=== PATIENT | female | born 1945 | race Caucasian/White ===

== ENCOUNTER 2017-09-07 12:54 | Outpatient (CLI) | payer BC, MEDICARE ==
--- NOTE | 2017-09-07 14:21 | PRG ---
DATE OF SERVICE: 09/07/2017 HISTORY: Ms. Yanelis Cleary is a very pleasant 71-year-old accompanied by her who [facility] for evaluation of lymphedema and chronic venous hypertension associated with ulcer s and inflammation. The patient previously stated that she first developed venous ulcerations of the lower legs 3 years ago after spinal Surgery. The patient stated she later underwent venous ablation on the right and on the left in [place]. The patient has a pneumatic pump for in-home lymphedema thera py. She states that she has not been able to use her pneumatic pump because of the degree of drainag e from her right and left lower legs. PHYSICAL EXAMINATION: VITAL SIGNS: Temperature 97.8, pulse 115, respirations 19, blood pressure 108/63. Accu-Chek 124. EXTREMITIES: Large venous ulcerations of the right and left lower legs are present with copious drai nage from the wounds. Cellulitis of the right and left lower legs is also present. Maceration of th e skin of the right and left lower legs is present. Edema of both lower extremities is present. ASSESSMENT AND PLAN: 1. Chronic venous hypertension with ulcers and inflammation. Cellulitis of the right and left lower legs is also present on exam today. Dr. Welch's office has been contacted and I have explai nita to the patient that evaluation for admission for IV antibiotics for cellulitis is recommended. T he patient states she will report to the ER upon her discharge from clinic today. 2. Lymphedema tarda. The patient has acquired a pneumatic pump, but has been unable to utilize her pneumatic pump because of the degree of drainage associated with her wounds. 3. Asthma. 4. Hypertension. 5. Diabetes mellitus. The patient's Accu-Chek in clinic today is 124. The patient has been reminde d that for optimal wound healing, her blood glucoses should remain below 150. 6. Arthritis.
== END 2017-09-07 12:55 | disposition home or self-care (01) ==
LOC: WCC 12:54
PROVIDERS: ATTEND Family Medicine
DX: I87.333 Chronic venous hypertension (idiopathic) with ulcer and inflammation of bilateral lower extremity (principal); E11.622 Type 2 diabetes mellitus with other skin ulcer; L97.929 Non-pressure chronic ulcer of unspecified part of left lower leg with unspecified severity; L97.919 Non-pressure chronic ulcer of unspecified part of right lower leg with unspecified severity; I89.0 Lymphedema, not elsewhere classified; J45.909 Unspecified asthma, uncomplicated; M19.90 Unspecified osteoarthritis, unspecified site; I10 Essential (primary) hypertension
CPT/HCPCS: 97602; 99213; G0463

== ENCOUNTER 2017-09-07 14:16 | Inpatient (IN) | payer MEDICARE, BC ==
[2017-09-07 15:45] LABS: #Basophils 0.1 thou/uL (0.0-0.2); #Eosinphils 0.6 thou/uL (0.0-0.7); #Lymphocytes 1.1 thou/uL (1.20-3.40); #Monocytes 1.2 thou/uL (0.11-0.59); #Neutrophils 11.8 thou/uL (1.40-6.50); %Basophils 0.4 % (0.0-1.0); %Eosinophils 4.3 % (0.0-10.0); %Lymphocytes 7.4 % (21.0-51.0); %Monocytes 8.1 % (0.0-10.0); %Neutrophils 79.9 % (42.0-75.0); Hemoglobin 9.3 g/dL (12.0-16.0); Mean Corpuscular Hemoglobin 26.2 pg (27.0-31.0); Mean Corpuscular Volume 84.5 fL (78.0-98.0); Mean Platelet Volume 6.4 fL (7.4-10.4); Platelet Count 368 thou/uL (130-400); RBC Distribution Width 18.3 % (11.5-14.5); Red Blood Cell (RBC) Count 3.57 mill/uL (4.20-5.40); White Blood Cell (WBC) Count 14.8 thou/uL (4.8-10.8)
[2017-09-07 16:08] LABS: ALT (SGPT) 10 U/L (8-55); AST (SGOT) 12 U/L (5-34); Alkaline Phosphatase 123 U/L (40-150); Anion Gap 13 mmol/L (10-20); BUN (Urea Nitrogen) 43 mg/dL (9.8-20.1); Bilirubin, Total 0.2 mg/dL (0.2-1.2); Calc. Creatinine Clearance 0 mL/min (70-130); Calcium 9.1 mg/dL (7.8-10.44); Carbon Dioxide 20 mmol/L (23-31); Chloride 104 mmol/L (98-107); Estimated GFR-MDRD 50; Globulin 3.6 g/dL (2.4-3.5); Glucose 277 mg/dL (83-110); Potassium 4.8 mmol/L (3.5-5.1); Protein, Total 6.6 g/dL (6.0-8.3); Sodium 132 mmol/L (136-145)
[2017-09-07] MEDS ORDERED: Piperacillin/Tazobactam 4.5 GM VIAL ONE (17:32)
[2017-09-07] MEDS ORDERED: Piperacillin/Tazobactam 4.5 GM in Sodium Chloride 0.9% 100 ML IVPB SCH ×2 (17:45→23:59)
--- NOTE | 2017-09-07 19:29 | RAD ---
THREE VIEWS OF THE RIGHT FORELE09/07/17 INDICATION: Right foreleg pain. COMPARISON: None. FINDINGS: There is advanced osteoarthrosis of the right knee. No acute fracture or subluxation is evident. Ther e is soft tissue swelling of the right foreleg. IMPRESSION: No acute osseous abnormality. Soft tissue of the right foreleg. POS: BH
--- NOTE | 2017-09-07 19:32 | RAD ---
FOUR VIEWS OF THE LEFT FORELE09/07/17 INDICATION: Left leg pain. FINDINGS: There is a left total knee prosthesis. There is soft tissue swelling of the left leg. No definite acu te fracture, subluxation is evident. IMPRESSION: No definite acute osseous abnormality. Soft tissue swelling left foreleg. POS: [facility]
[2017-09-07] MEDS ORDERED: Calcium Carbonate 500 MG ChewTAB PO PRN (19:42)
[2017-09-07] MEDS ORDERED: Ondansetron ODT 4 MG TAB PO PRN (19:42)
[2017-09-07] MEDS ORDERED: VANCOMYCIN/ RENALLY ADJUST ANTIBIOTICS IVPB PRN (19:42)
[2017-09-07] MEDS ORDERED: Milk Of Magnesia 30 ML UDCUP PO PRN (19:42)
[2017-09-07] MEDS ORDERED: Senokot 8.6 MG TAB PO PRN (19:42)
[2017-09-07] MEDS ORDERED: Ondansetron HCl/PF 4 MG/2 ML Vial IVP PRN ×2 (19:42→19:46)
[2017-09-07] MEDS ORDERED: Mag-Al 1200 mg/1200 mg/30 ML UDCUP PO PRN (19:42)
[2017-09-07] MEDS ORDERED: Sodium Chloride 0.9% 1,000 ML IV SCH (19:46)
[2017-09-07] MEDS ORDERED: Ondansetron ODT 4 MG TAB SL PRN (19:46)
--- NOTE | 2017-09-07 19:46 | HP ---
DATE OF ADMISSION: 09/07/2017 PRIMARY CARE PHYSICIAN: Dr. Welch. CHIEF COMPLAINT: Bilateral lower extremity erythema and pain. Please note the patient was sent from [facility] for IV antibiotics. HISTORY OF PRESENT ILLNESS: Patient is a 71-year-old female with chronic venous hypertension with ulcerations and inflammation over the last 3 years, hypertension, diabetes mellitus type 2, chronic atrial fibrillation on anticoagulation who presented to the emergency room from [facility] with above complaints. Patient has a long history of venous ulceration of the lower extremity over the last 3 years that developed after spinal surgery. She underwent venous ablations in bilateral lower extremities at outside facility. She has been also started on pneumatic pump for in-home lymphedema therapy; however, she has not started it due to worsening lower extremity swelling along with drainage. She had a low-grade fever with intermittent chills. Over the last 2-3 days, she noticed worsening pain in bilateral lower extremities along with serosanguineous drainage and worsening erythema. She was seen at the [facility] today and was sent to the emergency room for hospital admission and IV antibiotics. PAST MEDICAL HISTORY: 1. Chronic venous hypertension with ulceration and inflammation as discussed above. 2. Diabetes mellitus type 2. 3. Hypertension. 4. Mild intermittent asthma. 5. Chronic atrial fibrillation, on anticoagulation. 6. History of DVT in the left lower extremity. 7. Physical deconditioning. 8. GERD. 9. Chronic low back pain. 10. Chronic kidney disease, stage 3. PAST SURGICAL HISTORY: 1. Hysterectomy. 2. Cholecystectomy. 3. Pacemaker placement. 4. Left total knee replacement. 5. Bilateral lower extremity venous ablations. ALLERGIES: Patient denies any drug allergies. CURRENT HOME MEDICATIONS: Confirmed with the patient's Eliquis 5 mg b.i.d., Lantus 60 units b.i.d., Humalog sliding scale up to 25 units with each meal, Lovaza 2 grams b.i.d., aspirin 81 mg daily, carvedilol 25 mg b.i.d., valsartan 80 mg daily, torsemide 20-40 mg daily, Xopenex as needed. SOCIAL HISTORY: Patient currently lives at home. She is more or less wheelchair dependent. She lives at home with her spouse. She is FULL CODE. She makes her own decision with the help of her spouse. FAMILY HISTORY: Parents with heart disease. REVIEW OF SYSTEMS: The following complete review of systems was negative, unless otherwise mentioned in the HPI or below: Constitutional: Weight loss or gain, ability to conduct usual activities. Skin: Rash, itching. Eyes: Double vision, pain. ENT/Mouth: Nose bleeding, neck stiffness, pain, tenderness. Cardiovascular: Palpitations, dyspnea on exertion, orthopnea. Respiratory: Shortness of breath, wheezing, cough, hemoptysis, fever or night sweats. Gastrointestinal: Poor appetite, abdominal pain, heartburn, nausea, vomiting, constipation, or diarrhea. Genitourinary: Urgency, frequency, dysuria, nocturia. Musculoskeletal: Pain, swelling. Neurologic/Psychiatric: Anxiety, depression. Allergy/Immunologic: Skin rash, bleeding tendency. PHYSICAL EXAMINATION: VITAL SIGNS: Vital signs in the [facility] showed respirations of 19, pulse rate of 115, temperature 97.8 with blood pressure 108/63. Her temperature in the emergency room was 98.1. GENERAL: A 71-year-old female in distress due to bilateral lower extremity pain. The pain is still persistent despite 2 mg IV morphine. HEENT: Head is atraumatic, normocephalic, Sclerae are anicteric. Moist mucous membrane, no oral lesion. NECK: Supple, no JVD, no carotid bruit. LUNGS: Clear to auscultation bilaterally. No wheezing, rales or rhonchi. HEART: S1, S2 present. Irregularly irregular, 2/6 systolic murmur over the mitral area. ABDOMEN: Soft, nontender, bowel sounds present. Obese. EXTREMITIES: There is significant erythema in bilateral leg up to the knees with bullae. There is maceration of the skin of bilateral lower extremities. Bilateral lower extremity has 3+ to 4+ edema. It was tender to touch and warm. NEUROLOGIC: Grossly nonfocal, moves all four extremities. PSYCHIATRY: Alert, awake, oriented x3. SKIN: Warm and dry. LYMPH NODES: No palpable lymph nodes in the neck. PERIPHERAL VASCULAR: Radial pulses palpable bilaterally. MUSCULOSKELETAL: No joint swelling or tenderness. SKIN: As discussed above. LYMPH NODES: No palpable lymph nodes in the neck and groin. LABORATORY FINDINGS: CBC showed WBC 14.8 with hemoglobin 9.3, hematocrit 30.2, platelets of 368, neutrophils were 79.9. Lactic acid 1.2, BUN 43, creatinine 1.08, sodium 132, potassium 4.8, chloride 104, bicarbonate 20. X-ray of the fibula by my review was negative for any fractures or dislocation. Official report is pending at this time. Telemetry monitoring by my review showed atrial fibrillation. IMPRESSION: 1. Sepsis secondary to extensive bilateral lower extremity cellulitis with ulceration and drainage. 2. Diabetes mellitus type 2, on insulin. 3. Chronic kidney disease stage 3. 4. Chronic atrial fibrillation, on anticoagulation. 5. Hypertension. 6. Dyslipidemia. 7. Mild intermittent asthma. 8. Mild hyponatremia. 9. Metabolic acidosis, probably secondary to sepsis. Lactic acid was 1.2. 10. Morbid obesity. 11. Bilateral lower extremity pain. 12. Degenerative joint disease. 13. Gastroesophageal reflux disease. 14. Chronic lymphedema in bilateral lower extremities with venous hypertension and ulceration. PLAN: Patient will be monitored on the medical floor. Patient will require 3- 4 days IV antibiotics. We will consult Infectious Disease and Wound Care. Leg elevation was emphasized. We will start her on insulin sliding scale with Lantus 50 units b.i.d. with aggressive sliding scale. Resume Eliquis. We will resume aspirin, carvedilol, valsartan, torsemide with nebulizer treatment. We will consult physical therapy, occupational therapy. We will control pain. We will probably add low dose gabapentin. Plan of care was discussed with the patient and the family in detail. They stated understanding. MTDD
[2017-09-07] MEDS ORDERED: Dextrose 50% Abboject 50 ML SYRINGE SLOW IVP PRN (19:47)
[2017-09-07] MEDS ORDERED: Dextrose 5% in Water 1,000 ML IV PRN (19:47)
[2017-09-07] MEDS ORDERED: Insulin Regular 300 UNITS/3 ML VIAL SC PRN (19:47)
[2017-09-07] MEDS: traMADol HCl 50 MG TAB PO PRN (20:53)
[2017-09-07] MEDS ORDERED: Carvedilol 25 MG TAB PO SCH (21:00)
[2017-09-07] MEDS: Gabapentin 100 MG CAP PO SCH (22:31)
[2017-09-07] MEDS: Insulin Glargine 50 UNITS in Pre-Filled Syringe 1 EACH SC SCH (22:31)
[2017-09-07] MEDS: Apixaban 5 MG TAB PO SCH (22:32)
[2017-09-07] MEDS: Famotidine 20 MG TAB PO SCH (22:33)
[2017-09-07] MEDS: Insulin Regular 300 UNITS/3 ML VIAL SC SCH (22:33)
[2017-09-07] MEDS: Senokot S 8.6-50 MG TAB PO SCH (22:35)
[2017-09-07] MEDS: Acetaminophen/Codeine 30-300mg Tablet PO PRN (23:32)
[2017-09-08] MEDS: Piperacillin/Tazobactam 3.375 GM in Sodium Chloride 0.9% 100 ML IVPB SCH ×3 (00:10→11:57)
[2017-09-08] MEDS: Vancomycin HCl 1.25 GM in Sodium Chloride 0.9% 250 ML 250 ML IVPB SCH ×2 (02:11→16:59)
[2017-09-08] MEDS: Acetaminophen/Codeine 30-300mg Tablet PO PRN ×3 (03:33→21:22)
[2017-09-08] MEDS ORDERED: Vancomycin HCl 1 GM in Premix Bag 1 BAG IVPB SCH (05:00)
[2017-09-08 05:37] LABS: Anion Gap 14 mmol/L (10-20); BUN (Urea Nitrogen) 44 mg/dL (9.8-20.1); Calc. Creatinine Clearance 112 mL/min (70-130); Calcium 8.9 mg/dL (7.8-10.44); Carbon Dioxide 21 mmol/L (23-31); Chloride 103 mmol/L (98-107); Estimated GFR-MDRD 53; Glucose 250 mg/dL (83-110); Magnesium 2.2 mg/dL (1.6-2.6); Potassium 5.1 mmol/L (3.5-5.1); Sodium 133 mmol/L (136-145)
[2017-09-08 06:21] LABS: Band 8 % (5-11); Eosinophils 1 % (0-10); Hemoglobin 9.4 g/dL (12.0-16.0); Hypochromia SLIGHT = 6-15 cells (100X) (0-5/hpf); Lymphocytes 6 % (21-51); MDiff Complete? YES; Mean Corpuscular HGB CONC 30.7 g/dL (32.0-36.0); Mean Corpuscular Hemoglobin 26.1 pg (27.0-31.0); Mean Corpuscular Volume 84.8 fL (78.0-98.0); Mean Platelet Volume 6.6 fL (7.4-10.4); Monocytes 6 % (0-10); Neutrophil 79 % (42-75); PLT Morphology Comment Appears Adequate; Platelet Count 393 thou/uL (130-400); RBC Distribution Width 18.2 % (11.5-14.5); White Blood Cell (WBC) Count 21.4 thou/uL (4.8-10.8)
[2017-09-08] MEDS ORDERED: Metoprolol Tartrate 50 MG TAB PO SCH ×2 (08:10→21:00)
[2017-09-08] MEDS: Insulin Regular 300 UNITS/3 ML VIAL SC SCH ×2 (08:22→21:23)
[2017-09-08] MEDS: Famotidine 20 MG TAB PO SCH ×2 (08:23→21:13)
[2017-09-08] MEDS: Apixaban 5 MG TAB PO SCH ×2 (08:23→21:12)
[2017-09-08] MEDS: Senokot S 8.6-50 MG TAB PO SCH ×2 (08:23→21:14)
[2017-09-08] MEDS: Saccharomyces boulardii 250 MG CAP PO SCH (08:23)
[2017-09-08] MEDS: Aspirin 81 mg Enteric Coated Tablet PO SCH (08:23)
[2017-09-08] MEDS: Gabapentin 100 MG CAP PO SCH ×3 (08:24→21:13)
[2017-09-08] MEDS: Nystatin Powder 15 GM BOT TOP SCH ×2 (08:24→21:14)
[2017-09-08] MEDS: Torsemide 20 MG TAB PO SCH ×2 (08:25→14:19)
[2017-09-08] MEDS: Valsartan 80 MG TAB PO SCH (08:25)
[2017-09-08] MEDS ORDERED: Furosemide 40 MG/4 ML VIAL SLOW IVP SCH (08:45)
[2017-09-08] MEDS ORDERED: Insulin Glargine 40 UNITS in Pre-Filled Syringe 1 EACH SC SCH (09:00)
[2017-09-08] MEDS ORDERED: Insulin Glargine 50 UNITS in Pre-Filled Syringe 1 EACH SC SCH (09:00)
[2017-09-08] MEDS: traMADol HCl 50 MG TAB PO PRN (09:33)
[2017-09-08] MEDS ORDERED: diphenhydrAMINE 25 MG CAP PO PRN (10:41)
[2017-09-08] MEDS ORDERED: Fentanyl 100 MCG/2 ML VIAL SLOW IVP PRN (10:43)
[2017-09-08] MEDS ORDERED: Loratadine 10 MG TAB PO PRN (10:43)
--- NOTE | 2017-09-08 11:28 | RAD ---
PORTABLE UPRIGHT FRONTAL CHEST RADIOGRAPH: 09/08/2017 HISTORY: Short of breath. COMPARISON: None. FINDINGS: There is a multilead transvenous pacing device inserted via a left subclavian approach. A dorsal col umn stimulator overlies the lower thoracic spine. The cardiac silhouette is enlarged. No pneumothor ax, pleural fluid, lobar consolidation, or alveolar edema. IMPRESSION: No focal consolidation or alveolar edema. POS: [facility]
[2017-09-08] MEDS ORDERED: Insulin Regular 300 UNITS/3 ML VIAL SC SCH ×2 (11:30→16:30)
--- NOTE | 2017-09-08 13:34 | EKG ---
Test Reason : Blood Pressure : / mmHG Vent. Rate : 115 BPM Atrial Rate : 082 BPM P-R Int : 000 ms QRS Dur : 074 ms QT Int : 310 ms P-R-T Axes : 000 034 -57 degrees QTc Int : 428 ms Atrial fibrillation with rapid ventricular response Nonspecific ST and T wave abnormality Abnormal ECG Confirmed by SALIMA BLACKWOOD ([id number]) on 09/08/2017 1:33:39 PM Referred By: VINAYAK Confirmed By:SALIMA BLACKWOOD
[2017-09-08] MEDS: cefTRIAXone\\ROCEPHIN 1 GM, Admixture Fee 1 EACH in Sodium Chloride 0.9% 100 ML IVPB SCH (18:00)
[2017-09-08] MEDS: Insulin Glargine 50 UNITS in Pre-Filled Syringe 1 EACH SC SCH (21:13)
--- NOTE | 2017-09-08 22:48 | PDOC.PN ---
- Subjective Encounter Start Date: 09/08/17 Encounter Start Time: 09:00 RN called due to SOB with tachycardia with HR in 130s. Pt in mild resp distress requiring O2 supp. Has discomfort in B/L leg. No other complaints. No other overnight events. Patient seen and examined. - Objective Resuscitation Status: Resuscitation Status FULL:Full Resuscitation MAR Reviewed: Yes Vital Signs & Weight: Vital Signs (12 hours) Temp Pulse Resp BP Pulse Ox 09/08/17 20:15 97.9 F 91 18 139/95 H 100 09/08/17 20:00 100 09/08/17 16:50 98.5 F 111 H 20 179/70 H 100 Weight Admit Weight 311 lb Weight 311 lb 4.8 oz Most Recent Monitor Data Heart Rate from ECG 110 NIBP 141/77 NIBP BP-Mean 105 Respiration from ECG 20 SpO2 83 I&O: 09/07/17 09/08/17 09/09/17 06:59 06:59 06:59 Intake Total 640 Output Total 595 Balance 45 Result Diagrams: 09/09/17 05:02 09/09/17 05:02 Additional Labs: Accuchecks 09/08/17 09/08/17 09/08/17 21:01 20:15 19:25 POC Glucose 76 74 81 09/08/17 09/08/17 09/08/17 16:48 10:57 04:44 POC Glucose 120 H 202 H 272 H Microbiology 09/07/17 16:34 Venous blood - Left Arm Blood Culture - Preliminary Specimen has been received and culture in progress. No Growth to date. 09/07/17 16:10 Venous blood - Right Arm Blood Culture - Preliminary Specimen has been received and culture in progress. No Growth to date. Radiology Reviewed by me: Yes (CXR - No infiltrate/edema) EKG Reviewed by me: Yes (Afib with RVR) Phys Exam - Physical Examination Pt in mild distress Respiratory: no wheezing Bibasilar rales with rhonchi B/L, Some accessory muscle use Cardiovascular: no rub, irregular No heaves/pulsations, 2/6 SM over M area Gastrointestinal: soft, non-tender, no distention, positive bowel sounds Obese Musculoskeletal: edema present with erythema in B/L Le Neurological: non-focal, moves all 4 limbs Psychiatric: normal affect, A&O x 3 Dx/Plan - Plan plan discussed w/ family, mccullough catheter, continue antibiotics, PT/OT, social media marketing manager, respiratory therapy, incentive spirometry IMPRESSION: 1. Sepsis secondary to extensive bilateral lower extremity cellulitis with ulceration and drainage ? bacteremia 2. Chronic atrial fibrillation with RVR, (on anticoagulation) 3. Diabetes mellitus type 2, on insulin. 4. Chronic kidney disease stage 3. 5. Hypertension 6. Dyslipidemia/Mild intermittent asthma/Mild hyponatremia./Metabolic acidosis/ Bilateral lower extremity pain/Degenerative joint disease/Gastroesophageal reflux disease/Chronic lymphedema in bilateral lower extremities with venous hypertension and ulceration/ Morbid obesity BMI 49. PLAN: * Change Coreg to Metoprolol for rate control with Eliquis * T/F to Tele for close monitoring * Cont Vancomycin with Zosyn, Monitor Vancomycin level * Increase Lantus dose * 1 dose of Lasix * Cont other meds as below * Await cultures * Cont Wound care * AM labs Review of Systems - Review of Systems Constitutional: malaise. negative: fever, chills, sweats, weakness, other Respiratory: negative: Cough, Dry, Shortness of Breath, Hemoptysis, SOB with Excertion, Pleuritic Pain, Sputum, Wheezing Cardiovascular: palpitations, orthopnea, edema. negative: chest pain, paroxysmal nocturnal dyspnea, light headedness, other Gastrointestinal: negative: Nausea, Vomiting, Abdominal Pain, Diarrhea, Constipation, Melena, Hematochezia, Other - Medications/Allergies Allergies/Adverse Reactions: Allergies Allergy/AdvReac Type Severity Reaction Status Date / Time No Known Allergies Allergy Unverified 09/07/17 17:38 Medications: Current Medications Acetaminophen (Tylenol) 650 mg PO Q4H PRN PRN Reason: Headache/Fever or Pain Acetaminophen/Codeine Phosphate (Tylenol #3) 1 tab PO Q4H PRN PRN Reason: Moderate Pain (4-6) Last Admin: 09/08/17 21:22 Dose: 1 tab Al Hydroxide/Mg Hydroxide (Maalox) 30 ml PO Q6H PRN PRN Reason: Heartburn or Indigestion Albuterol/Ipratropium (Duoneb) 3 ml NEB [id number] PRN PRN Reason: SOB &/or Wheezing Apixaban (Eliquis) 5 mg PO BID [facility] Last Admin: 09/08/17 21:12 Dose: 5 mg Aspirin (Ecotrin) 81 mg PO DAILY [facility] Last Admin: 09/08/17 08:23 Dose: 81 mg Calcium Carbonate (Tums) 1,000 mg PO Q4H PRN PRN Reason: Heartburn or Indigestion Dextrose/Water (Dextrose 50%) 25 gm SLOW IVP PRN PRN PRN Reason: Hypoglycemia Diltiazem HCl (Cardizem) 30 mg PO Q6HR PRN PRN Reason: HR >120 sustained Diphenhydramine HCl (Benadryl) 25 mg PO Q6H PRN PRN Reason: Itching & Insomnia Stop: 09/09/17 10:42 Last Admin: 09/08/17 11:25 Dose: 25 mg Famotidine (Pepcid) 20 mg PO BID [facility] Last Admin: 09/08/17 21:13 Dose: 20 mg Fentanyl (Sublimaze) 25 mcg SLOW IVP DAILYPRN PRN PRN Reason: Wound Care Last Admin: 09/08/17 12:09 Dose: 25 mcg Gabapentin (Neurontin) 100 mg PO TID [facility] Last Admin: 09/08/17 21:13 Dose: 100 mg Glucagon (Glucagon) 1 mg IM PRN PRN PRN Reason: Hypoglycemia Dextrose/Water (D5w) 1,000 mls @ 0 mls/hr IV .Q0M PRN; As Directed PRN Reason: Hypoglycemia Insulin Glargine 50 units/ (Miscellaneous Medication) 0.5 mls @ 0 mls/hr SC HS [facility] Last Admin: 09/08/17 21:13 Dose: Not Given Insulin Glargine 50 units/ (Miscellaneous Medication) 0.5 mls @ 0 mls/hr SC QAM [facility] Last Admin: 09/08/17 09:06 Dose: Not Given Ceftriaxone Sodium 1 gm/Miscellaneous Medication 1 each/ Sodium Chloride 100 mls @ 200 mls/hr IVPB 1700 [facility] Last Admin: 09/08/17 18:00 Dose: 100 mls Insulin Human Regular (Humulin R) 0 units SC .BEDTIME SLIDING SC PRN PRN Reason: Bedtime Correctional Scale Insulin Human Regular (Humulin R) 0 units SC .AGGRESSIVE SLIDING PRN PRN Reason: Aggressive Sliding Scale Insulin Human Regular (Humulin R) 5 units SC 0730 [facility] Last Admin: 09/08/17 08:22 Dose: 5 units Insulin Human Regular (Humulin R) 5 units SC 1130 [facility] Last Admin: 09/08/17 11:26 Dose: 5 unit Insulin Human Regular (Humulin R) 5 units PA 1630 [facility] Last Admin: 09/08/17 18:02 Dose: 5 unit Insulin Human Regular (Humulin R) 5 units PA HS [facility] Last Admin: 09/08/17 21:23 Dose: Not Given Loratadine (Claritin) 10 mg PO DAILY [facility] Magnesium Hydroxide (Milk Of Magnesium) 30 ml PO DAILYPRN PRN PRN Reason: Constipation Last Admin: 09/08/17 14:00 Dose: 30 ml Metoprolol Tartrate (Lopressor) 50 mg PO BID [facility] Last Admin: 09/08/17 21:13 Dose: 50 mg Nystatin (Mycostatin Powder) 0 gm TOP BID [facility] Last Admin: 09/08/17 21:14 Dose: Not Given Ondansetron HCl (Zofran Odt) 4 mg PO Q6H PRN PRN Reason: Nausea/Vomiting Ondansetron HCl (Zofran) 4 mg IVP Q6H PRN PRN Reason: Nausea/Vomiting Saccharomyces Boulardii (Florastor) 250 mg PO DAILY [facility] Last Admin: 09/08/17 08:23 Dose: 250 mg Senna (Senokot) 2 tab PO HSPRN PRN PRN Reason: Constipation Senna/Docusate Sodium (Senokot S) 1 tab PO BID [facility] Last Admin: 09/08/17 21:14 Dose: Not Given Sodium Chloride (Flush - Normal Saline) 10 ml IVF Q12HR [facility] Last Admin: 09/08/17 21:14 Dose: 10 ml Sodium Chloride (Flush - Normal Saline) 10 ml IVF PRN PRN PRN Reason: Saline Flush Last Admin: 09/08/17 18:01 Dose: 10 ml Torsemide (Demadex) 20 mg PO BID@0900,1400 [facility] Last Admin: 09/08/17 14:19 Dose: 20 mg Tramadol HCl (Ultram) 50 mg PO Q4H PRN PRN Reason: Moderate Pain (4-6) Last Admin: 09/08/17 09:33 Dose: 50 mg Valsartan (Diovan) 80 mg PO DAILY [facility] Last Admin: 09/08/17 08:25 Dose: 80 mg
--- NOTE | 2017-09-09 | CON ---
DATE OF CONSULTATION: 09/08/2017 REASON FOR CONSULTATION: Cellulitis, lower extremities. HISTORY OF PRESENT ILLNESS: A 71-year-old patient, who has a history of venous hypertension and ulcerations, stasis dermatitis, type 2 diabetes and hypertension and chronic atrial fibrillation, on anticoagulation and a prior history of deep vein thrombosis in the left lower extremity, who was admitted because of worsening extremity swelling along with drainage, low grade temperature with chills which have worsened over the past 2-3 days prior to admission. She has some drainage as well associated with it. The patient was seen at wound care and referred to the hospital for admission. According to the wound care note, the patient had not been able to use her pneumatic pump because of drainage associated with the wounds. Currently, she has itching in the lower extremities. She has some dyspnea. No headaches, no sore throat, odynophagia, or dysphagia, no chest pain, no abdominal pain, no diarrhea. The patient is voiding with an indwelling catheter. PAST MEDICAL HISTORY: Includes venous hypertension; chronic stasis dermatitis with ulcerations; type 2 diabetes; atrial fibrillation, on anticoagulation; prior DVT; low back pain; and renal insufficiency. PAST SURGICAL HISTORY: Hysterectomy, cholecystectomy, pacemaker placement, left TKR, bilateral lower extremity venous ablations. ALLERGIES: None. MEDICATIONS: Currently the patient receiving acetaminophen, Maalox, DuoNeb, Eliquis, Ecotrin, Tums, Cardizem, Benadryl, Pepcid, Sublimaze, Neurontin, insulin, loratadine, metoprolol, nystatin, Zosyn, vancomycin. FAMILY HISTORY: Coronary artery disease. SOCIAL HISTORY: Lives at home with . Wheelchair dependent. Never smoker. PHYSICAL EXAMINATION: VITAL SIGNS: T-max 98.3, blood pressure 130/70, pulse 118, O2 sat 97%. SKIN: Demonstrates areas of stasis dermatitis exfoliation. The medial aspect of the left thigh and circumferential areas of skin ulceration with re- epithelization in lower extremities, still blistering with epidermolysis and dry scabs covering this area of ulceration, which is distributed in a very symmetric circumferential fashion, right and left legs, starting about a 15 cm below the right and left knees and extending towards the foot. The patient has no lymphadenopathy. GENERAL: Awake, chronically ill appearing. HEENT: Oral cavity with still quite a few teeth in place. Oral mucosa is moist. NECK: Supple, no jugular vein distention. LUNGS: With symmetric air entry. HEART: S1, S2, regular rate with a soft aortic murmur. ABDOMEN: Not distended or tender. No ascites. No bladder distention. Some intertriginous maceration in the lower abdominal fold area. EXTREMITIES: No joint inflammatory activity noted. Pulses are 1+ in dorsalis pedis. She moves extremities with limitations, caused by the inflammatory process in lower extremities. NEUROLOGIC: She is awake, oriented, follows commands. LABORATORY DATA AND IMAGING: Showed white cell count 14.8 and then 21.4, hemoglobin 9.3 and 9.4, platelets 393 with 79% neutrophils. Chemistry with sodium 133, creatinine 1.03, calcium 8.9. BNP 291. Microbiology: Two sets of blood cultures thus far no growth. She has chest x-ray with no infiltrates. Tibia and fibula x-ray with no bony lesions. ASSESSMENT: 1. Chronic venous hypertension and chronic ulcers in lower extremities, stasis dermatitis. 2. Worsening of skin drainage. 3. Neutrophilia with a left shift. 4. Chills. DISCUSSION: Differential diagnosis includes stasis dermatitis with or not superimposed cellulitis right and left legs. In view of the neutrophilia, it is likely that she has associated bacterial infection and beta hemolytic streptococci usually the causative agents in this kind of process, sometimes gram negative rods do have a role. We will transition the patient to Rocephin. Continue local compressive dressing. It looks like she would be eligible for compressive dressing as long as her vascular status appears to be intact. I was able to feel dorsalis pedis pulses, so she should be able to have compression dressings bilaterally. Need to monitor blood cultures to verify that she is not bacteremic. Following the acute phase of treatment switch to Keflex for a few days and then to PCN VK 250 mg twice daily secondary suppressive regimen for 6 months. MTDD
[2017-09-09] MEDS: traMADol HCl 50 MG TAB PO PRN (05:05)
[2017-09-09 05:27] LABS: Anion Gap 13 mmol/L (10-20); BUN (Urea Nitrogen) 46 mg/dL (9.8-20.1); Calc. Creatinine Clearance 109 mL/min (70-130); Calcium 9.2 mg/dL (7.8-10.44); Carbon Dioxide 22 mmol/L (23-31); Chloride 105 mmol/L (98-107); Estimated GFR-MDRD 51; Glucose 83 mg/dL (83-110); Magnesium 2.1 mg/dL (1.6-2.6); Potassium 5.4 mmol/L (3.5-5.1); Sodium 135 mmol/L (136-145)
[2017-09-09 05:38] LABS: #Basophils 0.1 thou/uL (0.0-0.2); #Eosinphils 0.4 thou/uL (0.0-0.7); #Monocytes 1.5 thou/uL (0.11-0.59); #Neutrophils 8.8 thou/uL (1.40-6.50); %Basophils 0.5 % (0.0-1.0); %Eosinophils 3.8 % (0.0-10.0); %Lymphocytes 8.4 % (21.0-51.0); %Monocytes 12.7 % (0.0-10.0); %Neutrophils 74.7 % (42.0-75.0); Hemoglobin 9.6 g/dL (12.0-16.0); Mean Corpuscular HGB CONC 30.1 g/dL (32.0-36.0); Mean Corpuscular Hemoglobin 25.7 pg (27.0-31.0); Mean Corpuscular Volume 85.5 fL (78.0-98.0); Mean Platelet Volume 6.7 fL (7.4-10.4); Platelet Count 417 thou/uL (130-400); RBC Distribution Width 18.4 % (11.5-14.5); Red Blood Cell (RBC) Count 3.72 mill/uL (4.20-5.40); White Blood Cell (WBC) Count 11.8 thou/uL (4.8-10.8)
[2017-09-09] MEDS: Insulin Regular 300 UNITS/3 ML VIAL SC SCH (08:32)
[2017-09-09] MEDS ORDERED: Furosemide 20 MG/2 ML VIAL SLOW IVP SCH (08:45)
[2017-09-09] MEDS: Metoprolol Tartrate 50 MG TAB PO SCH ×2 (09:56→20:41)
[2017-09-09] MEDS: Apixaban 5 MG TAB PO SCH ×2 (09:57→20:41)
[2017-09-09] MEDS: Doxycycline 100 MG CAP PO SCH ×2 (09:57→20:41)
[2017-09-09] MEDS: Torsemide 20 MG TAB PO SCH ×2 (09:57→15:37)
[2017-09-09] MEDS: Gabapentin 100 MG CAP PO SCH (09:57)
[2017-09-09] MEDS: Senokot S 8.6-50 MG TAB PO SCH ×2 (09:58→20:47)
[2017-09-09 10:00] LABS: Actual Bicarbonate (HCO3a) 21.1 mEq/L (22-28); Base Excess (BEa) -2.9 mEq/L (-2.0 to +3.0); CO2 Tension 33.8 mmHg (35.0-45.0); Hemoglobin (Hb) 9.9 g/dL (12.0-16.0); O2 Tension (PaO2) 78.3 mmHg (> 70.0); pH, Arterial 7.41 (7.35-7.45)
[2017-09-09 10:01] LABS: Calcium, Ionized 1.2 mmol/L (1.12-1.30)
[2017-09-09 10:02] LABS: Analyzer IN Cardio OR; Puncture Site RBA
[2017-09-09] MEDS: Aspirin 81 mg Enteric Coated Tablet PO SCH (10:02)
[2017-09-09] MEDS: Famotidine 20 MG TAB PO SCH ×2 (10:02→20:41)
[2017-09-09] MEDS: Loratadine 10 MG TAB PO SCH (10:02)
[2017-09-09] MEDS ORDERED: Lorazepam 2 MG/ML VIAL ONE (11:08)
[2017-09-09] MEDS ORDERED: Lorazepam 2 MG/ML VIAL SLOW IVP SCH (11:15)
[2017-09-09] MEDS: Insulin Glargine 30 UNITS in Pre-Filled Syringe 1 EACH SC SCH ×2 (11:16→20:46)
[2017-09-09] MEDS: Nystatin Powder 15 GM BOT TOP SCH ×2 (12:00→20:47)
[2017-09-09] MEDS: Saccharomyces boulardii 250 MG CAP PO SCH (12:01)
--- NOTE | 2017-09-09 14:22 | CT ---
CT BRAIN: Date: 09/09/17 PROVIDED CLINICAL HISTORY: Altered mental status. FINDINGS: No comparisons. The ventricular system appears normal in size and morphology. There is no evidence for intracranial h emorrhage or mass effect. The extracranial soft tissues and osseous structures demonstrate no acute f indings. IMPRESSION: No evidence for an intracranial hemorrhage or mass effect. POS: [facility]
[2017-09-09] MEDS ORDERED: Lorazepam 2 MG/ML VIAL SLOW IVP PRN (15:03)
--- NOTE | 2017-09-09 17:24 | PDOC.PN ---
- Subjective Encounter Start Date: 09/09/17 Encounter Start Time: 10:30 Patient seen and examined. Confused, Refusing O2 and meds at times. No overnight events - Objective Resuscitation Status: Resuscitation Status FULL:Full Resuscitation MAR Reviewed: Yes Vital Signs & Weight: Vital Signs (12 hours) Temp Pulse Resp BP Pulse Ox 09/09/17 12:58 98.0 F 122 H 19 162/84 H 97 09/09/17 07:38 97.8 F 108 H 22 H 99 09/09/17 07:34 97.8 F 108 H 22 H 161/65 H 99 Weight Admit Weight 311 lb Weight 313 lb 4.8 oz Most Recent Monitor Data Heart Rate from ECG 110 NIBP 141/77 NIBP BP-Mean 105 Respiration from ECG 20 SpO2 83 I&O: 09/08/17 09/09/17 09/10/17 06:59 06:59 06:59 Intake Total 1120 Output Total 1395 Balance -275 Result Diagrams: 09/09/17 05:02 09/09/17 05:02 Additional Labs: Accuchecks 09/09/17 09/09/17 09/09/17 17:16 14:12 12:20 POC Glucose 88 105 125 H 09/09/17 09/09/17 09/09/17 10:44 08:23 06:02 POC Glucose 118 H 109 78 09/09/17 09/09/17 09/08/17 03:23 00:58 23:12 POC Glucose 117 H 94 88 09/08/17 09/08/17 09/08/17 21:01 20:15 19:25 POC Glucose 76 74 81 Radiology Reviewed by me: Yes (CXR - No infiltrate) EKG Reviewed by me: Yes (Tele afib with RVR) Phys Exam - Physical Examination Confused, Agitated. Neck: no JVD Respiratory: no wheezing, no rhonchi Scat rales at bases, Symmetrical Cardiovascular: no rub, irregular No heaves/pulsations Gastrointestinal: soft, non-tender, no distention, positive bowel sounds Musculoskeletal: pulses present, edema present B/L LE dressing + Neurological: non-focal, moves all 4 limbs Agitated, Intermittent confusion Dx/Plan - Plan IMPRESSION: 1. Sepsis secondary to extensive bilateral lower extremity cellulitis with ulceration and drainage ? bacteremia 2. Chronic atrial fibrillation with RVR, (on anticoagulation) 3. Toxic Metabolic Encephalopathy 3. Diabetes mellitus type 2, on insulin. 4. Chronic kidney disease stage 3 with Hyperkalemia 5. Hypertension 6. Dyslipidemia/Mild intermittent asthma/Mild hyponatremia./Metabolic acidosis/ Bilateral lower extremity pain/Degenerative joint disease/Gastroesophageal reflux disease/Chronic lymphedema in bilateral lower extremities with venous hypertension and ulceration/ Morbid obesity BMI 49. PLAN: -STAT ABG for possible hypercapnia, CT brain, Neurochecks, -Hold Losartan due to hyperkalemia, 1 dose of IV 20 mg Lasix, -Increase Metoprolol to 75 mg BID due to tachycardia, Cont Eliquis -Cont sliding scale, DC additional 5 units with each meal, Reduce Lantus to 30 units BID -Cont other meds as below -Cont Wound care, AM labs, Add Doxycycline, Cont Ceftriaxone, Await cultures -AM labs -DC Gabapentin Review of Systems - Review of Systems Respiratory: negative: Cough, Dry, Shortness of Breath, Hemoptysis, SOB with Excertion, Pleuritic Pain, Sputum, Wheezing Cardiovascular: negative: chest pain, palpitations, orthopnea, paroxysmal nocturnal dyspnea, edema, light headedness, other - Medications/Allergies Allergies/Adverse Reactions: Allergies Allergy/AdvReac Type Severity Reaction Status Date / Time No Known Allergies Allergy Unverified 09/07/17 17:38 Medications: Current Medications Acetaminophen (Tylenol) 650 mg PO Q4H PRN PRN Reason: Headache/Fever or Pain Al Hydroxide/Mg Hydroxide (Maalox) 30 ml PO Q6H PRN PRN Reason: Heartburn or Indigestion Albuterol/Ipratropium (Duoneb) 3 ml NEB [id number] PRN PRN Reason: SOB &/or Wheezing Apixaban (Eliquis) 5 mg PO BID [facility] Last Admin: 09/09/17 09:57 Dose: 5 mg Aspirin (Ecotrin) 81 mg PO DAILY [facility] Last Admin: 09/09/17 10:02 Dose: Not Given Calcium Carbonate (Tums) 1,000 mg PO Q4H PRN PRN Reason: Heartburn or Indigestion Dextrose/Water (Dextrose 50%) 25 gm SLOW IVP PRN PRN PRN Reason: Hypoglycemia Diltiazem HCl (Cardizem) 30 mg PO Q6HR PRN PRN Reason: HR >120 sustained Doxycycline Hyclate (Vibramycin) 100 mg PO BID [facility] Last Admin: 09/09/17 09:57 Dose: 100 mg Famotidine (Pepcid) 20 mg PO BID [facility] Last Admin: 09/09/17 10:02 Dose: Not Given Fentanyl (Sublimaze) 25 mcg SLOW IVP DAILYPRN PRN PRN Reason: Wound Care Last Admin: 09/08/17 12:09 Dose: 25 mcg Glucagon (Glucagon) 1 mg IM PRN PRN PRN Reason: Hypoglycemia Dextrose/Water (D5w) 1,000 mls @ 0 mls/hr IV .Q0M PRN; As Directed PRN Reason: Hypoglycemia Ceftriaxone Sodium 1 gm/Miscellaneous Medication 1 each/ Sodium Chloride 100 mls @ 200 mls/hr IVPB 1700 [facility] Last Admin: 09/08/17 18:00 Dose: 100 mls Insulin Glargine 30 units/ (Miscellaneous Medication) 0.3 mls @ 0 mls/hr SC BID [facility] Last Admin: 09/09/17 11:16 Dose: Not Given Insulin Human Regular (Humulin R) 0 units SC .BEDTIME SLIDING SC PRN PRN Reason: Bedtime Correctional Scale Insulin Human Regular (Humulin R) 0 units SC .AGGRESSIVE SLIDING PRN PRN Reason: Aggressive Sliding Scale Loratadine (Claritin) 10 mg PO DAILY [facility] Last Admin: 09/09/17 10:02 Dose: Not Given Lorazepam (Ativan) 0.5 mg SLOW IVP Q6H PRN PRN Reason: Anxiety/Agitation Magnesium Hydroxide (Milk Of Magnesium) 30 ml PO DAILYPRN PRN PRN Reason: Constipation Last Admin: 09/08/17 14:00 Dose: 30 ml Metoprolol Tartrate (Lopressor) 75 mg PO BID [facility] Last Admin: 09/09/17 09:56 Dose: 75 mg Nystatin (Mycostatin Powder) 0 gm TOP BID [facility] Last Admin: 09/09/17 12:00 Dose: Not Given Ondansetron HCl (Zofran Odt) 4 mg PO Q6H PRN PRN Reason: Nausea/Vomiting Ondansetron HCl (Zofran) 4 mg IVP Q6H PRN PRN Reason: Nausea/Vomiting Saccharomyces Boulardii (Florastor) 250 mg PO DAILY [facility] Last Admin: 09/09/17 12:01 Dose: Not Given Senna (Senokot) 2 tab PO HSPRN PRN PRN Reason: Constipation Senna/Docusate Sodium (Senokot S) 1 tab PO BID [facility] Last Admin: 09/09/17 09:58 Dose: Not Given Sodium Chloride (Flush - Normal Saline) 10 ml IVF Q12HR [facility] Last Admin: 09/09/17 09:57 Dose: 10 ml Sodium Chloride (Flush - Normal Saline) 10 ml IVF PRN PRN PRN Reason: Saline Flush Last Admin: 09/08/17 18:01 Dose: 10 ml Torsemide (Demadex) 20 mg PO BID@0900,1400 [facility] Last Admin: 09/09/17 15:37 Dose: Not Given Tramadol HCl (Ultram) 50 mg PO Q4H PRN PRN Reason: Moderate Pain (4-6) Last Admin: 09/09/17 05:05 Dose: 50 mg Valsartan (Diovan) 80 mg PO DAILY [facility] Last Admin: 09/08/17 08:25 Dose: 80 mg
[2017-09-09] MEDS: cefTRIAXone\\ROCEPHIN 1 GM, Admixture Fee 1 EACH in Sodium Chloride 0.9% 100 ML IVPB SCH (17:26)
[2017-09-09] MEDS ORDERED: Insulin Glargine 40 UNITS in Pre-Filled Syringe 1 EACH SC SCH (21:00)
[2017-09-10 04:15] LABS: Anion Gap 15 mmol/L (10-20); BUN (Urea Nitrogen) 49 mg/dL (9.8-20.1); Calc. Creatinine Clearance 126 mL/min (70-130); Calcium 9.9 mg/dL (7.8-10.44); Carbon Dioxide 22 mmol/L (23-31); Chloride 106 mmol/L (98-107); Estimated GFR-MDRD 60; Glucose 88 mg/dL (83-110); Potassium 5.2 mmol/L (3.5-5.1); Sodium 138 mmol/L (136-145)
[2017-09-10 05:02] LABS: Hemoglobin 9.6 g/dL (12.0-16.0); Hypochromia SLIGHT = 6-15 cells (100X) (0-5/hpf); Lymphocytes 3 % (21-51); MDiff Complete? YES; Mean Corpuscular HGB CONC 29.7 g/dL (32.0-36.0); Mean Corpuscular Hemoglobin 25.1 pg (27.0-31.0); Mean Corpuscular Volume 84.4 fL (78.0-98.0); Mean Platelet Volume 6.4 fL (7.4-10.4); Monocytes 10 % (0-10); Neutrophil 87 % (42-75); PLT Morphology Comment Appears Adequate; Platelet Count 395 thou/uL (130-400); RBC Distribution Width 18.2 % (11.5-14.5); Red Blood Cell (RBC) Count 3.82 mill/uL (4.20-5.40); White Blood Cell (WBC) Count 9.3 thou/uL (4.8-10.8)
[2017-09-10] MEDS: Saccharomyces boulardii 250 MG CAP PO SCH (09:30)
[2017-09-10] MEDS: Doxycycline 100 MG CAP PO SCH ×2 (09:30→20:53)
[2017-09-10] MEDS: Apixaban 5 MG TAB PO SCH ×3 (09:30→20:52)
[2017-09-10] MEDS: Loratadine 10 MG TAB PO SCH (09:31)
[2017-09-10] MEDS: Famotidine 20 MG TAB PO SCH (09:31)
[2017-09-10] MEDS: Aspirin 81 mg Enteric Coated Tablet PO SCH (09:31)
[2017-09-10] MEDS: Metoprolol Tartrate 50 MG TAB PO SCH ×2 (09:31→20:53)
[2017-09-10] MEDS: Senokot S 8.6-50 MG TAB PO SCH ×2 (09:33→20:54)
[2017-09-10] MEDS: Torsemide 20 MG TAB PO SCH ×2 (10:10→14:28)
[2017-09-10] MEDS: Nystatin Powder 15 GM BOT TOP SCH ×2 (10:46→20:54)
[2017-09-10] MEDS: Insulin Glargine 30 UNITS in Pre-Filled Syringe 1 EACH SC SCH (10:47)
[2017-09-10] MEDS ORDERED: Clopidogrel Bisulfate 75 MG TAB ONE (13:00)
[2017-09-10] MEDS: Ziprasidone 20 MG VIAL IM PRN ×2 (13:59→21:12)
--- NOTE | 2017-09-10 15:06 | PDOC.PN ---
- Subjective Encounter Start Date: 09/10/17 Encounter Start Time: 14:00 Patient seen and examined for Sepsis. Remains confused. Events noted. - Objective Resuscitation Status: Resuscitation Status FULL:Full Resuscitation Vital Signs & Weight: Vital Signs (12 hours) Temp Pulse Resp BP Pulse Ox 09/10/17 11:35 99.5 F 108 H 17 166/102 H 94 L 09/10/17 09:52 95 09/10/17 07:45 97.6 F 105 H 23 H 97 09/10/17 07:43 97.6 F 105 H 23 H 166/118 H 100 09/10/17 04:00 98.9 F 88 21 H 155/96 H 98 Weight Admit Weight 311 lb Weight 301 lb 11.2 oz Most Recent Monitor Data Heart Rate from ECG 110 NIBP 141/77 NIBP BP-Mean 105 Respiration from ECG 20 SpO2 83 I&O: 09/09/17 09/10/17 09/11/17 06:59 06:59 06:59 Intake Total 1120 980 Output Total 1395 2750 Balance -275 -1770 Result Diagrams: 09/10/17 03:38 09/10/17 03:38 Additional Labs: Accuchecks 09/10/17 09/10/17 09/10/17 10:46 05:41 01:45 POC Glucose 82 91 72 09/09/17 09/09/17 09/09/17 23:58 21:56 20:48 POC Glucose 75 71 79 09/09/17 17:16 POC Glucose 88 EKG Reviewed by me: Yes (Tele Afib RVR) Phys Exam - Physical Examination Confused Respiratory: no wheezing, no rhonchi Cardiovascular: no rub, irregular Gastrointestinal: soft, positive bowel sounds Musculoskeletal: edema present B/L LE dressing + Neurological: moves all 4 limbs Follows commands to some extent Dx/Plan - Plan plan discussed w/ family IMPRESSION: 1. Sepsis secondary to extensive bilateral lower extremity cellulitis with ulceration and drainage ? bacteremia, WBC improving, Afebrile 2. Chronic atrial fibrillation with RVR, (on anticoagulation) 3. Toxic Metabolic Encephalopathy - multifactorial 4. Diabetes mellitus type 2, on insulin. 5. Chronic kidney disease stage 3 with Hyperkalemia - improving, Losartan on hold 6. Hypertension 7. Dyslipidemia/Mild intermittent asthma/Mild hyponatremia./Metabolic acidosis/ Bilateral lower extremity pain/Degenerative joint disease/GERD/Chronic lymphedema in bilateral lower extremities with venous hypertension and ulceration/ Morbid obesity BMI 49. PLAN: Cont Cefriaxone with Doxy AM labs Cont Metoprolol to 75 mg BID Cont Eliquis Cont sliding scale, Change Lantus to 35 units BID Cont other meds as below Cont Wound care, Cultures negative Add IV Metoprolol for HR > 120 (Patient has not received AM meds due to confusion) Cont IMCU monitoring Review of Systems - Review of Systems Other: ROS cannot obtain due to current mentation - Medications/Allergies Allergies/Adverse Reactions: Allergies Allergy/AdvReac Type Severity Reaction Status Date / Time No Known Allergies Allergy Unverified 09/07/17 17:38 Medications: Current Medications Acetaminophen (Tylenol) 650 mg PO Q4H PRN PRN Reason: Headache/Fever or Pain Al Hydroxide/Mg Hydroxide (Maalox) 30 ml PO Q6H PRN PRN Reason: Heartburn or Indigestion Albuterol/Ipratropium (Duoneb) 3 ml NEB [id number] PRN PRN Reason: SOB &/or Wheezing Apixaban (Eliquis) 5 mg PO BID [facility] Last Admin: 09/10/17 09:30 Dose: 5 mg Aspirin (Ecotrin) 81 mg PO DAILY [facility] Last Admin: 09/10/17 09:31 Dose: 81 mg Calcium Carbonate (Tums) 1,000 mg PO Q4H PRN PRN Reason: Heartburn or Indigestion Dextrose/Water (Dextrose 50%) 25 gm SLOW IVP PRN PRN PRN Reason: Hypoglycemia Diltiazem HCl (Cardizem) 30 mg PO Q6HR PRN PRN Reason: HR >120 sustained Doxycycline Hyclate (Vibramycin) 100 mg PO BID [facility] Last Admin: 09/10/17 09:30 Dose: 100 mg Glucagon (Glucagon) 1 mg IM PRN PRN PRN Reason: Hypoglycemia Dextrose/Water (D5w) 1,000 mls @ 0 mls/hr IV .Q0M PRN; As Directed PRN Reason: Hypoglycemia Ceftriaxone Sodium 1 gm/Miscellaneous Medication 1 each/ Sodium Chloride 100 mls @ 200 mls/hr IVPB 1700 [facility] Last Admin: 09/09/17 17:26 Dose: 100 mls Insulin Glargine 35 units/ (Miscellaneous Medication) 0.35 mls @ 0 mls/hr SC HS [facility] Insulin Glargine 35 units/ (Miscellaneous Medication) 0.35 mls @ 0 mls/hr SC QAM [facility] Insulin Human Regular (Humulin R) 0 units SC .BEDTIME SLIDING SC PRN PRN Reason: Bedtime Correctional Scale Insulin Human Regular (Humulin R) 0 units SC .AGGRESSIVE SLIDING PRN PRN Reason: Aggressive Sliding Scale Labetalol HCl (Normodyne) 10 mg SLOW IVP Q4H PRN PRN Reason: Systolic BP > 180 Magnesium Hydroxide (Milk Of Magnesium) 30 ml PO DAILYPRN PRN PRN Reason: Constipation Last Admin: 09/08/17 14:00 Dose: 30 ml Metoprolol Tartrate (Lopressor) 75 mg PO BID [facility] Last Admin: 09/10/17 09:31 Dose: 75 mg Metoprolol Tartrate (Lopressor) 5 mg IVP Q4H PRN PRN Reason: HR >120 Nystatin (Mycostatin Powder) 0 gm TOP BID [facility] Last Admin: 09/10/17 10:46 Dose: Not Given Ondansetron HCl (Zofran Odt) 4 mg PO Q6H PRN PRN Reason: Nausea/Vomiting Ondansetron HCl (Zofran) 4 mg IVP Q6H PRN PRN Reason: Nausea/Vomiting Saccharomyces Boulardii (Florastor) 250 mg PO DAILY [facility] Last Admin: 09/10/17 09:30 Dose: 250 mg Senna (Senokot) 2 tab PO HSPRN PRN PRN Reason: Constipation Senna/Docusate Sodium (Senokot S) 1 tab PO BID [facility] Last Admin: 09/10/17 09:33 Dose: Not Given Sodium Chloride (Flush - Normal Saline) 10 ml IVF Q12HR [facility] Last Admin: 09/10/17 09:33 Dose: 10 ml Sodium Chloride (Flush - Normal Saline) 10 ml IVF PRN PRN PRN Reason: Saline Flush Last Admin: 09/09/17 17:26 Dose: 10 ml Torsemide (Demadex) 20 mg PO BID@0900,1400 [facility] Last Admin: 09/10/17 14:28 Dose: Not Given Valsartan (Diovan) 80 mg PO DAILY [facility] Last Admin: 09/08/17 08:25 Dose: 80 mg Ziprasidone (Geodon) 20 mg IM BIDPRN PRN PRN Reason: Agitation Last Admin: 09/10/17 13:59 Dose: 20 mg
--- NOTE | 2017-09-10 18:17 | CON ---
DATE OF CONSULTATION: 09/10/2017 CONSULTING PHYSICIAN: [facility] consultation. REASON FOR CONSULTATION: Encephalopathy. HISTORY OF PRESENT ILLNESS: This patient is a 71-year-old female, who was admitted on 09/07/2017 for treatment of bilateral lower extremity cellulitis. She is unable to give much of a history because she is confused. Her says she became confused after receiving a dose of fentanyl on Monday. She got a dose of tramadol yesterday and she has been receiving occasional doses of Ativan. She was transferred back to the [facility] because of the mental status changes. At the time that I have examined her, the patient was delirious, she can be pleasant at times, but is completely disoriented. PAST MEDICAL HISTORY: 1. Chronic venous stasis with leg ulcers. 2. Diabetes mellitus, type 2. 3. Hypertension. 4. Asthma. 5. Chronic atrial fibrillation. 6. DVT. 7. Deconditioning. 8. Gastroesophageal reflux. 9. Low back pain. 10. Chronic kidney disease. PAST SURGICAL HISTORY: 1. Hysterectomy. 2. Cholecystectomy. 3. Pacemaker placement. 4. Left total knee replacement. 5. Venous ablations. ALLERGIES: None. MEDICATIONS PRIOR TO ADMISSION: Eliquis, Lantus insulin, Humalog insulin, Lovaza, aspirin, carvedilo l, valsartan, torsemide, Xopenex. SOCIAL HISTORY: Nonsmoker, does not consume alcohol, does not use illicit drugs. She is wheelchair dependent. FAMILY MEDICAL HISTORY: Remarkable for heart disease. REVIEW OF SYSTEMS: Cannot be obtained secondary to the patient's confusion. PHYSICAL EXAMINATION: VITAL SIGNS: Temperature 99.5, pulse 108, respirations 17, O2 sat 94% on 2 liters, blood pressure 16 6/102. GENERAL: The patient is disoriented, although can communicate with me. HEENT: Pupils react to light. Sclerae icteric. Oropharynx clear. NECK: No JVD. LUNGS: Clear without wheezing or rhonchi. CARDIAC: S1, S2 regular, without murmur. ABDOMEN: Soft, nontender. EXTREMITIES: She has wraps over the both lower legs. LABORATORY DATA AND IMAGING: White blood cell count 9.3, hematocrit 32.2, platelet count 395. A pH 7.41, pCO2 of 33, PO2 of 78. Sodium 130, potassium 5.2, chloride 106, CO2 of 22, BUN 49, creatinine 0.9, glucose 88. A chest x-ray showed cardiomegaly without infiltrate. Brain CT demonstrated no acu te abnormality. ASSESSMENT: 1. Delirium. This is acute and probably precipitated by narcotics and maybe benzodiazepines. 2. Lower extremity cellulitis/stasis changes. RECOMMENDATIONS: I have stopped her Claritin, Pepcid, tramadol, and fentanyl that were on Apr. I wi ll go ahead and give her some Geodon. We need to minimize any mind altering medications and the deli rium should pass with time. The above encompassed 70 minutes time. Of that time, greater than 50% was spent with the patient and /or on the patient's units in the hospital.
[2017-09-10] MEDS: cefTRIAXone\\ROCEPHIN 1 GM, Admixture Fee 1 EACH in Sodium Chloride 0.9% 100 ML IVPB SCH (18:26)
[2017-09-10] MEDS ORDERED: Insulin Glargine 35 UNITS in Pre-Filled Syringe 1 EACH SC SCH (21:00)
[2017-09-10] MEDS: Metoprolol Tartrate 5 MG/5 ML VIAL IVP PRN (21:43)
[2017-09-11] MEDS: Metoprolol Tartrate 5 MG/5 ML VIAL IVP PRN (01:20)
[2017-09-11] MEDS: Diltiazem HCl 125 MG, Admixture Fee 1 EACH in Sodium Chloride 0.9% 100 ML IVPB SCH ×2 (02:02→18:33)
[2017-09-11 04:08] LABS: #Eosinphils 0.1 thou/uL (0.0-0.7); #Lymphocytes 0.8 thou/uL (1.20-3.40); #Monocytes 1.1 thou/uL (0.11-0.59); #Neutrophils 8.5 thou/uL (1.40-6.50); %Basophils 0.1 % (0.0-1.0); %Eosinophils 0.7 % (0.0-10.0); %Lymphocytes 7.2 % (21.0-51.0); %Monocytes 10.8 % (0.0-10.0); %Neutrophils 81.2 % (42.0-75.0); Hemoglobin 9.2 g/dL (12.0-16.0); Mean Corpuscular Volume 83.3 fL (78.0-98.0); Mean Platelet Volume 6.4 fL (7.4-10.4); Platelet Count 382 thou/uL (130-400); RBC Distribution Width 18.1 % (11.5-14.5); Red Blood Cell (RBC) Count 3.69 mill/uL (4.20-5.40); White Blood Cell (WBC) Count 10.4 thou/uL (4.8-10.8)
[2017-09-11 04:22] LABS: Anion Gap 18 mmol/L (10-20); BUN (Urea Nitrogen) 39 mg/dL (9.8-20.1); Calc. Creatinine Clearance 139 mL/min (70-130); Calcium 9.9 mg/dL (7.8-10.44); Carbon Dioxide 20 mmol/L (23-31); Chloride 109 mmol/L (98-107); Estimated GFR-MDRD 71; Glucose 126 mg/dL (83-110); Potassium 4.6 mmol/L (3.5-5.1); Sodium 142 mmol/L (136-145)
[2017-09-11] MEDS ORDERED: Insulin Glargine 35 UNITS in Pre-Filled Syringe 1 EACH SC SCH (09:00)
[2017-09-11] MEDS: Ziprasidone 20 MG VIAL IM PRN (09:09)
[2017-09-11] MEDS: Apixaban 5 MG TAB PO SCH (09:20)
[2017-09-11] MEDS: Doxycycline 100 MG CAP PO SCH (09:20)
[2017-09-11] MEDS: Metoprolol Tartrate 50 MG TAB PO SCH (09:20)
[2017-09-11] MEDS: Aspirin 81 mg Enteric Coated Tablet PO SCH (09:20)
[2017-09-11] MEDS: Torsemide 20 MG TAB PO SCH ×2 (09:21→14:25)
[2017-09-11] MEDS: Saccharomyces boulardii 250 MG CAP PO SCH (09:21)
[2017-09-11] MEDS: Nystatin Powder 15 GM BOT TOP SCH ×2 (09:21→20:01)
[2017-09-11] MEDS: Senokot S 8.6-50 MG TAB PO SCH ×2 (09:21→20:01)
--- NOTE | 2017-09-11 10:09 | PRG ---
DATE OF SERVICE: 09/11/2017 Ms. Cleary is floridly psychotic today. She is screaming out in the room. Really does not make any sen se. PHYSICAL EXAMINATION: VITAL SIGNS: Temperature 97.4, pulse 130, respirations 22, O2 sat 93% on 2 liters, blood pressure 16 1/91. HEENT: Unremarkable. NECK: No JVD. LUNGS: Clear without wheezing or rhonchi. CARDIAC: S1, S2 regular. ABDOMEN: Soft. EXTREMITIES: She has wraps on her legs bilaterally. LABORATORY DATA: White blood cell count 10.4, hematocrit 30.7, platelet count 382. Sodium 142, pota ssium 4.6, chloride 109, CO2 20, BUN 39, creatinine 0.8, glucose 126. ASSESSMENT: 1. Delirium/psychosis. 2. Lower extremity cellulitis. PLAN: All of her medications that could be causing psychosis have been stopped. The working theory is that the situation was made worse by receiving tramadol and Ativan. I will put her on some IM Walt dol as needed to see if that will have any effect. I spoke with her at the bedside. For brendan guan she needs to remain in IMCU because of the level of care involved.
[2017-09-11 12:48] LABS: INR-International Normal Ratio 1.6; PTT 38.7 SEC (22.9-36.1)
[2017-09-11] MEDS: Haloperidol Lactate 5 MG/ML VIAL IM PRN (15:05)
--- NOTE | 2017-09-11 17:22 | SPC ---
ULTRASOUND GUIDED RIGHT UPPER EXTREMITY PICC PLACEMENT WITH FLUOROSCOPIC GUIDANCE: Date: 09/11/17 COMPARISON: None. HISTORY: Encephalopathy, in need of IV antibiotics and IV access. FINDINGS: Informed consent was obtained from the patient's prior to the procedure. The right antecubital fossa is prepped and draped in the normal sterile fashion and anesthetized with 1% buffered lidocaine overlying the right basilic vein. With direct sonographic guidance, a vascular access needle was advanced into the right basilic vein, and a .018 wire was advanced to the IVC, sub sequently retracted to the cavoatrial junction. The needle was removed and replaced with a peel-away sheath. Intravascular length calculated at 42 cm and PICC cut according. The PICC is advanced over th e wire. The wire and peel-away sheath removed. The tip of the catheter overlies the cavoatrial juncti on. Both ports flush well and the catheter is ready for use. EXPOSURE DATA: 0.8 minutes of fluoroscopic time, 2266 mGy*cm^2. IMPRESSION: Successful ultrasound guided right upper extremity PICC placement with sonographic and fluoroscopic g uidance as detailed above. POS: [facility]
[2017-09-11] MEDS: cefTRIAXone\\ROCEPHIN 1 GM, Admixture Fee 1 EACH in Sodium Chloride 0.9% 100 ML IVPB SCH (17:24)
[2017-09-11] MEDS ORDERED: Heparin 10,000 UNITS/ 10 ML VIAL SLOW IVP SCH (19:00)
[2017-09-11] MEDS ORDERED: Sodium Chloride 0.9% 1,000 ML IV SCH (19:00)
--- NOTE | 2017-09-11 19:06 | PDOC.PN ---
- Subjective Encounter Start Date: 09/11/17 Encounter Start Time: 18:30 Patient seen and examined for Cellulitis/Encephalopathy. Patient is confused/ agitated. Has not slept in last 48 hr. Events noted. Started on Cardizem drip. - Objective Resuscitation Status: Resuscitation Status FULL:Full Resuscitation Vital Signs & Weight: Vital Signs (12 hours) Temp Pulse Resp BP Pulse Ox 09/11/17 15:17 97.6 F 108 H 24 H 177/93 H 94 L 09/11/17 11:03 99.4 F 123 H 23 H 167/65 H 96 09/11/17 08:11 97.4 F L 131 H 22 H 93 L 09/11/17 07:51 97.4 F L 131 H 22 H 161/91 H 93 L 09/11/17 07:43 95 Weight Admit Weight 311 lb Weight 294 lb 4.8 oz Most Recent Monitor Data Heart Rate from ECG 110 NIBP 141/77 NIBP BP-Mean 105 Respiration from ECG 20 SpO2 83 I&O: 09/10/17 09/11/17 09/12/17 06:59 06:59 06:59 Intake Total 980 350 200 Output Total 2750 1700 650 Balance -1710 -4160 -450 Result Diagrams: 09/11/17 03:47 09/11/17 03:47 Additional Labs: Accuchecks 09/11/17 09/11/17 09/11/17 18:16 15:05 10:15 POC Glucose 210 H 198 H 160 H 09/11/17 09/11/17 09/11/17 08:40 05:58 04:35 POC Glucose 136 H 130 H 124 H 09/11/17 09/10/17 09/10/17 00:05 22:15 20:08 POC Glucose 115 H 112 H 100 EKG Reviewed by me: Yes (Tele Afib with RVR) Phys Exam - Physical Examination Confused/Agitated - not following commands Respiratory: no wheezing, no rhonchi Cardiovascular: no rub, irregular Gastrointestinal: soft, positive bowel sounds Musculoskeletal: edema present Dressing + Neuro/Psych - no change, not following commands Dx/Plan - Plan plan discussed w/ family IMPRESSION: 1. Sepsis secondary to extensive bilateral lower extremity cellulitis with ulceration and drainage ? bacteremia, WBC improving, Afebrile 2. Atrial fibrillation with RVR - on Cardizem drip 3. Toxic Metabolic Encephalopathy - multifactorial 4. Diabetes mellitus type 2. 5. Chronic kidney disease stage 3 with Hyperkalemia - improving, Losartan on hold 6. Hypertension 7. Dyslipidemia/Mild intermittent asthma/Mild hyponatremia./Metabolic acidosis/ Bilateral lower extremity pain/Degenerative joint disease/GERD/Chronic lymphedema in bilateral lower extremities with venous hypertension and ulceration/ Morbid obesity BMI 49. PLAN: Start Heparin drip since patient is refusing oral meds including Eliquis Cont Cardizem drip Consult Cardiology in AM (Patient follows [facility] in [place]) Cont IV Ceftriaxone AM labs Change sliding scale to mild Hold Lantus Cont other meds as below Cont Wound care Cont Neurochecks On Haldol PRN PICC line due to poor IV access Review of Systems - Review of Systems Other: Cannot obtain due to current cognition - Medications/Allergies Allergies/Adverse Reactions: Allergies Allergy/AdvReac Type Severity Reaction Status Date / Time No Known Allergies Allergy Unverified 09/07/17 17:38 Medications: Current Medications Acetaminophen (Tylenol) 650 mg PO Q4H PRN PRN Reason: Headache/Fever or Pain Al Hydroxide/Mg Hydroxide (Maalox) 30 ml PO Q6H PRN PRN Reason: Heartburn or Indigestion Albuterol/Ipratropium (Duoneb) 3 ml NEB [id number] PRN PRN Reason: SOB &/or Wheezing Apixaban (Eliquis) 5 mg PO BID [facility] Last Admin: 09/11/17 09:20 Dose: Not Given Aspirin (Ecotrin) 81 mg PO DAILY [facility] Last Admin: 09/11/17 09:20 Dose: Not Given Calcium Carbonate (Tums) 1,000 mg PO Q4H PRN PRN Reason: Heartburn or Indigestion Dextrose/Water (Dextrose 50%) 25 gm SLOW IVP PRN PRN PRN Reason: Hypoglycemia Diltiazem HCl (Cardizem) 30 mg PO Q6HR PRN PRN Reason: HR >120 sustained Glucagon (Glucagon) 1 mg IM PRN PRN PRN Reason: Hypoglycemia Haloperidol Lactate (Haldol) 5 mg IM Q4H PRN PRN Reason: Agitation Last Admin: 09/11/17 15:05 Dose: 5 mg Heparin Sodium (Porcine) (Heparin 1,000 Units/Ml (10 Ml)) 0 units SLOW IVP [facility] PRN Reason: Protocol Dextrose/Water (D5w) 1,000 mls @ 0 mls/hr IV .Q0M PRN; As Directed PRN Reason: Hypoglycemia Ceftriaxone Sodium 1 gm/Miscellaneous Medication 1 each/ Sodium Chloride 100 mls @ 200 mls/hr IVPB 1700 [facility] Last Admin: 09/11/17 17:24 Dose: 100 mls Diltiazem HCl 125 mg/Miscellaneous Medication 1 each/ Sodium Chloride 125 mls @ 5 mls/hr IVPB INF [facility]; As Directed PRN Reason: Protocol Last Admin: 09/11/17 18:33 Dose: 125 mls Heparin Sodium/Dextrose (Heparin 25,000 Units/D5w 500 Ml) 500 mls @ 0 mls/hr IVPB [facility]F [facility]; Per Protocol PRN Reason: Protocol Sodium Chloride (Normal Saline 0.9%) 1,000 mls @ 50 mls/hr IV .Q20H [facility] Insulin Human Regular (Humulin R) 0 units SC .BEDTIME SLIDING SC PRN PRN Reason: Bedtime Correctional Scale Insulin Human Regular (Humulin R) 0 units SC .MILD SLIDING SCALE PRN PRN Reason: Mild Correctional Scale Labetalol HCl (Normodyne) 10 mg SLOW IVP Q4H PRN PRN Reason: Systolic BP > 180 Magnesium Hydroxide (Milk Of Magnesium) 30 ml PO DAILYPRN PRN PRN Reason: Constipation Last Admin: 09/08/17 14:00 Dose: 30 ml Metoprolol Tartrate (Lopressor) 75 mg PO BID [facility] Last Admin: 09/11/17 09:20 Dose: Not Given Metoprolol Tartrate (Lopressor) 5 mg IVP Q4H PRN PRN Reason: HR >120 Last Admin: 09/11/17 01:20 Dose: 5 mg Nystatin (Mycostatin Powder) 0 gm TOP BID [facility] Last Admin: 09/11/17 09:21 Dose: Not Given Ondansetron HCl (Zofran Odt) 4 mg PO Q6H PRN PRN Reason: Nausea/Vomiting Ondansetron HCl (Zofran) 4 mg IVP Q6H PRN PRN Reason: Nausea/Vomiting Saccharomyces Boulardii (Florastor) 250 mg PO DAILY [facility] Last Admin: 09/11/17 09:21 Dose: Not Given Senna (Senokot) 2 tab PO HSPRN PRN PRN Reason: Constipation Senna/Docusate Sodium (Senokot S) 1 tab PO BID [facility] Last Admin: 09/11/17 09:21 Dose: Not Given Sodium Chloride (Flush - Normal Saline) 10 ml IVF Q12HR [facility] Last Admin: 09/11/17 09:21 Dose: Not Given Sodium Chloride (Flush - Normal Saline) 10 ml IVF PRN PRN PRN Reason: Saline Flush Last Admin: 09/09/17 17:26 Dose: 10 ml Torsemide (Demadex) 20 mg PO BID@0900,1400 [facility] Last Admin: 09/11/17 14:25 Dose: Not Given Valsartan (Diovan) 80 mg PO DAILY [facility] Last Admin: 09/08/17 08:25 Dose: 80 mg
[2017-09-11] MEDS: Heparin 25,000 units/D5W 500 ML IVPB SCH (19:43)
[2017-09-11] MEDS ORDERED: Heparin 1,000 UNITS/ML VIAL ONE (21:13)
--- NOTE | 2017-09-12 02:16 | CON ---
DATE OF CONSULTATION: 09/11/2017 REFERRING PROVIDER: Dr. Bernard Buitrago. REASON FOR CONSULTATION: Altered mental status. HISTORY OF PRESENT ILLNESS: Ms. Cleary is a pleasant 71-year-old female, who has been consult ed for evaluation of altered mental status. History is very limited as patient is unable to provide and there are no family member present at bedside, thus most of the history is obtained from patient' s medical chart. Apparently, the patient had presented on 09/07/2017 with bilateral lower extremity swelling, erythema and pain. She was noted to have bilateral lower extremity cellulitis with ulcerat ion and drainage. She was started on IV antibiotics for sepsis and cellulitis. She is noted to be e xtremely confused, disoriented and combative for which I am being asked to further evaluate. Nurse a ssisting of the patient reported that patient has been extremely agitated and combative. She require d to be placed on 2-point restraint. She is not following any commands. She moves all 4 extremities spontaneously and there is no focal weakness noted on the exam. PAST MEDICAL HISTORY: Could not be performed PAST SURGICAL HISTORY: Could not be performed SOCIAL HISTORY: Could not be performed FAMILY HISTORY: Could not be performed CURRENT MEDICATIONS: Could not be performed ALLERGIES: Could not be performed REVIEW OF SYSTEMS: Could not be performed. PHYSICAL EXAMINATION: VITAL SIGNS: Blood pressure of 177/93, pulse of 108, temperature of 97.6, respirations of 24, O2 sat s of 94% on 2 liter nasal cannula. GENERAL: Morbidly obese female, in no apparent distress. RESPIRATORY: Clear to auscultation bilaterally. CARDIOVASCULAR: Regular rate and rhythm. NEUROLOGIC: Mental status: The patient is awake, but disoriented and confused, not following any co mmands. Speech and language: She does not follow any commands. Her speech content appeared normal. Cranial nerves: Pupils are 3 mm and reactive. She blinks to threat on both sides. Face appears s ymmetric. Motor exam showed that she is on 2-point restraint in both upper extremities. She is spon taneously moving both upper and lower extremities. Gait and Romberg coordination could not be tested . LABORATORY DATA: Labs are reviewed, which included CBC, BMP, which is significant for hemoglobin 9.2 , hematocrit of 30.7, otherwise unremarkable. IMAGING STUDIES: CT head without contrast was reviewed, which showed no acute intracranial abnormali ty. IMPRESSION: 1. Altered mental status, likely toxic metabolic encephalopathy. 2. Sepsis. 3. Bilateral lower extremity cellulitis. ASSESSMENT AND PLAN: Ms. Cleary is a 71-year-old female, who presented with bilateral lower e xtremity cellulitis. She is noted to have increased confusion. This is likely toxic metabolic encep halopathy. At this time, I would recommend obtaining ammonia level. I will recommend continuing IV antibiotics for treatment of cellulitis. Continue supportive care. Continue current medical managem ent. Thank you for consultation.
[2017-09-12] MEDS: Insulin Regular 300 UNITS/3 ML VIAL SC PRN ×5 (02:27→21:11)
[2017-09-12 02:28] LABS: Hemoglobin 9.2 g/dL (12.0-16.0); Platelet Count 347 thou/uL (130-400)
[2017-09-12 05:08] LABS: Anion Gap 14 mmol/L (10-20); BUN (Urea Nitrogen) 38 mg/dL (9.8-20.1); Calc. Creatinine Clearance 122 mL/min (70-130); Carbon Dioxide 24 mmol/L (23-31); Chloride 111 mmol/L (98-107); Estimated GFR-MDRD 64; Glucose 238 mg/dL (83-110); Magnesium 2.2 mg/dL (1.6-2.6); Phosphorus 3.5 mg/dL (2.3-4.7); Potassium 4.4 mmol/L (3.5-5.1); Sodium 145 mmol/L (136-145)
--- NOTE | 2017-09-12 09:15 | PRG ---
DATE OF SERVICE: 09/12/2017 SERVICE: Pulmonary Medicine INTERVAL HISTORY: The patient is doing okay from a respiratory standpoint. She is breathing comfort ably. She has been screaming for most of the last 48 hours. That being said, she was able to get a little bit of rest last night. She cannot provide any additional elements of the history. PHYSICAL EXAMINATION: VITAL SIGNS: Afebrile, pulse 129, blood pressure 188/87, respirations 19, saturation 99% on 2 liters nasal cannula. GENERAL: The patient is awake, alert, in no apparent distress. LUNGS: Decent air entry. No crackles or wheezing are present. HEART: There is a systolic murmur. It is tachycardic and irregular. ABDOMEN: Soft, nontender, nondistended. Bowel sounds are positive. MUSCULOSKELETAL: No cyanosis or clubbing. No pitting in the bilateral lower extremities. NEUROLOGIC: Grossly nonfocal. LABORATORY DATA: Hemoglobin 9.2, INR 1.6. PH 7.41, pCO2 34, pO2 78. Basic metabolic profile, magne sium and phosphorus all fall within the normal limits. TSH is normal. Sodium 145 and up trending, c hloride 111 and up trending. Blood cultures x2 are negative. ASSESSMENT: 1. Cellulitis of the lower extremity. 2. Delirium, agitated. 3. Severe sepsis. 4. Atrial fibrillation with rapid ventricular response. PLAN: We will work on rate control throughout the day. She is getting a little hypernatremic and hy perchloremic. As such, we will get rid of our salt containing fluid. We will work on mobilizing the patient to the best of our ability. We will get her into a neuro chair once or twice a day. We regine l try to minimize any of our interventions on the patient. Hopefully, in 24-48 hours, her mentation will continue to clear. Obviously, we will avoid benzodiazepines, or narcotics. She will need to re main in the [facility] for the time being.
[2017-09-12] MEDS: Aspirin 81 mg Enteric Coated Tablet PO SCH (10:07)
[2017-09-12] MEDS: Nystatin Powder 15 GM BOT TOP SCH ×2 (10:08→21:10)
[2017-09-12] MEDS: Saccharomyces boulardii 250 MG CAP PO SCH (10:08)
[2017-09-12] MEDS: Senokot S 8.6-50 MG TAB PO SCH ×2 (10:09→21:10)
[2017-09-12] MEDS: Haloperidol Lactate 5 MG/ML VIAL IM PRN ×3 (10:44→21:16)
[2017-09-12] MEDS: Dextrose 5% in Water 1,000 ML IV SCH ×2 (10:44→22:13)
[2017-09-12] MEDS: Diltiazem HCl 125 MG, Admixture Fee 1 EACH in Sodium Chloride 0.9% 100 ML IVPB SCH (10:44)
[2017-09-12] MEDS: Labetalol HCl 100 MG/20 ML VIAL SLOW IVP PRN ×2 (10:53→21:12)
[2017-09-12] MEDS: Digoxin 0.5 MG/2 ML AMP SLOW IVP SCH (11:51)
--- NOTE | 2017-09-12 12:54 | CON ---
DATE OF CONSULTATION: 09/12/2017 CARDIOLOGY CONSULTATION INDICATION FOR CONSULTATION: The patient has chronic atrial fibrillation, status post pacemaker inse rtion. Also has a history of hypertension and diabetes. We were asked to see her due to the atrial fibrillation with rapid ventricular response. HISTORY OF PRESENT ILLNESS: This very unfortunate 71-year-old female was seen by me only once in the office back in January. She did not return for followup. She was to return 1 month later, but did not return for followup and has not been seen since that time since 02/10/2017. Please refer to the note, which I have placed into the chart. She has a history of chronic atrial fibrillation. She un derwent pacemaker insertion many years ago, was followed in [place]. She has had the pacemaker inter rogated. She actually had a change out of the pacemaker also in the past. The atrial fibrillation h as been present since 2016 and she has had tachycardia associated with the heart rate. In the office , her heart rate was in the 120s. She really had the pacemaker insertion in 2005 due to symptomatic bradycardia and syncope. She was tried on Multaq and there was some discussion about cardioversion i [facility]. However, the patient was unable to tolerate the Multaq and has been in atrial fibrillatio n and then there was no further discussion about whether or not to cardiovert her since she apparentl y was unable to take the medication to maintain the sinus rhythm even if she was able to be cardiover katrin. At the time she was seen, she had her last stress test about 2 years previous to being seen in the office and she had had an echocardiogram about 3 weeks earlier, at least this is according to the records and to the patient and what the patient had informed me of. We attempted to obtain her odalys rds from [place] for the stress test as well as the echo results, but we were unable to obtain these records. It is possible that her primary care physician, Dr. Guerrero may have them and we will try to contact his office to see whether or not we can get the records from his office. At this time, she w as admitted to the hospital due to lower extremity edema and cellulitis. She since that time has bec ome very confused, appears to be septic. She is in the Intensive Care Unit, very confused. She has been apparently for the last couple of days having psychosis, has been yelling and screaming, but yet her blood cultures have remained negative. She also has a history of chronic shortness of breath, do not know of any history of coronary artery disease per se. She did have some bilateral lower extremity greater saphenous vein ablations done in the past, but then reportedly the edema in the legs had not improved. She also reported having prev ious ulcers after spinal surgery and has been seen routinely by Wound Care and apparently these ulcer ations have not healed. She also has a history of diabetes and has been present for about 15 years a s well as morbid obesity, asthma and she pretty much was sedentary, wheelchair bound ever since her b ack surgery. At the time she was in the office, she did not complain of any chest discomfort that wo uld indicate ischemia, but mainly the edema and the shortness of breath. PAST MEDICAL HISTORY: Significant for hypertension, diabetes, chronic atrial fibrillation, gastroeso phageal reflux disease, COPD in the form of asthma and osteoarthritis. She has had a total hysterect lindsay, cholecystectomy, pacemaker insertion, left total knee replacement, bilateral lower extremity delphine ous ablations and history also of DVTs. ALLERGIES: None. MEDICATIONS: Prior to admission included Combivent inhaler, Eliquis 5 mg b.i.d., Voltaren topical ge l, furosemide 80 mg b.i.d., loratadine 10 mg daily, methocarbamol 750 mg 1 tablet every 4 hours, Braulio tus insulin, Humalog insulin, metformin 500 mg b.i.d., Lovaza 1 g capsule every morning with meals. She was taking 2 capsules of these twice a day. Xopenex inhaler, aspirin 325 mg a half a tablet a , Coreg 25 mg b.i.d. with food, Singulair 10 mg daily, valsartan 320 mg a day, Breo Ellipta in powde r solution for inhalation, gabapentin 300 mg t.i.d., folic acid 1 mg a day and ferrous sulfate 1 tabl et a day, 325 mg tablets and also the magnesium oxide was in this tablet. REVIEW OF SYSTEMS: Unobtainable. FAMILY HISTORY: Father had heart disease. Mother had colon cancer and also heart disease. SOCIAL HISTORY: There is no history of alcohol or tobacco abuse. She did drink a couple of cups of coffee a day. She has a very sedentary lifestyle. PHYSICAL EXAMINATION: GENERAL: Reveals an elderly, morbidly obese female who obviously is confused. She will awaken durin g the examination, but then is not actually responsive otherwise. She does not answer questions. Sh e does not follow commands. She does yell and scream occasionally, but there is no particular indica tion of why she is doing this. VITAL SIGNS: Her blood pressure is 188/87, heart rate was anywhere between 105 and 129 with chronic atrial fibrillation, respiratory rate is 22. She is afebrile. HEENT: Shows the head to be normocephalic, atraumatic. Carotid pulses are present. I did not hear any significant bruits at this time. CHEST: Actually clear to auscultation without any rales, rhonchi or wheezing. CARDIOVASCULAR: Reveals an irregular rhythm. There are no particular S1 or S2. There were no gross murmurs that I could appreciate. There were no heaves or thrills. Heart sounds are somewhat distan t. ABDOMEN: Shows morbid obesity. Cannot elicit any tenderness. Positive bowel sounds are present. S he has well-healed surgical incisions. SKIN: She has venous stasis ulcers present. These are wrapped in surgical dressings with drainage s till present. She has 2+ lower extremity edema. NEUROLOGIC: The patient is thought to be very confused, appears to be somewhat psychotic. She has b een given medications in the form of Haldol and see if this will improve some, but otherwise is remai elvie still very confused and unable to participate with following commands or answering questions. IMPRESSION: 1. Chronic atrial fibrillation. She is status post pacemaker insertion in 2005 due to tachybrady sy ndrome, likely syncope with bradycardia. She has had atrial fibrillation at least since 02/2016. Th is has been chronic. She was unable to tolerate the medications. She has been placed on Eliquis. T he rate is slightly elevated at this time. We will need to continue some form of beta blockers. She had been on Coreg in the past. At this time, she has been given IV labetalol. We could actually ad d digoxin to her regimen in order to slow the heart rate down. 2. History of coronary artery disease, uncertain as to which vessels have been stented. This was pe rformed sometime between 1989 and 1999, uncertain of which vessel it was. Apparently, she has had a recent stress test a couple of years ago and reportedly it was within normal limits. She did have al so some echocardiogram and workups in the past, but we did not get those records. In the past day, a ctually there had been some discussion about Watchman implantation due to the chronic atrial fibrilla tion and the need for anticoagulation. However, the patient has not returned for further follow up s january. 3. History of pacemaker insertion. On last interrogation, the device was still functioning normally . She had a change out in 2014. 4. Hypertension. Blood pressure is elevated today. It would be better if we could at least start h er on perhaps diltiazem or continue IV beta blockers for heart rate and blood pressure control. 5. Hyperlipidemia. When she is more stable, we can resume her medications. 6. Chronic venous insufficiency and stasis ulcers. She may have obstruction of the venous system hi gher up, but she apparently did not get any improvement after undergoing ablation of the greater saph enous veins previously. 7. History of coronary artery disease, which appears to be stable. 8. Morbid obesity. The patient is sedentary and wheelchair bound since her back surgery. 9. Type 2 diabetes. This is being dealt with by the primary care service. 10. Cellulitis of lower extremities with possible sepsis; however, the blood cultures remain negativ e. We will be more than happy to continue to follow the patient with you and I will try to readjust her medications in order to better control the heart rate as well as the blood pressure.
[2017-09-12] MEDS: Heparin 25,000 units/D5W 500 ML IVPB SCH (17:14)
[2017-09-12] MEDS: cefTRIAXone\\ROCEPHIN 1 GM, Admixture Fee 1 EACH in Sodium Chloride 0.9% 100 ML IVPB SCH (17:52)
--- NOTE | 2017-09-12 20:46 | PDOC.PN ---
- Subjective Encounter Start Date: 09/12/17 Encounter Start Time: 15:00 Patient seen and examined for sepsis/encephalopathy/afib with rvr. Events noted. Remains confused. - Objective Resuscitation Status: Resuscitation Status FULL:Full Resuscitation MAR Reviewed: Yes Vital Signs & Weight: Vital Signs (12 hours) Temp Pulse Resp BP BP Pulse Ox 09/12/17 20:00 98.2 F 111 H 14 187/83 H 97 09/12/17 15:28 98.2 F 113 H 24 H 184/85 H 94 L 09/12/17 11:51 114 H 09/12/17 10:54 98.8 F 114 H 23 H 193/76 H 100 09/12/17 10:53 165 H 193/76 H Weight Admit Weight 311 lb Weight 287 lb 5 oz Most Recent Monitor Data Heart Rate from ECG 110 NIBP 141/77 NIBP BP-Mean 105 Respiration from ECG 20 SpO2 83 I&O: 09/11/17 09/12/17 09/13/17 06:59 06:59 06:59 Intake Total 350 1085 980 Output Total 1700 1100 Balance -1350 -15 980 Result Diagrams: 09/12/17 02:17 09/12/17 04:43 Additional Labs: Accuchecks 09/12/17 09/12/17 09/12/17 15:15 12:16 10:26 POC Glucose 253 H 256 H 229 H 09/12/17 09/12/17 09/12/17 08:07 05:50 02:10 POC Glucose 239 H 220 H 222 H 09/11/17 09/11/17 22:12 20:43 POC Glucose 221 H 205 H EKG Reviewed by me: Yes (Tele Afib with RVR) Phys Exam - Physical Examination Confused, Does not follow commands Respiratory: no wheezing, no rhonchi Scat rales at bases Cardiovascular: no rub, irregular Gastrointestinal: soft, positive bowel sounds Neurological: moves all 4 limbs Dx/Plan - Plan DVT proph w/heparin, DVT proph w/SCDs IMPRESSION: 1. Sepsis secondary to extensive BLE cellulitis with ulceration and drainage ? bacteremia, 2. Atrial fibrillation with RVR - on Cardizem and Heparin drip 3. Toxic Metabolic Encephalopathy 4. Diabetes mellitus type 2. on sliding scale 5. Chronic kidney disease stage 3 with Hyperkalemia - improving, Losartan on hold 6. Hypertension 7. Dyslipidemia/Mild intermittent asthma/Mild hyponatremia./Metabolic acidosis/ Bilateral lower extremity pain/Degenerative joint disease/GERD/Chronic lymphedema in bilateral lower extremities with venous hypertension and ulceration/ Morbid obesity BMI 49. PLAN: Cont Heparin/Cardizem drip Cont Atbx Cardiology and Pulmonary following Cont IV Ceftriaxone AM labs Cont other meds as below Cont Wound care Cont Neurochecks On Haldol PRN Review of Systems - Review of Systems Other: Cannot obtain due to current mentation. - Medications/Allergies Allergies/Adverse Reactions: Allergies Allergy/AdvReac Type Severity Reaction Status Date / Time No Known Allergies Allergy Unverified 09/07/17 17:38 Medications: Current Medications Acetaminophen (Tylenol) 650 mg PO Q4H PRN PRN Reason: Headache/Fever or Pain Al Hydroxide/Mg Hydroxide (Maalox) 30 ml PO Q6H PRN PRN Reason: Heartburn or Indigestion Albuterol/Ipratropium (Duoneb) 3 ml NEB [id number] PRN PRN Reason: SOB &/or Wheezing Apixaban (Eliquis) 5 mg PO BID [facility] Last Admin: 09/11/17 09:20 Dose: Not Given Aspirin (Ecotrin) 81 mg PO DAILY [facility] Last Admin: 09/12/17 10:07 Dose: Not Given Calcium Carbonate (Tums) 1,000 mg PO Q4H PRN PRN Reason: Heartburn or Indigestion Dextrose/Water (Dextrose 50%) 25 gm SLOW IVP PRN PRN PRN Reason: Hypoglycemia Digoxin (Lanoxin) 0.25 mg SLOW IVP 1200 [facility] Last Admin: 09/12/17 11:51 Dose: 0.25 mg Diltiazem HCl (Cardizem) 30 mg PO Q6HR PRN PRN Reason: HR >120 sustained Glucagon (Glucagon) 1 mg IM PRN PRN PRN Reason: Hypoglycemia Haloperidol Lactate (Haldol) 5 mg IM Q4H PRN PRN Reason: Agitation Last Admin: 09/12/17 14:21 Dose: 5 mg Heparin Sodium (Porcine) (Heparin 1,000 Units/Ml (10 Ml)) 0 units SLOW IVP ASDIR [facility] PRN Reason: Protocol Dextrose/Water (D5w) 1,000 mls @ 0 mls/hr IV .Q0M PRN; As Directed PRN Reason: Hypoglycemia Ceftriaxone Sodium 1 gm/Miscellaneous Medication 1 each/ Sodium Chloride 100 mls @ 200 mls/hr IVPB 1700 [facility] Last Admin: 09/12/17 17:52 Dose: 100 mls Diltiazem HCl 125 mg/Miscellaneous Medication 1 each/ Sodium Chloride 125 mls @ 5 mls/hr IVPB INF [facility]; As Directed PRN Reason: Protocol Last Admin: 09/12/17 10:44 Dose: 125 mls Heparin Sodium/Dextrose (Heparin 25,000 Units/D5w 500 Ml) 500 mls @ 0 mls/hr IVPB INF [facility]; Per Protocol PRN Reason: Protocol Last Admin: 09/12/17 17:14 Dose: 500 mls Dextrose/Water (D5w) 1,000 mls @ 75 mls/hr IV .[id number] [facility] Last Admin: 09/12/17 10:44 Dose: 1,000 mls Insulin Human Regular (Humulin R) 0 units SC .BEDTIME SLIDING SC PRN PRN Reason: Bedtime Correctional Scale Last Admin: 09/12/17 02:27 Dose: 2 unit Insulin Human Regular (Humulin R) 0 units SC .MILD SLIDING SCALE PRN PRN Reason: Mild Correctional Scale Last Admin: 09/12/17 15:58 Dose: 4 unit Labetalol HCl (Normodyne) 10 mg SLOW IVP Q4H PRN PRN Reason: Systolic BP > 180 Last Admin: 09/12/17 10:53 Dose: 10 mg Magnesium Hydroxide (Milk Of Magnesium) 30 ml PO DAILYPRN PRN PRN Reason: Constipation Last Admin: 09/08/17 14:00 Dose: 30 ml Metoprolol Tartrate (Lopressor) 75 mg PO BID [facility] Last Admin: 09/11/17 09:20 Dose: Not Given Metoprolol Tartrate (Lopressor) 5 mg IVP Q4H PRN PRN Reason: HR >120 Last Admin: 09/11/17 01:20 Dose: 5 mg Nystatin (Mycostatin Powder) 0 gm TOP BID [facility] Last Admin: 09/12/17 10:08 Dose: Not Given Ondansetron HCl (Zofran Odt) 4 mg PO Q6H PRN PRN Reason: Nausea/Vomiting Ondansetron HCl (Zofran) 4 mg IVP Q6H PRN PRN Reason: Nausea/Vomiting Saccharomyces Boulardii (Florastor) 250 mg PO DAILY [facility] Last Admin: 09/12/17 10:08 Dose: Not Given Senna (Senokot) 2 tab PO HSPRN PRN PRN Reason: Constipation Senna/Docusate Sodium (Senokot S) 1 tab PO BID [facility] Last Admin: 09/12/17 10:09 Dose: Not Given Sodium Chloride (Flush - Normal Saline) 10 ml IVF Q12HR [facility] Last Admin: 09/12/17 10:09 Dose: Not Given Sodium Chloride (Flush - Normal Saline) 10 ml IVF PRN PRN PRN Reason: Saline Flush Last Admin: 09/12/17 17:56 Dose: 10 ml Valsartan (Diovan) 80 mg PO DAILY [facility] Last Admin: 09/08/17 08:25 Dose: 80 mg
[2017-09-12 23:30] LABS: Vitamin B12 Greater than 2000 pg/mL (211-911)
[2017-09-13] MEDS: Insulin Regular 300 UNITS/3 ML VIAL SC PRN ×6 (00:18→21:01)
[2017-09-13 02:09] LABS: #Eosinphils 0.1 thou/uL (0.0-0.7); #Lymphocytes 0.8 thou/uL (1.20-3.40); #Monocytes 1.6 thou/uL (0.11-0.59); #Neutrophils 12.6 thou/uL (1.40-6.50); %Basophils 0.1 % (0.0-1.0); %Eosinophils 0.8 % (0.0-10.0); %Lymphocytes 5.5 % (21.0-51.0); %Monocytes 10.4 % (0.0-10.0); %Neutrophils 83.2 % (42.0-75.0); Hemoglobin 9.2 g/dL (12.0-16.0); Mean Corpuscular HGB CONC 31.4 g/dL (32.0-36.0); Mean Corpuscular Hemoglobin 26.7 pg (27.0-31.0); Mean Corpuscular Volume 85.2 fL (78.0-98.0); Mean Platelet Volume 6.6 fL (7.4-10.4); Platelet Count 355 thou/uL (130-400); RBC Distribution Width 18.5 % (11.5-14.5); Red Blood Cell (RBC) Count 3.45 mill/uL (4.20-5.40); White Blood Cell (WBC) Count 15.1 thou/uL (4.8-10.8)
[2017-09-13] MEDS: Labetalol HCl 100 MG/20 ML VIAL SLOW IVP PRN ×2 (02:17→22:11)
[2017-09-13 02:36] LABS: Anion Gap 15 mmol/L (10-20); BUN (Urea Nitrogen) 32 mg/dL (9.8-20.1); Calc. Creatinine Clearance 123 mL/min (70-130); Calcium 9.8 mg/dL (7.8-10.44); Carbon Dioxide 22 mmol/L (23-31); Chloride 112 mmol/L (98-107); Estimated GFR-MDRD 65; Glucose 309 mg/dL (83-110); Sodium 145 mmol/L (136-145)
[2017-09-13] MEDS: Diltiazem HCl 125 MG, Admixture Fee 1 EACH in Sodium Chloride 0.9% 100 ML IVPB SCH ×2 (05:10→19:26)
[2017-09-13] MEDS: Haloperidol Lactate 5 MG/ML VIAL IM PRN ×2 (06:26→16:07)
[2017-09-13] MEDS: Heparin 25,000 units/D5W 500 ML IVPB SCH (07:04)
[2017-09-13] MEDS: Metoprolol Tartrate 5 MG/5 ML VIAL IVP PRN ×2 (08:41→16:07)
[2017-09-13] MEDS: Aspirin 81 mg Enteric Coated Tablet PO SCH (09:36)
[2017-09-13] MEDS: Nystatin Powder 15 GM BOT TOP SCH ×2 (09:41→20:58)
[2017-09-13] MEDS: Senokot S 8.6-50 MG TAB PO SCH ×2 (09:41→20:53)
[2017-09-13] MEDS: Saccharomyces boulardii 250 MG CAP PO SCH (09:41)
[2017-09-13] MEDS ORDERED: Furosemide 40 MG/4 ML VIAL SLOW IVP SCH (11:30)
[2017-09-13] MEDS: Dextrose 5% in Water 1,000 ML IV SCH ×2 (11:51→12:09)
[2017-09-13] MEDS ORDERED: Heparin 10,000 UNITS/ 10 ML VIAL SLOW IVP SCH (11:57)
--- NOTE | 2017-09-13 11:58 | PRG ---
DATE OF SERVICE: 09/13/2017 SERVICE: Pulmonary Medicine. INTERVAL HISTORY: The patient is doing great from a respiratory standpoint. Mentation amaro, she is not screaming nearly as much today. She is also answering questions appropriately. She is talking w ith words. She is no longer making incomprehensible speech. Otherwise, there has been no interval c hange to her condition. OBJECTIVE: VITAL SIGNS: Afebrile, pulse 101, blood pressure 177/84, respirations 23, saturation 98% on 2 liters nasal cannula. GENERAL: The patient is awake, alert, no apparent distress. LUNGS: Excellent air entry. There is a slightly prolonged expiratory phase. No wheezing or rhonchi are appreciated. HEART: Normal rate, irregular. ABDOMEN: Soft. Nontender, nondistended. Bowel sounds are positive. MUSCULOSKELETAL: No cyanosis or clubbing. There is 1-2+ pitting throughout. GENITOURINARY: No [place]. NEUROLOGIC: Grossly nonfocal. LABORATORY DATA: Sodium 145, chloride 112. Basic metabolic profile is otherwise unremarkable. Bloo d cultures x2 are negative. ASSESSMENT: 1. Cellulitis of the lower extremity. 2. Acute hypoxic respiratory failure, stable. 3. Delirium, agitated. 4. Severe sepsis. 5. Atrial fibrillation with rapid ventricular response. PLAN: The patient's sodium and chloride are improving a little bit, but the patient remains signific antly volume overloaded. At this point, we will start to diurese her gently. I will continue my rigoberto e water to prevent her sodium from jumping up again. We will continue our mobilization efforts. Mark zodiazepines and narcotics will be avoided. She will remain in the IMCU for at least an additional 2 4 hours until her mentation started to clear a little bit more.
--- NOTE | 2017-09-13 12:04 | PDOC.CTH ---
<Lillian Gallardo - Last Filed: 09/13/17 12:15> Cardiology Progress Note - Subjective The pt seen and examined. No overnight events. She cont. to be very drowsy and responses to pain stimulation only at this time. - Objective Vital Signs Temp Pulse Resp BP Pulse Ox 09/13/17 08:00 98.3 F 101 H 23 H 98 09/13/17 07:41 98.3 F 101 H 23 H 177/84 H 98 09/13/17 06:14 109 H 24 H 168/105 H 99 09/13/17 05:10 96 22 H 170/91 H 100 09/13/17 04:28 153/82 H 09/13/17 04:00 98.8 F 110 H 28 H 187/97 H 99 09/13/17 03:16 103 H 175/96 H 09/13/17 02:17 106 H 09/13/17 02:13 106 H 180/93 H 09/13/17 01:11 102 H 172/95 H Admit Weight 311 lb Weight 294 lb 1 oz 09/12/17 09/13/17 09/14/17 06:59 06:59 06:59 Intake Total 1085 2430 Output Total 1100 1150 Balance -15 1280 - Physical Examination Lungs: other: (coarses and very diminished at bases) Heart: other: (irregular) Abdomen: soft Extremities: other: (swelling and dressing on BLE) - Telemetry Telemetry Rhythm: Afib 90-100s - Labs Result Diagrams: 09/13/17 02:01 09/13/17 02:01 - Assessment/Plan 1. Chronic Afib with RVR - HR has been upper 100-110s with Lobetalol IV PRN, diltiazem drip 7.5ml/h, Metoprolol PO and Digoxin 0.25mg IV q 1200; Increased Diltiazem drip from 7.5ml to 10ml/h; Change Heaparin drip to Lovenox 120mg subq BID since the pt cannot administer Eliquis. 2. Sepsis 2/2 BLE cellulitis with ulceration and drainage and possible bacteremia? - On Atbx; managed by PCP 3. HTN - unable to administer PO due to encephalopathy; Increase Diltiazem to 10mg/h for HR and HTN. cont. to monitor 4. DM type 2 - managed by PCP 5. CKD stage 3 - stable 6. Chronic kidney disease stage 3 with Hyperkalemia - improving, Losartan on hold 7. Chronic lymphedema in BLE - 8. PM placement in 2004 and change out in 2016 - PM interrogation showed normal function Morbid obese - MAR reviewed Review of Systems - Review of Systems Constitutional: reports: see HPI EENTM: reports: see HPI Respiratory: reports: see HPI Cardiac (ROS): reports: see HPI ABD/GI: reports: see HPI : reports: see HPI Musculoskeletal: reports: see HPI <Felecia King - Last Filed: 09/13/17 18:08> Cardiology Progress Note - Objective Vital Signs Temp Pulse Resp BP BP Pulse Ox 09/13/17 16:00 98.5 F 100 28 H 210/98 H 100 09/13/17 12:09 105 H 09/13/17 12:05 105 H 173/78 H 98 09/13/17 08:00 98.3 F 101 H 23 H 98 09/13/17 07:41 98.3 F 101 H 23 H 177/84 H 98 09/13/17 06:14 109 H 24 H 168/105 H 99 Admit Weight 311 lb 4.8 oz Weight 294 lb 1 oz 09/12/17 09/13/17 09/14/17 06:59 06:59 06:59 Intake Total 1085 2430 Output Total 1100 1150 Balance -15 1280 - Labs Result Diagrams: 09/13/17 02:01 09/13/17 02:01 - Assessment/Plan Pt. seen and eval. by me. She is more alert this PM. Answers questions. Chest : wheezing, rhonci. CV: tachycardia,irreg. Extremities: wrapped, edema. I agree with the other A/P by the [employer]. I will add Norvasc for the HTN. HR is under better control.
[2017-09-13] MEDS: Digoxin 0.5 MG/2 ML AMP SLOW IVP SCH (12:09)
[2017-09-13] MEDS ORDERED: NPH, Human Insulin Isophane 300 UNIT/3 ML VIAL SC SCH (13:30)
[2017-09-13] MEDS: cefTRIAXone\\ROCEPHIN 1 GM, Admixture Fee 1 EACH in Sodium Chloride 0.9% 100 ML IVPB SCH (16:07)
[2017-09-13] MEDS ORDERED: Amlodipine 5 MG TAB PO SCH (19:00)
[2017-09-13] MEDS: Enoxaparin Sodium 120 MG/0.8 ML SYRINGE SC SCH (20:54)
--- NOTE | 2017-09-13 21:42 | PDOC.PN ---
- Subjective Encounter Start Date: 09/13/17 Encounter Start Time: 19:20 Patient seen and examined for Sepsis/Encephalopathy. Mentation improving. No overnight events - Objective Resuscitation Status: Resuscitation Status FULL:Full Resuscitation MAR Reviewed: Yes Vital Signs & Weight: Vital Signs (12 hours) Temp Pulse Resp BP BP BP Pulse Ox 09/13/17 20:00 97.8 F 86 26 H 142/103 H 97 09/13/17 18:29 100 182/81 H 09/13/17 16:00 98.5 F 100 28 H 210/98 H 100 09/13/17 12:09 105 H 09/13/17 12:05 105 H 173/78 H 98 Weight Admit Weight 311 lb 4.8 oz Weight 294 lb 1 oz Most Recent Monitor Data Heart Rate from ECG 110 NIBP 141/77 NIBP BP-Mean 105 Respiration from ECG 20 SpO2 83 I&O: 09/12/17 09/13/17 09/14/17 06:59 06:59 06:59 Intake Total 1085 2430 1100 Output Total 1100 1150 800 Balance -15 1280 300 Result Diagrams: 09/14/17 03:43 09/14/17 03:43 Additional Labs: Accuchecks 09/13/17 09/13/17 09/13/17 20:59 17:07 12:23 POC Glucose 318 H 334 H 303 H 09/13/17 09/13/17 09/12/17 08:09 04:29 23:53 POC Glucose 356 H 316 H 288 H 09/12/17 20:58 POC Glucose 292 H EKG Reviewed by me: Yes (Tele Afib) Phys Exam - Physical Examination Constitutional: NAD Respiratory: no wheezing, no rhonchi Cardiovascular: RRR, no rub Gastrointestinal: soft, non-tender, positive bowel sounds Musculoskeletal: no edema Neurological: moves all 4 limbs Dx/Plan - Plan DVT proph w/lovenox, DVT proph w/SCDs IMPRESSION: 1. Sepsis secondary to extensive BLE cellulitis with ulceration and drainage ? bacteremia, 2. Atrial fibrillation with RVR - on Cardizem and Heparin drip 3. Toxic Metabolic Encephalopathy 4. Diabetes mellitus type 2. on sliding scale 5. Chronic kidney disease stage 3 with Hyperkalemia - improving, Losartan on hold 6. Hypertension 7. Dyslipidemia/Mild intermittent asthma/Mild hyponatremia./Metabolic acidosis/ Bilateral lower extremity pain/Degenerative joint disease/GERD/Chronic lymphedema in bilateral lower extremities with venous hypertension and ulceration/ Morbid obesity BMI 49. PLAN: Cont Cardizem drip Heparin drip changed to Lovenox per Cardiology Cont current Atbx Cardiology and Pulmonary following AM labs Cont other meds as below Cont Wound care Review of Systems - Review of Systems Other: Cannot obtain due to current mentation - Medications/Allergies Allergies/Adverse Reactions: Allergies Allergy/AdvReac Type Severity Reaction Status Date / Time No Known Allergies Allergy Unverified 09/07/17 17:38 Medications: Current Medications Acetaminophen (Tylenol) 650 mg PO Q4H PRN PRN Reason: Headache/Fever or Pain Al Hydroxide/Mg Hydroxide (Maalox) 30 ml PO Q6H PRN PRN Reason: Heartburn or Indigestion Albuterol/Ipratropium (Duoneb) 3 ml NEB [id number] PRN PRN Reason: SOB &/or Wheezing Amlodipine Besylate (Norvasc) 5 mg PO DAILY [facility] Apixaban (Eliquis) 5 mg PO BID [facility] Last Admin: 09/11/17 09:20 Dose: Not Given Aspirin (Ecotrin) 81 mg PO DAILY [facility] Last Admin: 09/13/17 09:36 Dose: Not Given Calcium Carbonate (Tums) 1,000 mg PO Q4H PRN PRN Reason: Heartburn or Indigestion Dextrose/Water (Dextrose 50%) 25 gm SLOW IVP PRN PRN PRN Reason: Hypoglycemia Digoxin (Lanoxin) 0.25 mg SLOW IVP 1200 [facility] Last Admin: 09/13/17 12:09 Dose: 0.25 mg Diltiazem HCl (Cardizem) 30 mg PO Q6HR PRN PRN Reason: HR >120 sustained Enoxaparin Sodium (Lovenox) 120 mg SC 0900,2100 [facility] Last Admin: 09/13/17 20:54 Dose: 120 mg Furosemide (Lasix) 40 mg SLOW IVP 0600 [facility] Stop: 09/15/17 06:01 Glucagon (Glucagon) 1 mg IM PRN PRN PRN Reason: Hypoglycemia Haloperidol Lactate (Haldol) 5 mg IM Q4H PRN PRN Reason: Agitation Last Admin: 09/13/17 16:07 Dose: 5 mg Heparin Sodium (Porcine) (Heparin 1,000 Units/Ml (10 Ml)) 0 units SLOW IVP ASDIR [facility] PRN Reason: Protocol Stop: 09/13/17 23:59 Dextrose/Water (D5w) 1,000 mls @ 0 mls/hr IV .Q0M PRN; As Directed PRN Reason: Hypoglycemia Ceftriaxone Sodium 1 gm/Miscellaneous Medication 1 each/ Sodium Chloride 100 mls @ 200 mls/hr IVPB 1700 [facility] Last Admin: 09/13/17 16:07 Dose: 100 mls Heparin Sodium/Dextrose (Heparin 25,000 Units/D5w 500 Ml) 500 mls @ 0 mls/hr IVPB INF [facility]; Per Protocol PRN Reason: Protocol Last Admin: 09/13/17 07:04 Dose: 500 mls Dextrose/Water (D5w) 1,000 mls @ 100 mls/hr IV .Q10H [facility] Last Admin: 09/13/17 12:09 Dose: 1,000 mls Diltiazem HCl 125 mg/Miscellaneous Medication 1 each/ Sodium Chloride 125 mls @ 10 mls/hr IVPB INF [facility] PRN Reason: Protocol Last Admin: 09/13/17 19:26 Dose: 125 mls Insulin Human Regular (Humulin R) 0 units SC .BEDTIME SLIDING SC PRN PRN Reason: Bedtime Correctional Scale Last Admin: 09/13/17 21:01 Dose: 4 unit Insulin Human Regular (Humulin R) 0 units SC .MODERATE SLIDING SC PRN PRN Reason: Moderate Correctional Scale Last Admin: 09/13/17 17:17 Dose: 8 unit Labetalol HCl (Normodyne) 10 mg SLOW IVP Q4H PRN PRN Reason: Systolic BP > 180 Last Admin: 09/13/17 02:17 Dose: 10 mg Magnesium Hydroxide (Milk Of Magnesium) 30 ml PO DAILYPRN PRN PRN Reason: Constipation Last Admin: 09/08/17 14:00 Dose: 30 ml Metoprolol Tartrate (Lopressor) 75 mg PO BID [facility] Last Admin: 09/11/17 09:20 Dose: Not Given Metoprolol Tartrate (Lopressor) 5 mg IVP Q4H PRN PRN Reason: HR >120 Last Admin: 09/13/17 16:07 Dose: 5 mg Nystatin (Mycostatin Powder) 0 gm TOP BID [facility] Last Admin: 09/13/17 20:58 Dose: 1 applic Ondansetron HCl (Zofran Odt) 4 mg PO Q6H PRN PRN Reason: Nausea/Vomiting Ondansetron HCl (Zofran) 4 mg IVP Q6H PRN PRN Reason: Nausea/Vomiting Saccharomyces Boulardii (Florastor) 250 mg PO DAILY [facility] Last Admin: 09/13/17 09:41 Dose: Not Given Senna (Senokot) 2 tab PO HSPRN PRN PRN Reason: Constipation Senna/Docusate Sodium (Senokot S) 1 tab PO BID [facility] Last Admin: 09/13/17 20:53 Dose: Not Given Sodium Chloride (Flush - Normal Saline) 10 ml IVF Q12HR [facility] Last Admin: 09/13/17 20:54 Dose: Not Given Sodium Chloride (Flush - Normal Saline) 10 ml IVF PRN PRN PRN Reason: Saline Flush Last Admin: 09/12/17 17:56 Dose: 10 ml Valsartan (Diovan) 80 mg PO DAILY [facility] Last Admin: 09/08/17 08:25 Dose: 80 mg
[2017-09-14] MEDS: Dextrose 5% in Water 1,000 ML IV SCH ×2 (00:04→10:59)
[2017-09-14] MEDS: Insulin Regular 300 UNITS/3 ML VIAL SC PRN ×5 (00:44→17:03)
[2017-09-14] MEDS: Labetalol HCl 100 MG/20 ML VIAL SLOW IVP PRN ×2 (03:54→16:06)
[2017-09-14 04:31] LABS: Hemoglobin 8.1 g/dL (12.0-16.0); Platelet Count 314 thou/uL (130-400)
[2017-09-14 05:02] LABS: Anion Gap 12 mmol/L (10-20); BUN (Urea Nitrogen) 28 mg/dL (9.8-20.1); Calc. Creatinine Clearance 139 mL/min (70-130); Calcium 9.2 mg/dL (7.8-10.44); Carbon Dioxide 25 mmol/L (23-31); Chloride 105 mmol/L (98-107); Estimated GFR-MDRD 73; Glucose 280 mg/dL (83-110); Potassium 3.6 mmol/L (3.5-5.1); Sodium 138 mmol/L (136-145)
[2017-09-14] MEDS ORDERED: Furosemide 40 MG/4 ML VIAL SLOW IVP SCH ×2 (06:00→09:15)
[2017-09-14] MEDS: Amlodipine 5 MG TAB PO SCH (08:36)
[2017-09-14] MEDS: Saccharomyces boulardii 250 MG CAP PO SCH (08:37)
[2017-09-14] MEDS: Enoxaparin Sodium 120 MG/0.8 ML SYRINGE SC SCH (08:37)
[2017-09-14] MEDS: Aspirin 81 mg Enteric Coated Tablet PO SCH (08:37)
[2017-09-14] MEDS: Nystatin Powder 15 GM BOT TOP SCH ×2 (08:40→21:01)
[2017-09-14] MEDS: Senokot S 8.6-50 MG TAB PO SCH ×2 (08:56→21:01)
[2017-09-14] MEDS ORDERED: Dextrose 5% in Water 1,000 ML IV SCH (09:13)
[2017-09-14] MEDS ORDERED: Metolazone 2.5 MG TAB PO SCH (09:15)
--- NOTE | 2017-09-14 09:32 | PRG ---
DATE OF SERVICE: 09/14/2017 SERVICE: Pulmonary Medicine. INTERVAL HISTORY: I was called to evaluate the patient early because of increasing respiratory failu re and work of breathing. She is visibly tachypneic and in mild to moderate respiratory distress. S he has 1-2 word conversational dyspnea. Otherwise, there were no fevers overnight. The patient repo rts no new symptoms except for the difficulty with breathing. PHYSICAL EXAMINATION: VITAL SIGNS: Afebrile with a T-max of 100.0, pulse 96, blood pressure 167/75, respirations 34 and sa turation 96% on 2 liters nasal cannula. GENERAL: The patient is awake, alert, mild respiratory distress. LUNGS: Reduced air entry. There is a prolonged expiratory phase with some wheezing, but crackles pr edominate. HEART: Normal rate, regular. ABDOMEN: Soft, nontender and nondistended. Bowel sounds are positive. MUSCULOSKELETAL: No cyanosis or clubbing. There is diffuse 2+ pitting throughout. GENITOURINARY: Spaulding catheter in place. NEUROLOGIC: Grossly nonfocal. LABORATORY DATA: Creatinine 0.78, BUN 28, sodium 138 and nicely improving. Basic metabolic profile is otherwise unremarkable. WBC 15.1, hemoglobin 9.2, platelets 355,000. Blood cultures x2 are unrem arkable. ASSESSMENT: 1. Cellulitis of the lower extremity. 2. Acute hypoxic respiratory failure. 3. Delirium, agitated. 4. Severe sepsis. 5. Atrial fibrillation with rapid ventricular rate. 6. Acute on chronic diastolic heart failure. PLAN: The patient really is not responding to 40 mg of IV Lasix. I will give her a dose of metolazo ne and repeat IV Lasix. D5 water will be reduced. Mentation amaro, the patient has made significant headway. That being said, because of her increasing respiratory distress, we have elected to initiat e BiPAP, which I titrated for comfort at bedside. The patient will definitely need to remain in the IMCU for the time being while we work on now getting some volume off of her.
--- NOTE | 2017-09-14 11:15 | PDOC.CTH ---
Cardiology Progress Note - Subjective Pt. evaluated by me. She required BIPAP this AM. She is still lethargic. Offers very little complaints or info. No other acute changes overnight. - ROS not able to obtain ROS - Objective Vital Signs Temp Pulse Resp BP BP BP Pulse Ox 09/14/17 09:15 109 H 09/14/17 08:36 96 159/73 H 09/14/17 08:00 100.0 F H 96 34 H 167/75 H 96 09/14/17 07:10 94 L 09/14/17 04:53 141/72 H 09/14/17 04:00 99.5 F 103 H 26 H 204/86 H 97 09/14/17 03:54 93 09/13/17 23:55 99.5 F 93 22 H 189/88 H 97 Admit Weight 311 lb 4.8 oz Weight 300 lb 8 oz 09/13/17 09/14/17 09/15/17 06:59 06:59 06:59 Intake Total 2430 1100 Output Total 1150 1500 Balance 1280 -400 - Physical Examination General/Neuro: other: (arousable. Sleepy. BIPAP in place.) Neck: no JVD present Lungs: other: (few basilar rales but otherwise clear at this time.) Heart: other: (irreg./irreg/ no gross murmur.) Abdomen: other: (morbid obesity.) Extremities: other: (wrapped with kerlex.) - Telemetry Telemetry Rhythm: a fib. - Labs Result Diagrams: 09/14/17 03:43 09/14/17 03:43 - Assessment/Plan 1. Chronic Afib with RVR - HR has been upper 100-110s with Lobetalol IV PRN, diltiazem drip 7.5ml/h, Metoprolol PO and Digoxin 0.25mg IV q 1200; Increased Diltiazem drip from 7.5ml to 10ml/h; Restart Eliquis.Increase betablockers. 2. Sepsis 2/2 BLE cellulitis with ulceration and drainage and possible bacteremia? - On Atbx; managed by PCP 3. HTN -increase betablockers as tolerated. 4. DM type 2 - managed by PCP 5. Chronic kidney disease stage 3 with Hyperkalemia - improving, Losartan on hold 6. Chronic lymphedema in BLE - 7. PM placement in 2004 and change out in 2016 - PM interrogation showed normal function 8. Morbid obese - MAR reviewed
[2017-09-14] MEDS: Digoxin 0.5 MG/2 ML AMP SLOW IVP SCH (12:50)
[2017-09-14 14:34] LABS: Actual Bicarbonate (HCO3a) 25.2 mEq/L (22-28); Base Excess (BEa) 1.9 mEq/L (-2.0 to +3.0); CO2 Tension 34.4 mmHg (35.0-45.0); Hemoglobin (Hb) 9.8 g/dL (12.0-16.0); O2 Tension (PaO2) 133.7 mmHg (> 70.0); pH, Arterial 7.48 (7.35-7.45)
[2017-09-14 14:35] LABS: Calcium, Ionized 1.2 mmol/L (1.12-1.30); Puncture Site RRA
[2017-09-14] MEDS: Furosemide 100 mg/100 ml in NS IVPB SCH (14:50)
[2017-09-14 15:00] LABS: Bilirubin Negative (Negative); Blood, Urine Large (Negative); Clarity TURBID (Clear); Glucose, Urine (Dipstick) Negative (Negative); Leukocyte Large (Negative); Nitrite Negative (Negative); Protein, Urine (Dipstick) 30 mg/dL (Neg-Trace); Specific Gravity, Urine 1.013 (1.002-1.036); Urobilinogen 0.2 mg/dL (0.2-1.0)
[2017-09-14 15:07] LABS: Pathc Cast-AUWi Flag 11.09 (0-2.49); Yeast-AUWi Flag 27616.4 (0-25.0)
[2017-09-14 15:18] LABS: Bacteria/HPF 2+ HPF (None Seen); Manual Microscopic Reviewed? No Path Casts Seen; RBC/HPF GREATER THAN 50-TNTC HPF (0-3); Yeast-All Forms 4+ HPF (None Seen)
[2017-09-14] MEDS: cefTRIAXone\\ROCEPHIN 1 GM, Admixture Fee 1 EACH in Sodium Chloride 0.9% 100 ML IVPB SCH (17:03)
[2017-09-14] MEDS: Diltiazem HCl 125 MG, Admixture Fee 1 EACH in Sodium Chloride 0.9% 100 ML IVPB SCH (20:05)
--- NOTE | 2017-09-14 20:40 | PDOC.PN ---
- Subjective Encounter Start Date: 09/14/17 Encounter Start Time: 14:00 Patient seen and examined for Sepsis/Resp failure/Encephalopathy. Mentation slowly improving. On NIPPV. No overnight events - Objective Resuscitation Status: Resuscitation Status FULL:Full Resuscitation MAR Reviewed: Yes Vital Signs & Weight: Vital Signs (12 hours) Temp Pulse Resp BP BP Pulse Ox 09/14/17 20:00 99.8 F H 102 H 30 H 159/76 H 99 09/14/17 19:49 104 H 09/14/17 19:47 105 H 24 H 99 09/14/17 16:06 104 H 09/14/17 15:58 99.8 F H 97 30 H 185/76 H 99 09/14/17 13:36 111 H 09/14/17 12:50 104 H 09/14/17 12:00 99 09/14/17 11:36 100.1 F H 91 28 H 157/71 H 99 09/14/17 09:15 109 H Weight Admit Weight 311 lb 4.8 oz Weight 300 lb 8 oz Most Recent Monitor Data Heart Rate from ECG 110 NIBP 141/77 NIBP BP-Mean 105 Respiration from ECG 20 SpO2 83 I&O: 09/13/17 09/14/17 09/15/17 06:59 06:59 06:59 Intake Total 2430 1100 850 Output Total 1150 1500 2000 Balance 1280 -400 -1150 Result Diagrams: 09/14/17 03:43 09/14/17 03:43 Additional Labs: Accuchecks 09/14/17 09/14/17 09/14/17 16:51 12:16 08:47 POC Glucose 238 H 280 H 285 H 09/14/17 09/14/17 09/13/17 04:24 00:29 20:59 POC Glucose 293 H 302 H 318 H EKG Reviewed by me: Yes (SR) Phys Exam - Physical Examination on NIPPV, Mild resp distress Respiratory: no wheezing B/L rhonchi with bibasilar rales Cardiovascular: RRR, no rub Gastrointestinal: soft, non-tender, positive bowel sounds Musculoskeletal: edema present dressing + Neurological: moves all 4 limbs Dx/Plan - Plan IMPRESSION: 1. Sepsis secondary to extensive BLE cellulitis with ulceration and drainage ? bacteremia, 2. Atrial fibrillation with RVR - on Cardizem and Heparin drip 3. Toxic Metabolic Encephalopathy with Acute hypoxic respiratory failure s/p NIPPV 4. Diabetes mellitus type 2. on sliding scale 5. Chronic kidney disease stage 3 with Hyperkalemia - improving, Losartan on hold 6. Hypertension 7. Dyslipidemia/Mild intermittent asthma/Mild hyponatremia./Metabolic acidosis/ Bilateral lower extremity pain/Degenerative joint disease/GERD/Chronic lymphedema in bilateral lower extremities with venous hypertension and ulceration/ Morbid obesity BMI 49. PLAN: Cont Cardizem , Metoprolol with Digoxin for rate control Cont Anticoagulation NIPPV as needed Cont diuresis Change Atbx to Vancomycin and Zosyn Repeat blood culture Cardiology and Pulmonary following AM labs Cont other meds as below Review of Systems - Review of Systems Respiratory: negative: Cough, Dry, Shortness of Breath, Hemoptysis, SOB with Excertion, Pleuritic Pain, Sputum, Wheezing Cardiovascular: negative: chest pain, palpitations, orthopnea, paroxysmal nocturnal dyspnea, edema, light headedness, other - Medications/Allergies Allergies/Adverse Reactions: Allergies Allergy/AdvReac Type Severity Reaction Status Date / Time No Known Allergies Allergy Unverified 09/07/17 17:38 Medications: Current Medications Acetaminophen (Tylenol) 650 mg PO Q4H PRN PRN Reason: Headache/Fever or Pain Al Hydroxide/Mg Hydroxide (Maalox) 30 ml PO Q6H PRN PRN Reason: Heartburn or Indigestion Albuterol/Ipratropium (Duoneb) 3 ml NEB [id number] PRN PRN Reason: SOB &/or Wheezing Albuterol/Ipratropium (Duoneb) 3 ml NEB [id number] [facility] Last Admin: 09/14/17 19:47 Dose: 3 ml Amlodipine Besylate (Norvasc) 5 mg PO DAILY [facility] Last Admin: 09/14/17 08:36 Dose: 5 mg Apixaban (Eliquis) 5 mg PO BID [facility] Aspirin (Ecotrin) 81 mg PO DAILY [facility] Last Admin: 09/14/17 08:37 Dose: 81 mg Calcium Carbonate (Tums) 1,000 mg PO Q4H PRN PRN Reason: Heartburn or Indigestion Dextrose/Water (Dextrose 50%) 25 gm SLOW IVP PRN PRN PRN Reason: Hypoglycemia Digoxin (Lanoxin) 0.25 mg SLOW IVP 1200 [facility] Last Admin: 09/14/17 12:50 Dose: 0.25 mg Diltiazem HCl (Cardizem) 30 mg PO Q6HR PRN PRN Reason: HR >120 sustained Glucagon (Glucagon) 1 mg IM PRN PRN PRN Reason: Hypoglycemia Haloperidol Lactate (Haldol) 5 mg IM Q4H PRN PRN Reason: Agitation Last Admin: 09/13/17 16:07 Dose: 5 mg Dextrose/Water (D5w) 1,000 mls @ 0 mls/hr IV .Q0M PRN; As Directed PRN Reason: Hypoglycemia Heparin Sodium/Dextrose (Heparin 25,000 Units/D5w 500 Ml) 500 mls @ 0 mls/hr IVPB INF [facility]; Per Protocol PRN Reason: Protocol Last Admin: 09/13/17 07:04 Dose: 500 mls Diltiazem HCl 125 mg/Miscellaneous Medication 1 each/ Sodium Chloride 125 mls @ 10 mls/hr IVPB INF [facility] PRN Reason: Protocol Last Admin: 09/14/17 20:05 Dose: 125 mls Furosemide 100 mg/ Sodium (Chloride) 110 mls @ 10 mls/hr IVPB INF [facility] Last Admin: 09/14/17 14:50 Dose: 110 mls Piperacillin Sod/Tazobactam (Sod 3.375 gm/ Sodium Chloride) 100 mls @ 200 mls/ hr IVPB Q6H [facility] Vancomycin HCl 1 gm/ Device 200 mls @ 200 mls/hr IVPB ASDIR [facility] Insulin Human Regular (Humulin R) 0 units SC .BEDTIME SLIDING SC PRN PRN Reason: Bedtime Correctional Scale Last Admin: 09/14/17 00:44 Dose: 4 unit Insulin Human Regular (Humulin R) 0 units SC .MODERATE SLIDING SC PRN PRN Reason: Moderate Correctional Scale Last Admin: 09/14/17 17:03 Dose: 4 unit Labetalol HCl (Normodyne) 10 mg SLOW IVP Q4H PRN PRN Reason: Systolic BP > 180 Last Admin: 09/14/17 16:06 Dose: 10 mg Magnesium Hydroxide (Milk Of Magnesium) 30 ml PO DAILYPRN PRN PRN Reason: Constipation Last Admin: 09/08/17 14:00 Dose: 30 ml Metoprolol Tartrate (Lopressor) 5 mg IVP Q4H PRN PRN Reason: HR >120 Last Admin: 09/13/17 16:07 Dose: 5 mg Metoprolol Tartrate (Lopressor) 50 mg PO BID [facility] Miscellaneous Medication (Pharmacy To Dose) 1 each IVPB ONE PRN PRN Reason: Pharmacy to dose Nystatin (Mycostatin Powder) 0 gm TOP BID [facility] Last Admin: 09/14/17 08:40 Dose: 1 applic Ondansetron HCl (Zofran Odt) 4 mg PO Q6H PRN PRN Reason: Nausea/Vomiting Ondansetron HCl (Zofran) 4 mg IVP Q6H PRN PRN Reason: Nausea/Vomiting Saccharomyces Boulardii (Florastor) 250 mg PO DAILY [facility] Last Admin: 09/14/17 08:37 Dose: 250 mg Senna (Senokot) 2 tab PO HSPRN PRN PRN Reason: Constipation Senna/Docusate Sodium (Senokot S) 1 tab PO BID [facility] Last Admin: 09/14/17 08:56 Dose: Not Given Sodium Chloride (Flush - Normal Saline) 10 ml IVF Q12HR [facility] Last Admin: 09/14/17 08:37 Dose: 10 ml Sodium Chloride (Flush - Normal Saline) 10 ml IVF PRN PRN PRN Reason: Saline Flush Last Admin: 09/12/17 17:56 Dose: 10 ml Valsartan (Diovan) 80 mg PO DAILY [facility] Last Admin: 09/08/17 08:25 Dose: 80 mg
[2017-09-14] MEDS: Apixaban 5 MG TAB PO SCH (21:01)
[2017-09-14] MEDS: Metoprolol Tartrate 50 MG TAB PO SCH (21:01)
[2017-09-14] MEDS: Piperacillin/Tazobactam 3.375 GM in Sodium Chloride 0.9% 100 ML IVPB SCH (22:47)
[2017-09-15] MEDS: Furosemide 100 mg/100 ml in NS IVPB SCH ×2 (01:06→10:34)
[2017-09-15 01:24] LABS: #Eosinphils 0.2 thou/uL (0.0-0.7); #Lymphocytes 0.7 thou/uL (1.20-3.40); #Monocytes 1.6 thou/uL (0.11-0.59); #Neutrophils 9.3 thou/uL (1.40-6.50); %Eosinophils 1.3 % (0.0-10.0); %Lymphocytes 6.3 % (21.0-51.0); %Monocytes 13.4 % (0.0-10.0); Hemoglobin 9.1 g/dL (12.0-16.0); Mean Corpuscular HGB CONC 30.9 g/dL (32.0-36.0); Mean Corpuscular Hemoglobin 26.4 pg (27.0-31.0); Mean Corpuscular Volume 85.2 fL (78.0-98.0); Platelet Count 279 thou/uL (130-400); RBC Distribution Width 18.5 % (11.5-14.5); Red Blood Cell (RBC) Count 3.47 mill/uL (4.20-5.40); White Blood Cell (WBC) Count 11.8 thou/uL (4.8-10.8)
[2017-09-15 01:52] LABS: Anion Gap 14 mmol/L (10-20); BUN (Urea Nitrogen) 24 mg/dL (9.8-20.1); Calc. Creatinine Clearance 142 mL/min (70-130); Calcium 9.6 mg/dL (7.8-10.44); Carbon Dioxide 28 mmol/L (23-31); Chloride 102 mmol/L (98-107); Estimated GFR-MDRD 73; Glucose 252 mg/dL (83-110); Magnesium 1.1 mg/dL (1.6-2.6); Potassium 3.4 mmol/L (3.5-5.1); Sodium 141 mmol/L (136-145)
[2017-09-15] MEDS: Piperacillin/Tazobactam 3.375 GM in Sodium Chloride 0.9% 100 ML IVPB SCH ×4 (04:24→21:15)
[2017-09-15] MEDS: Insulin Regular 300 UNITS/3 ML VIAL SC PRN ×3 (04:25→21:19)
[2017-09-15] MEDS: Labetalol HCl 100 MG/20 ML VIAL SLOW IVP PRN (04:36)
[2017-09-15] MEDS: Metoprolol Tartrate 50 MG TAB PO SCH ×2 (08:23→21:14)
[2017-09-15] MEDS: Amlodipine 5 MG TAB PO SCH (08:23)
[2017-09-15] MEDS: Aspirin 81 mg Enteric Coated Tablet PO SCH (08:23)
[2017-09-15] MEDS: Senokot S 8.6-50 MG TAB PO SCH ×2 (08:24→21:14)
[2017-09-15] MEDS: Saccharomyces boulardii 250 MG CAP PO SCH (08:24)
[2017-09-15] MEDS: Nystatin Powder 15 GM BOT TOP SCH ×2 (08:24→21:14)
[2017-09-15] MEDS: Apixaban 5 MG TAB PO SCH ×2 (08:24→21:14)
--- NOTE | 2017-09-15 08:31 | RAD ---
FRONTAL VIEW CHEST: Date: 09/15/17 COMPARISON: 09/08/17. INDICATION: Shortness of breath. FINDINGS: The cardiac silhouette is enlarged. There is interstitial prominence of the perihilar regions bilater ally. Left-sided cardiac pacing device remains. There is a right central venous catheter, partially v isualized. Otherwise no significant interval change. IMPRESSION: 1. No consolidation. 2. Redemonstration of enlarged cardiac silhouette. POS: JOSE
[2017-09-15] MEDS: Diltiazem HCl 125 MG, Admixture Fee 1 EACH in Sodium Chloride 0.9% 100 ML IVPB SCH (10:34)
[2017-09-15] MEDS ORDERED: Potassium Chloride 20 MEQ/100 ML PREMIX BAG IVPB SCH (11:00)
[2017-09-15] MEDS ORDERED: Magnesium Sulfate 4 GM in Sodium Chloride 0.9% 250 ML 250 ML IVPB SCH (11:00)
[2017-09-15] MEDS ORDERED: Furosemide 100 MG in Sodium Chloride 0.9% 100 ML IVPB SCH (11:12)
--- NOTE | 2017-09-15 11:27 | PRG ---
DATE OF SERVICE: 09/15/2017 SERVICE: Pulmonary Medicine INTERVAL HISTORY: The patient is doing fine from a cardiovascular and respiratory standpoint. She d enies any current chest pain, nausea, vomiting or shortness of breath. 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 We were able to get her signif icantly negative by 4 liters with the Lasix drip. PHYSICAL EXAMINATION: VITAL SIGNS: Afebrile, pulse 96, blood pressure 182/67, respirations 22, saturation 100% on 2 liters nasal cannula. GENERAL: The patient is awake, alert, in no apparent distress. LUNGS: Excellent air entry. There is no rhonchi. There is minimal wheezing today. She is moving b makenzie air and there is no prolonged expiratory phase. Crackles are still present. HEART: Normal rate, regular. ABDOMEN: Soft, nontender, nondistended. Bowel sounds are positive. MUSCULOSKELETAL: No cyanosis or clubbing. There is diffuse 1-2+ pitting throughout. GENITOURINARY: Spaulding catheter in place. NEUROLOGIC: Grossly nonfocal. LABORATORY DATA: WBC down trending to 11.8, hemoglobin 9.1, platelets 279,000. Creatinine 0.78, BUN 24 and down trending, anion gap 14, bicarbonate 28 and roughly stable, potassium 3.4, magnesium 1.1. Blood cultures x2, urine culture are negative to date. IMAGING: Chest x-ray demonstrates enlarged cardiac silhouette, no evidence of consolidation. Inters titial prominence is present bilaterally. That being said, there seems to be less pulmonary vascular congestion present despite the fact this is a rotated film. ASSESSMENT: 1. Acute hypoxic respiratory failure. 2. Cellulitis of the lower extremity. 3. Delirium, agitated, improving. 4. Severe sepsis. 5. Atrial fibrillation with rapid ventricular response. 6. Acute on chronic diastolic heart failure. PLAN: We will drop our Lasix drip down to 5 mg per hour. Magnesium and potassium will be aggressive ly replaced throughout the day. My goal is to get her negative 1-2 liters over the next 24 hours. H opefully, as we get more volume off, we will be able to increase mobilization efforts.
[2017-09-15] MEDS: Digoxin 0.5 MG/2 ML AMP SLOW IVP SCH (12:05)
[2017-09-15 22:03] LABS: Vancomycin, Trough 24.8 ug/mL
--- NOTE | 2017-09-15 22:21 | PDOC.CTH ---
Cardiology Progress Note - Subjective Pt. was seen and eval. by me. She is more alert today. Still somewhat SOB but had good diuresis.No new events over night. - ROS shortness of breath - Objective Vital Signs Temp Pulse Resp BP Pulse Ox 09/15/17 19:10 100.8 F H 101 H 26 H 154/54 H 98 09/15/17 18:23 91 25 H 99 09/15/17 15:36 98.4 F 88 22 H 169/68 H 95 09/15/17 13:22 89 28 H 97 09/15/17 12:05 97 09/15/17 11:16 99.8 F H 93 24 H 172/70 H 97 Admit Weight 311 lb 4.8 oz Weight 293 lb 09/14/17 09/15/17 09/16/17 06:59 06:59 06:59 Intake Total 1100 1790 1400 Output Total 1500 5400 2550 Balance -400 -6460 -1150 - Physical Examination General/Neuro: alert & oriented x3 Neck: no JVD present Lungs: other: (expiratory wheeze.) Heart: other: (irreg/irreg.) Abdomen: other: (obese. ) Extremities: + edema B - Telemetry Telemetry Rhythm: afib. - Labs Result Diagrams: 09/15/17 01:10 09/15/17 01:10 - Assessment/Plan 1. Chronic Afib with RVR - HR has been upper 100-110s with Lobetalol IV PRN, diltiazem drip 7.5ml/h, Metoprolol PO and Digoxin 0.25mg IV q 1200; Increased Diltiazem drip from 7.5ml to 10ml/h; Restart Eliquis.Increase betablockers. 2. Sepsis 2/2 BLE cellulitis with ulceration and drainage and possible bacteremia? - On Atbx; managed by PCP 3. HTN -increase betablockers as tolerated. 4. DM type 2 - managed by PCP 5. Chronic kidney disease stage 3 with Hyperkalemia - improving, Losartan on hold 6. Chronic lymphedema in BLE - 7. PM placement in 2004 and change out in 2016 - PM interrogation showed normal function 8. Morbid obese - MAR reviewed
--- NOTE | 2017-09-15 22:28 | PDOC.PN ---
- Subjective Encounter Start Date: 09/15/17 Encounter Start Time: 07:30 Patient seen and examined for Sepsis/Afib with RVR/Encephalopathy/Resp failure. Mentation improving. Overnight events noted - Objective Resuscitation Status: Resuscitation Status FULL:Full Resuscitation MAR Reviewed: Yes Vital Signs & Weight: Vital Signs (12 hours) Temp Pulse Resp BP Pulse Ox 09/15/17 19:10 100.8 F H 101 H 26 H 154/54 H 98 09/15/17 18:23 91 25 H 99 09/15/17 15:36 98.4 F 88 22 H 169/68 H 95 09/15/17 13:22 89 28 H 97 09/15/17 12:05 97 09/15/17 11:16 99.8 F H 93 24 H 172/70 H 97 Weight Admit Weight 311 lb 4.8 oz Weight 293 lb Most Recent Monitor Data Heart Rate from ECG 110 NIBP 141/77 NIBP BP-Mean 105 Respiration from ECG 20 SpO2 83 I&O: 09/14/17 09/15/17 09/16/17 06:59 06:59 06:59 Intake Total 1100 1790 1400 Output Total 1500 5400 2550 Balance -400 -3610 -1150 Result Diagrams: 09/16/17 03:30 09/16/17 03:30 Additional Labs: Accuchecks 09/15/17 09/15/17 09/15/17 19:59 18:37 16:22 POC Glucose 415 H 433 H 527 H 09/15/17 09/15/17 09/15/17 14:11 09:19 04:26 POC Glucose 454 H 358 H 277 H 09/15/17 00:25 POC Glucose 248 H Phys Exam - Physical Examination Pt in mild resp distress Respiratory: no wheezing, no rhonchi Cardiovascular: RRR, no rub Gastrointestinal: soft, non-tender, positive bowel sounds Musculoskeletal: edema present Neurological: moves all 4 limbs Psychiatric: A&O x 3 Dx/Plan - 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 Sepsis secondary to extensive BLE cellulitis with ulceration and drainage ? bacteremia, 2. Atrial fibrillation with RVR - improving 3. Toxic Metabolic Encephalopathy with Acute hypoxic respiratory failure s/p NIPPV 4. Diabetes mellitus type 2. on sliding scale 5. Chronic kidney disease stage 3 with Hyperkalemia 6. Hypertension 7. Hypomagnesemia 8. Dyslipidemia/Mild intermittent asthma/Mild hyponatremia./Metabolic acidosis/ Bilateral lower extremity pain/Degenerative joint disease/GERD/Chronic lymphedema in bilateral lower extremities with venous hypertension and ulceration/ Morbid obesity BMI 49. PLAN: Replace Magnessium (4 gm IVPB) Cont Cardizem drip with oral Metoprolol with Anticoagulation NIPPV PRN Cont diuresis with Lasix drip Cardiology and Pulmonary following AM labs Cont other meds as below Resume Losartan in AM DC PO Amlodipine Review of Systems - Review of Systems Respiratory: negative: Cough, Dry, Shortness of Breath, Hemoptysis, SOB with Excertion, Pleuritic Pain, Sputum, Wheezing Cardiovascular: negative: chest pain, palpitations, orthopnea, paroxysmal nocturnal dyspnea, edema, light headedness, other - Medications/Allergies Allergies/Adverse Reactions: Allergies Allergy/AdvReac Type Severity Reaction Status Date / Time No Known Allergies Allergy Unverified 09/07/17 17:38 Medications: Current Medications Acetaminophen (Tylenol) 650 mg PO Q4H PRN PRN Reason: Headache/Fever or Pain Al Hydroxide/Mg Hydroxide (Maalox) 30 ml PO Q6H PRN PRN Reason: Heartburn or Indigestion Albuterol/Ipratropium (Duoneb) 3 ml NEB [id number] PRN PRN Reason: SOB &/or Wheezing Albuterol/Ipratropium (Duoneb) 3 ml NEB [id number] [facility] Last Admin: 09/15/17 18:23 Dose: 3 ml Amlodipine Besylate (Norvasc) 5 mg PO DAILY [facility] Last Admin: 09/15/17 08:23 Dose: 5 mg Apixaban (Eliquis) 5 mg PO BID [facility] Last Admin: 09/15/17 21:14 Dose: 5 mg Aspirin (Ecotrin) 81 mg PO DAILY [facility] Last Admin: 09/15/17 08:23 Dose: 81 mg Calcium Carbonate (Tums) 1,000 mg PO Q4H PRN PRN Reason: Heartburn or Indigestion Dextrose/Water (Dextrose 50%) 25 gm SLOW IVP PRN PRN PRN Reason: Hypoglycemia Digoxin (Lanoxin) 0.25 mg SLOW IVP 1200 [facility] Last Admin: 09/15/17 12:05 Dose: 0.25 mg Diltiazem HCl (Cardizem) 30 mg PO Q6HR PRN PRN Reason: HR >120 sustained Glucagon (Glucagon) 1 mg IM PRN PRN PRN Reason: Hypoglycemia Haloperidol Lactate (Haldol) 5 mg IM Q4H PRN PRN Reason: Agitation Last Admin: 09/13/17 16:07 Dose: 5 mg Dextrose/Water (D5w) 1,000 mls @ 0 mls/hr IV .Q0M PRN; As Directed PRN Reason: Hypoglycemia Diltiazem HCl 125 mg/Miscellaneous Medication 1 each/ Sodium Chloride 125 mls @ 10 mls/hr IVPB INF ELEONORA PRN Reason: Protocol Last Admin: 09/15/17 10:34 Dose: 125 mls Piperacillin Sod/Tazobactam (Sod 3.375 gm/ Sodium Chloride) 100 mls @ 200 mls/ hr IVPB 0300,0900,1500,2100 [facility] Last Admin: 09/15/17 21:15 Dose: 100 mls Vancomycin HCl 2 gm/ Sodium (Chloride) 500 mls @ 200 mls/hr IVPB 1000,2200 [facility] Last Admin: 09/15/17 10:33 Dose: 500 mls Furosemide 100 mg/ Sodium (Chloride) 110 mls @ 5 mls/hr IVPB INF [facility] Insulin Human Regular (Humulin R) 0 units SC .BEDTIME SLIDING SC PRN PRN Reason: Bedtime Correctional Scale Last Admin: 09/15/17 21:19 Dose: 5 unit Insulin Human Regular (Humulin R) 0 units SC .MODERATE SLIDING SC PRN PRN Reason: Moderate Correctional Scale Last Admin: 09/15/17 16:31 Dose: 10 unit Labetalol HCl (Normodyne) 10 mg SLOW IVP Q4H PRN PRN Reason: Systolic BP > 180 Last Admin: 09/15/17 04:36 Dose: 10 mg Magnesium Hydroxide (Milk Of Magnesium) 30 ml PO DAILYPRN PRN PRN Reason: Constipation Last Admin: 09/08/17 14:00 Dose: 30 ml Metoprolol Tartrate (Lopressor) 5 mg IVP Q4H PRN PRN Reason: HR >120 Last Admin: 09/13/17 16:07 Dose: 5 mg Metoprolol Tartrate (Lopressor) 50 mg PO BID [facility] Last Admin: 09/15/17 21:14 Dose: 50 mg Miscellaneous Medication (Pharmacy To Dose) 1 each IVPB ONE PRN PRN Reason: Pharmacy to dose Stop: 09/24/17 20:38 Nystatin (Mycostatin Powder) 0 gm TOP BID [facility] Last Admin: 09/15/17 21:14 Dose: 1 applic Ondansetron HCl (Zofran Odt) 4 mg PO Q6H PRN PRN Reason: Nausea/Vomiting Ondansetron HCl (Zofran) 4 mg IVP Q6H PRN PRN Reason: Nausea/Vomiting Saccharomyces Boulardii (Florastor) 250 mg PO DAILY [facility] Last Admin: 09/15/17 08:24 Dose: 250 mg Senna (Senokot) 2 tab PO HSPRN PRN PRN Reason: Constipation Senna/Docusate Sodium (Senokot S) 1 tab PO BID [facility] Last Admin: 09/15/17 21:14 Dose: Not Given Sodium Chloride (Flush - Normal Saline) 10 ml IVF Q12HR [facility] Last Admin: 09/15/17 21:16 Dose: 10 ml Sodium Chloride (Flush - Normal Saline) 10 ml IVF PRN PRN PRN Reason: Saline Flush Last Admin: 09/12/17 17:56 Dose: 10 ml Valsartan (Diovan) 80 mg PO DAILY [facility] Last Admin: 09/08/17 08:25 Dose: 80 mg
[2017-09-16] MEDS: Vancomycin HCl 1 GM in Premix Bag 1 BAG IVPB SCH ×2 (00:14→11:03)
[2017-09-16] MEDS: Insulin Regular 300 UNITS/3 ML VIAL SC PRN ×5 (00:15→15:52)
[2017-09-16] MEDS: Piperacillin/Tazobactam 3.375 GM in Sodium Chloride 0.9% 100 ML IVPB SCH ×4 (02:22→20:05)
[2017-09-16 04:28] LABS: #Eosinphils 0.2 thou/uL (0.0-0.7); #Lymphocytes 0.9 thou/uL (1.20-3.40); #Monocytes 1.8 thou/uL (0.11-0.59); #Neutrophils 12.3 thou/uL (1.40-6.50); %Basophils 0.1 % (0.0-1.0); %Eosinophils 1.6 % (0.0-10.0); %Lymphocytes 5.9 % (21.0-51.0); %Monocytes 11.6 % (0.0-10.0); %Neutrophils 80.8 % (42.0-75.0); Hemoglobin 8.6 g/dL (12.0-16.0); Mean Corpuscular HGB CONC 31.2 g/dL (32.0-36.0); Mean Corpuscular Hemoglobin 26.5 pg (27.0-31.0); Mean Platelet Volume 6.9 fL (7.4-10.4); Platelet Count 346 thou/uL (130-400); RBC Distribution Width 18.1 % (11.5-14.5); Red Blood Cell (RBC) Count 3.23 mill/uL (4.20-5.40); White Blood Cell (WBC) Count 15.2 thou/uL (4.8-10.8)
[2017-09-16 05:23] LABS: Anion Gap 14 mmol/L (10-20); BUN (Urea Nitrogen) 25 mg/dL (9.8-20.1); Calc. Creatinine Clearance 122 mL/min (70-130); Calcium 9.1 mg/dL (7.8-10.44); Carbon Dioxide 31 mmol/L (23-31); Chloride 100 mmol/L (98-107); Estimated GFR-MDRD 63; Glucose 302 mg/dL (83-110); Magnesium 1.7 mg/dL (1.6-2.6); Phosphorus 2.9 mg/dL (2.3-4.7); Potassium 3.5 mmol/L (3.5-5.1); Sodium 141 mmol/L (136-145)
[2017-09-16] MEDS: Saccharomyces boulardii 250 MG CAP PO SCH (08:25)
[2017-09-16] MEDS: Aspirin 81 mg Enteric Coated Tablet PO SCH (08:26)
[2017-09-16] MEDS: Apixaban 5 MG TAB PO SCH ×2 (08:26→20:09)
[2017-09-16] MEDS: Valsartan 80 MG TAB PO SCH (08:26)
[2017-09-16] MEDS: Senokot S 8.6-50 MG TAB PO SCH ×2 (08:26→20:09)
[2017-09-16] MEDS: Nystatin Powder 15 GM BOT TOP SCH ×2 (08:26→20:14)
[2017-09-16] MEDS: Metoprolol Tartrate 50 MG TAB PO SCH ×2 (08:26→20:09)
[2017-09-16] MEDS ORDERED: Insulin Glargine 30 UNITS in Pre-Filled Syringe 1 EACH SC SCH (09:00)
[2017-09-16] MEDS: Digoxin 0.5 MG/2 ML AMP SLOW IVP SCH (11:03)
--- NOTE | 2017-09-16 11:37 | PRG ---
DATE OF SERVICE: 09/16/2017 SUBJECTIVE: Ms. Cleary just feels miserable, feels bad all over. No specific area of pain. OBJECTIVE: VITAL SIGNS: Blood pressure 157/62, pulse is in the 80s and it is irregular. LUNGS: Clear. CARDIAC: Irregular, irregular. ABDOMEN: Soft, nontender. EXTREMITIES: Moderate to severe edema. ASSESSMENT: 1. Chronic atrial fibrillation, rate is now controlled. 2. Congestive heart failure, diastolic. 3. Hypertension, controlled. 4. Chronic kidney disease, stable with a creatinine of 0.88. 5. Diabetes. PLAN: Continue current medical regimen, consideration for increasing the furosemide tomorrow if stil l severely volume overloaded.
[2017-09-16] MEDS: Diltiazem HCl 125 MG, Admixture Fee 1 EACH in Sodium Chloride 0.9% 100 ML IVPB SCH (12:03)
[2017-09-16] MEDS ORDERED: Magnesium Sulfate 4 GM in Sodium Chloride 0.9% 250 ML 250 ML IVPB SCH (13:45)
[2017-09-16] MEDS ORDERED: Insulin Glargine 10 UNITS in Pre-Filled Syringe 1 EACH SC SCH (14:00)
[2017-09-16] MEDS: Potassium Chloride 20 MEQ TAB PO SCH ×2 (14:36→17:31)
--- NOTE | 2017-09-16 15:01 | PRG ---
DATE OF SERVICE: 09/16/2017. SUBJECTIVE: The patient is seen and examined at bedside. Her is present during my evaluatio n. He noticed significant improvement of her mental status and overall status. OBJECTIVE: VITAL SIGNS: Blood pressure is 157/62, pulse is 95, respiratory rate is 24, temperature is 98.9, and pulse oximetry is 96% on 2 liters by nasal cannula. GENERAL: She is still very swollen all over her body. HEENT: Her head is atraumatic, normocephalic. Eyes are PERRLA. Sclerae nonicteric. Oral mucosa is moist. NECK: Supple. LUNGS: Breath sounds diminished at both bases. CARDIOVASCULAR: S1, S2 normal, no S3, no S4. ABDOMEN: Soft, obese, nontender. EXTREMITIES: A 2-3+ peripheral edema on upper and lower extremities. Her calves wrapped with a band age that stressing for her cellulitis. NEUROLOGIC: She follows my commands. She is able to move all 4 extremities. There is not any motor deficits. LABORATORY DATA: Showed white count of 15.2, hemoglobin of 8.6, hematocrit 27.5, platelet count is 3 46,000. Normal electrolytes, BUN of 25, creatinine 0.88. Glycemia is ranging from 284-415. CULTURES: Blood cultures x2, no growth and follow up cultures done on the , no growth. Urine cu lture, yeast species more than 100,000 colonies. IMPRESSION: 1. Sepsis secondary to lower extremity cellulitis with ulcerations and drainage. 2. Atrial fibrillation with rapid ventricular response, improved. 3. Toxic metabolic encephalopathy. 4. Acute hypoxic respiratory failure, status post non-invasive positive pressure ventilation. 5. Chronic kidney disease stage 3. 6. Diabetes mellitus type 2. 7. Hypomagnesemia. 8. Dyslipidemia. 9. Chronic lymphedema in bilateral lower extremities and venous hypertension and ulcerations, infect ed. 10. Morbid obesity. PLAN: Put her back on her long-acting insulin, which is 60 units of Levemir twice a day. Atrial fib rillation managed per Cardiology. We will continue diuresis and consideration was given to increase the dose of her Lasix drip by Monday if the diuresis is not very effective. I believe that this need s to be done very slowly, otherwise we will have some renal issues. We will continue NIPPV p.r.n. an d will get physical therapy to start working with her since she is mentally much better.
--- NOTE | 2017-09-16 15:51 | PRG ---
DATE OF SERVICE: 09/16/2017 SERVICE: Pulmonary Medicine. INTERVAL HISTORY: The patient is doing great from a respiratory standpoint. She is also doing david stic from a mentation standpoint. She is breathing comfortably. She denies any shortness of breath or chest discomfort. Otherwise, there has been no interval change to her condition. We have gotten significant amounts of water off for the last 24 hours. Hemodynamically, she is likely on the dry si de, though she still remains profoundly volume up. PHYSICAL EXAMINATION: VITAL SIGNS: Afebrile, pulse 95, blood pressure 157/62, respirations 24, saturation 96% on 2 liters nasal cannula. GENERAL: The patient is awake and alert, in no apparent distress. LUNGS: Excellent air entry. There is no prolonged expiratory phase, wheezing, rhonchi, or crackles present. HEART: Normal rate, regular. ABDOMEN: Soft, nontender, nondistended. Bowel sounds are positive. MUSCULOSKELETAL: No cyanosis or clubbing. There are still 2+ pitting throughout. That being said, it is profoundly improved. NEUROLOGIC: Grossly nonfocal. LABORATORY DATA: WBC 15.2, hemoglobin 8.6, platelets 346,000. Creatinine 0.88, BUN 25. Potassium 3 .5. Magnesium 1.7, phosphorus 2.9. E species are growing in the urine. Blood cultures x4 remain ne gative. ASSESSMENT: 1. Acute hypoxic respiratory failure. 2. Cellulitis of the lower extremity, improving. 3. Delirium, agitated, improving. 4. Severe sepsis. 5. Atrial fibrillation with rapid ventricular response, currently rate controlled. 6. Acute on chronic diastolic heart failure. DISCUSSION AND PLAN: I will back off on the Lasix as I think that she is intravascularly depleted. We will start diuresing her once again tomorrow morning, but I will see if she can tolerate the IV do ses. Potassium and magnesium will once again be replaced today. We will continue working on mobiliz ing the patient to the best of our ability. Pulmonary and Critical Care will continue to follow tobias kaur I would like for her to continue using BiPAP at night for the time being as this may help to offl oad her heart.
--- NOTE | 2017-09-16 17:43 | EKG ---
Test Reason : STAT Blood Pressure : / mmHG Vent. Rate : 106 BPM Atrial Rate : 056 BPM P-R Int : 000 ms QRS Dur : 080 ms QT Int : 396 ms P-R-T Axes : 000 014 235 degrees QTc Int : 526 ms Atrial fibrillation with ventricular paced beats Cannot rule out Anterior infarct , age undetermined Prolonged QT Abnormal ECG When compared with ECG of 08-SEP-2017 07:49, Current undetermined rhythm precludes rhythm comparison, needs review ST now depressed in Lateral leads T wave inversion now evident in Anterolateral leads Confirmed by DELFNIO DUNCAN (2) on 09/16/2017 5:43:23 PM Referred By: VINAYAK Confirmed By:DELFINO DUNCAN
[2017-09-16] MEDS: Insulin Glargine 60 UNITS in Pre-Filled Syringe 1 EACH SC SCH (20:12)
[2017-09-16] MEDS ORDERED: Gabapentin 300 MG CAP PO SCH (22:00)
[2017-09-16 23:11] LABS: Vancomycin, Trough 21.6 ug/mL
[2017-09-16] MEDS: HYDROcodone/Acetaminophen 5/325 mg Tablet PO PRN (23:26)
[2017-09-16] MEDS: Vancomycin HCl 750 MG in Sodium Chloride 0.9% 250 ML 250 ML IVPB SCH (23:29)
[2017-09-17] MEDS: Diltiazem HCl 125 MG, Admixture Fee 1 EACH in Sodium Chloride 0.9% 100 ML IVPB SCH (01:45)
[2017-09-17] MEDS: Piperacillin/Tazobactam 3.375 GM in Sodium Chloride 0.9% 100 ML IVPB SCH ×4 (03:12→20:28)
[2017-09-17] MEDS: Furosemide 100 MG/10 ML VIAL SLOW IVP SCH ×2 (05:37→14:17)
[2017-09-17] MEDS ORDERED: Potassium Chloride 20 MEQ TAB PO SCH (06:00)
[2017-09-17] MEDS ORDERED: Diltiazem HCl 125 MG, Admixture Fee 1 EACH in Sodium Chloride 0.9% 100 ML IVPB SCH (08:34)
--- NOTE | 2017-09-17 08:59 | PRG ---
DATE OF SERVICE: 09/17/2017 SUBJECTIVE: Ms. Cleary is feeling better today. She says she is breathing better. She looks more aler t. PHYSICAL EXAMINATION: VITAL SIGNS: Her blood pressure is 169/56, pulse in the 80s. LUNGS: Clear. CARDIAC: Irregularly irregular. ABDOMEN: Soft, nontender. EXTREMITIES: There is still moderate to severe edema. ASSESSMENT: 1. Congestive heart failure, primarily diastolic. 2. Atrial fibrillation, chronic. PLAN: 1. She continues to be an intravenous furosemide. 2. We will reduce digoxin dose. 3. We will reduce diltiazem dose. 4. Dr. King to return tomorrow morning.
[2017-09-17] MEDS: Apixaban 5 MG TAB PO SCH ×2 (09:07→20:29)
[2017-09-17] MEDS: Saccharomyces boulardii 250 MG CAP PO SCH (09:07)
[2017-09-17] MEDS: Potassium Chloride 20 MEQ TAB PO SCH (09:07)
[2017-09-17] MEDS: Aspirin 81 mg Enteric Coated Tablet PO SCH (09:08)
[2017-09-17] MEDS: Metoprolol Tartrate 50 MG TAB PO SCH ×2 (09:08→20:29)
[2017-09-17] MEDS: Valsartan 80 MG TAB PO SCH (09:08)
[2017-09-17] MEDS: Senokot S 8.6-50 MG TAB PO SCH ×2 (09:08→20:29)
[2017-09-17] MEDS: Fluconazole 100 MG TAB PO SCH (09:08)
[2017-09-17] MEDS: Gabapentin 300 MG CAP PO SCH ×3 (09:08→21:45)
[2017-09-17] MEDS: Nystatin Powder 15 GM BOT TOP SCH ×2 (09:09→20:31)
[2017-09-17] MEDS: Insulin Glargine 60 UNITS in Pre-Filled Syringe 1 EACH SC SCH ×2 (09:16→20:29)
[2017-09-17] MEDS: Vancomycin HCl 750 MG in Sodium Chloride 0.9% 250 ML 250 ML IVPB SCH ×2 (11:50→23:18)
[2017-09-17] MEDS: Insulin Regular 300 UNITS/3 ML VIAL SC PRN ×3 (11:52→20:34)
[2017-09-17] MEDS ORDERED: Digoxin 0.5 MG/2 ML AMP SLOW IVP SCH (12:00)
--- NOTE | 2017-09-17 13:01 | PRG ---
DATE OF SERVICE: 09/17/2017. SUBJECTIVE: The patient is seen and examined at bedside. She is sitting in the rehab chair in uprig ht position. She is feeling better. I discussed the case with her who is in the room. He i s noticing significant improvement in her mental condition. She is able to respond to him much more properly than what she was a couple of days ago. OBJECTIVE: VITAL SIGNS: Blood pressure is 169/56, pulse is 83, temperature is 97.3, respiratory rate is 20. Sh e is on 2 liters by nasal cannula and she is saturating at 100%. HEENT: Head is atraumatic, normocephalic. Sclerae are nonicteric. Pupils are responding to light p roperly. Oral mucosa is moist. NECK: Supple. LUNGS: Breath sounds diminished at both bases. HEART: S1, S2 normal, no S3, no S4. The rate is irregularly irregular. ABDOMEN: Obese, soft, mildly distended, nontender. EXTREMITIES: A 2-3+ peripheral edema continues. NEUROLOGIC: She is able to answer my questions. She follows my commands. She is able to move her a ll 4 extremities. LABORATORY DATA: Showed a glycemia ranging from 196-310. IMPRESSION: 1. Sepsis secondary to lower extremity cellulitis with ulcerations and drainage. 2. Atrial fibrillation with rapid ventricular response, improved. 3. Toxic metabolic encephalopathy, improved. 4. Acute hypoxic respiratory failure, status post noninvasive positive pressure ventilation. 5. Chronic kidney disease stage 3. 6. Diabetes mellitus type 2, still uncontrolled. 7. Hypomagnesemia, corrected. 8. Dyslipidemia. 9. Chronic lymphedema in bilateral lower extremities and venous hypertension and ulcerations, infect ed. 10. Morbid obesity. PLAN: She was changed to her normal home dose of Levemir 60 mg twice a day, so today we do not see t he full effect of this dose change yet. We will keep her on the same regimen today. She is getting diuresed. Her last input and output showed additional loss of approximately 500 mL and she might nee d increased dose of Lasix tomorrow if her urine output is diminished and the fluid balance is less ne gative. The dose on Cardizem and digoxin were decreased by Cardiology. She did not require any NIPP V in the last 24 hours. We will continue her physical therapy and that she should be able to be move d from [facility] in the next 24-48 hours. We will continue apixaban and will continue Zosyn and vancomyci n for coverage. She was started on Diflucan yesterday for growth of more than 100,000 of Essence in urine. We will continue supportive care.
--- NOTE | 2017-09-17 15:02 | PRG ---
DATE OF SERVICE: 09/17/2017 SERVICE: Pulmonary Medicine. INTERVAL HISTORY: The patient is doing fine from a respiratory standpoint. She is actually mentatin g much better. She is more alert. She is conversive. She is tolerating p.o. She has no specific c omplaints today. PHYSICAL EXAMINATION: VITAL SIGNS: Afebrile, pulse 90, blood pressure 116/56, respirations 20, saturation 99% on 2 liters nasal cannula. GENERAL: The patient is awake, alert, no apparent distress. LUNGS: Decent air entry. There is no prolonged expiratory phase. No wheeze, rhonchi, or crackles a re identified. HEART: Normal rate, regular. ABDOMEN: Soft, nontender, nondistended. Bowel sounds are positive. MUSCULOSKELETAL: No cyanosis or clubbing. There is trace pitting in the bilateral lower extremities . NEUROLOGIC: Grossly nonfocal. ASSESSMENT: 1. Acute hypoxic respiratory failure, improving. 2. Cellulitis of the bilateral lower extremity, resolving. 3. Delirium, resolved. 4. Severe sepsis. 5. Atrial fibrillation with rapid ventricular response, currently rate controlled. 6. Acute on chronic diastolic heart failure. DISCUSSION AND PLAN: I will decrease her Lasix to once daily. I will repeat laboratories tomorrow i ncluding magnesium. We encourage mobility through time. Case management consultation will be placed as the patient is not going to be in any stay to go home directly from this hospital stay.
[2017-09-17] MEDS: HYDROcodone/Acetaminophen 5/325 mg Tablet PO PRN (21:16)
[2017-09-18] MEDS: Piperacillin/Tazobactam 3.375 GM in Sodium Chloride 0.9% 100 ML IVPB SCH ×2 (03:07→08:27)
[2017-09-18] MEDS: Furosemide 100 MG/10 ML VIAL SLOW IVP SCH (05:16)
[2017-09-18 07:12] LABS: #Basophils 0.1 thou/uL (0.0-0.2); #Eosinphils 0.5 thou/uL (0.0-0.7); #Monocytes 1.8 thou/uL (0.11-0.59); #Neutrophils 11.7 thou/uL (1.40-6.50); %Basophils 0.5 % (0.0-1.0); %Eosinophils 3.4 % (0.0-10.0); %Lymphocytes 6.4 % (21.0-51.0); %Monocytes 12.2 % (0.0-10.0); %Neutrophils 77.5 % (42.0-75.0); Hemoglobin 8.4 g/dL (12.0-16.0); Mean Corpuscular Hemoglobin 26.6 pg (27.0-31.0); Mean Corpuscular Volume 85.9 fL (78.0-98.0); Mean Platelet Volume 6.9 fL (7.4-10.4); Platelet Count 439 thou/uL (130-400); RBC Distribution Width 17.1 % (11.5-14.5); Red Blood Cell (RBC) Count 3.14 mill/uL (4.20-5.40); White Blood Cell (WBC) Count 15.1 thou/uL (4.8-10.8)
[2017-09-18 07:31] LABS: Anion Gap 9 mmol/L (10-20); BUN (Urea Nitrogen) 28 mg/dL (9.8-20.1); Calc. Creatinine Clearance 131 mL/min (70-130); Calcium 9.2 mg/dL (7.8-10.44); Carbon Dioxide 33 mmol/L (23-31); Chloride 100 mmol/L (98-107); Estimated GFR-MDRD 70; Glucose 69 mg/dL (83-110); Magnesium 1.5 mg/dL (1.6-2.6); Phosphorus 2.9 mg/dL (2.3-4.7); Potassium 3.7 mmol/L (3.5-5.1); Sodium 138 mmol/L (136-145)
[2017-09-18] MEDS: Saccharomyces boulardii 250 MG CAP PO SCH (08:26)
[2017-09-18] MEDS: Potassium Chloride 20 MEQ TAB PO SCH (08:26)
[2017-09-18] MEDS: Valsartan 80 MG TAB PO SCH (08:26)
[2017-09-18] MEDS: Gabapentin 300 MG CAP PO SCH ×2 (08:26→20:43)
[2017-09-18] MEDS: Aspirin 81 mg Enteric Coated Tablet PO SCH (08:26)
[2017-09-18] MEDS: Digoxin 0.125 MG TAB PO SCH (08:26)
[2017-09-18] MEDS: Metoprolol Tartrate 50 MG TAB PO SCH ×2 (08:26→20:43)
[2017-09-18] MEDS: Apixaban 5 MG TAB PO SCH ×2 (08:27→20:43)
[2017-09-18] MEDS: Multivitamin W/ Minerals 1 TAB PO SCH (08:27)
[2017-09-18] MEDS: Senokot S 8.6-50 MG TAB PO SCH ×2 (08:27→20:43)
[2017-09-18] MEDS: Insulin Glargine 60 UNITS in Pre-Filled Syringe 1 EACH SC SCH ×2 (08:27→20:43)
[2017-09-18] MEDS: Fluconazole 100 MG TAB PO SCH (08:27)
[2017-09-18] MEDS: Nystatin Powder 15 GM BOT TOP SCH ×2 (08:28→20:43)
[2017-09-18] MEDS ORDERED: Digoxin 0.5 MG/2 ML AMP SLOW IVP SCH (09:00)
[2017-09-18] MEDS ORDERED: Magnesium Sulfate 4 GM in Sodium Chloride 0.9% 250 ML 250 ML IVPB SCH (11:15)
[2017-09-18] MEDS ORDERED: Potassium Chloride 20 MEQ TAB PO SCH (11:15)
--- NOTE | 2017-09-18 11:36 | PRG ---
DATE OF SERVICE: 09/18/2017 SERVICE: Pulmonary Medicine INTERVAL HISTORY: The patient is doing absolutely fantastic. Her strength is improving a little bit . She was able to sit on the side of the bed with physical therapy today. She is not standing yet. She is able to lift her arms up off the bed today. Otherwise, there has been no significant interva l change to her condition. She remains significantly volume overloaded. That being said, it is not causing any respiratory disturbance at this point. We are slowly getting that fluid off through time . PHYSICAL EXAMINATION: VITAL SIGNS: Afebrile, pulse 101, blood pressure 176/69, respirations 16, saturation 100% on 2 liter s nasal cannula. GENERAL: The patient is awake, alert, in no apparent distress. LUNGS: Excellent air entry. There is no prolonged expiratory phase, wheezing, rhonchi or crackles. HEART: Normal rate, regular. ABDOMEN: Soft, nontender, nondistended. Bowel sounds are positive. MUSCULOSKELETAL: No cyanosis or clubbing. There is 1+ pitting in the bilateral lower extremities. There is 2+ pitting in the bilateral upper extremities. NEUROLOGIC: Grossly nonfocal. LABORATORY DATA: WBC 15.1, hemoglobin 8.4 and stable, platelets 439,000. Creatinine 0.81, BUN 28, b icarbonate 33. Basic metabolic profile is otherwise unremarkable. Magnesium 1.5. ASSESSMENT: 1. Acute hypoxic respiratory failure, resolving. 2. Cellulitis of the lower extremity, resolving. 3. Delirium, previously associated with elevated sodium. 4. Severe sepsis, resolved. 5. Atrial fibrillation with rapid ventricular response, currently rate controlled. 6. Acute on chronic diastolic heart failure. DISCUSSION AND PLAN: I will provide her with an intermittent dose of Lasix into the afternoon. We a re going to watch her sodium and if they start to creep up, she may need both free water and Lasix mo ving forward. Magnesium and potassium will be replaced again. I will move her out to the telemetry unit, but it is imperative that we continue our mobilization efforts. At this point, she is likely s table for transition out of the hospital provided that we continue to diurese her through time.
[2017-09-18 11:40] LABS: Vancomycin, Trough 17.9 ug/mL
--- NOTE | 2017-09-18 11:47 | PDOC.PN ---
- Subjective Encounter Start Date: 09/18/17 Encounter Start Time: 11:43 Subjective: legs still bothering her - Objective Resuscitation Status: Resuscitation Status FULL:Full Resuscitation MAR Reviewed: Yes Vital Signs & Weight: Vital Signs (12 hours) Temp Pulse Resp BP Pulse Ox 09/18/17 11:37 98.2 F 78 22 H 162/72 H 100 09/18/17 08:27 101 H 09/18/17 08:26 98 09/18/17 08:00 98.2 F 101 H 16 100 09/18/17 07:41 100 09/18/17 07:40 101 H 16 99 09/18/17 07:36 98.2 F 86 23 H 176/69 H 93 L 09/18/17 04:00 98.6 F 83 18 161/69 H 100 09/18/17 02:13 76 09/17/17 23:57 83 16 98 09/17/17 23:48 98.8 F 90 31 H 157/65 H 99 Weight Admit Weight 311 lb 4.8 oz Weight 287 lb 9.6 oz Most Recent Monitor Data Heart Rate from ECG 110 NIBP 141/77 NIBP BP-Mean 105 Respiration from ECG 20 SpO2 83 I&O: 09/17/17 09/18/17 09/19/17 06:59 06:59 06:59 Intake Total 2414 2190 Output Total 2895 3250 Balance -481 -1060 Result Diagrams: 09/18/17 07:03 09/18/17 07:03 Additional Labs: Accuchecks 09/18/17 09/18/17 09/17/17 10:47 05:17 19:51 POC Glucose 69 L 82 241 H 09/17/17 17:13 POC Glucose 227 H Phys Exam - Physical Examination Neck: no JVD Respiratory: clear to auscultation bilateral Cardiovascular: no significant murmur, irregular Gastrointestinal: soft, non-tender, positive bowel sounds Musculoskeletal: edema present Dx/Plan (1) Cellulitis of both lower extremities Code(s): L03.115 - CELLULITIS OF RIGHT LOWER LIMB; L03.116 - CELLULITIS OF LEFT LOWER LIMB Status: Acute (2) Atrial fibrillation with normal ventricular rate Code(s): I48.91 - UNSPECIFIED ATRIAL FIBRILLATION Status: Acute (3) DM type 2 (diabetes mellitus, type 2) Status: Acute Qualifiers: Diabetes mellitus terminal makeup operator insulin use: with skilled nursing use Diabetes mellitus complication status: with kidney complications Diabetes mellitus complication detail: with chronic kidney disease Chronic kidney disease stage : stage 3 (moderate) Qualified Code(s): E11.22 - Type 2 diabetes mellitus with diabetic chronic kidney disease; N18.3 - Chronic kidney disease, stage 3 ( moderate); N18.3 - Chronic kidney disease, stage 3 (moderate); N18.3 - Chronic kidney disease, stage 3 (moderate); Z79.4 - oil heaterman (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
[2017-09-18] MEDS: Vancomycin HCl 750 MG in Sodium Chloride 0.9% 250 ML 250 ML IVPB SCH (11:55)
[2017-09-18] MEDS: HYDROcodone/Acetaminophen 5/325 mg Tablet PO PRN (11:55)
--- NOTE | 2017-09-18 15:29 | PDOC.CTH ---
<Lillian Gallardo - Last Filed: 09/18/17 15:29> Cardiology Progress Note - Subjective The pt seen and examined. No overnight events. No cardiac complaints. She is alerted and oriented to self and situation now. Able to swallow PO now. - Objective Vital Signs Temp Pulse Resp BP Pulse Ox 09/18/17 13:59 88 16 97 09/18/17 11:48 98.2 F 78 22 H 162/72 H 100 09/18/17 11:37 98.2 F 78 22 H 162/72 H 100 09/18/17 08:27 101 H 09/18/17 08:26 98 09/18/17 08:00 98.2 F 101 H 16 100 09/18/17 07:41 100 09/18/17 07:40 101 H 16 99 09/18/17 07:36 98.2 F 86 23 H 176/69 H 93 L 09/18/17 04:00 98.6 F 83 18 161/69 H 100 Admit Weight 311 lb 4.8 oz Weight 287 lb 9.6 oz 09/17/17 09/18/17 09/19/17 06:59 06:59 06:59 Intake Total 2414 2190 Output Total 2895 3250 1450 Balance -926 -3537 -8391 - Physical Examination General/Neuro: other: (alert & oriented to self and situation) Neck: no JVD present Lungs: other: (diminished at bases) Heart: other: (irregular) Abdomen: soft Extremities: other: (dressing to BLE; generalized edema) - Labs Result Diagrams: 09/18/17 07:03 09/18/17 07:03 - Assessment/Plan 1. Chronic Afib with RVR - Well controlled HR with Diltiazem 120mg PO qd and Digoxin 0.125mg PO qd and Eliquis 5mg BID. Cont. to monitor on tele. 2. Sepsis 2/2 BLE cellulitis with ulceration and drainage and possible bacteremia? - On Atbx; managed by PCP 3. HTN - start Coreg 3.125mg BID from this PM. 4. DM type 2 - managed by PCP 5. Chronic kidney disease stage 3 with Hyperkalemia - improving. 6. Chronic lymphedema in BLE - wound care tx 7. PM placement in 2004 and change out in 2016 - PM interrogation showed normal function 8. Morbid obese - MAR reviewed Review of Systems - Review of Systems EENTM: reports: no symptoms reported Respiratory: reports: no symptoms reported Cardiac (ROS): reports: no symptoms reported ABD/GI: reports: no symptoms reported : reports: no symptoms reported Musculoskeletal: reports: no symptoms reported <Felecia King - Last Filed: 09/18/17 19:29> Cardiology Progress Note - Objective Vital Signs Temp Pulse Resp BP Pulse Ox 09/18/17 18:56 88 20 96 09/18/17 15:48 99.4 F 92 21 H 130/48 L 96 09/18/17 13:59 88 16 97 09/18/17 11:48 98.2 F 78 22 H 162/72 H 100 09/18/17 11:37 98.2 F 78 22 H 162/72 H 100 09/18/17 08:27 101 H 09/18/17 08:26 98 09/18/17 08:00 98.2 F 101 H 16 100 09/18/17 07:41 100 09/18/17 07:40 101 H 16 99 09/18/17 07:36 98.2 F 86 23 H 176/69 H 93 L Admit Weight 311 lb 4.8 oz Weight 287 lb 9.6 oz 09/17/17 09/18/17 09/19/17 06:59 06:59 06:59 Intake Total 2414 2190 950 Output Total 2895 3250 1900 Balance -481 -1060 -950 - Labs Result Diagrams: 09/18/17 07:03 09/18/17 07:03 - Assessment/Plan Pt. seen and eval by me. I agree with the A/P by the ANALYTICAL LAB ANALYST. Chest clear. Irreg/ irreg.
[2017-09-18] MEDS: Carvedilol 3.125 MG TAB PO SCH (16:29)
[2017-09-19] MEDS: Acetaminophen 325 MG TAB PO PRN ×3 (04:21→23:44)
[2017-09-19] MEDS: Furosemide 100 MG/10 ML VIAL SLOW IVP SCH (04:23)
[2017-09-19] MEDS: Potassium Chloride 20 MEQ TAB PO SCH (09:37)
[2017-09-19] MEDS: Carvedilol 3.125 MG TAB PO SCH ×2 (09:37→16:29)
[2017-09-19] MEDS: Apixaban 5 MG TAB PO SCH ×2 (09:38→21:31)
[2017-09-19] MEDS: Digoxin 0.125 MG TAB PO SCH (09:38)
[2017-09-19] MEDS: Gabapentin 300 MG CAP PO SCH ×2 (09:39→21:31)
[2017-09-19] MEDS: Metoprolol Tartrate 50 MG TAB PO SCH ×2 (09:39→21:31)
[2017-09-19] MEDS: Multivitamin W/ Minerals 1 TAB PO SCH (09:39)
[2017-09-19] MEDS: Fluconazole 100 MG TAB PO SCH (09:39)
[2017-09-19] MEDS: Insulin Glargine 60 UNITS in Pre-Filled Syringe 1 EACH SC SCH ×2 (09:39→21:32)
[2017-09-19] MEDS: Nystatin Powder 15 GM BOT TOP SCH ×2 (09:39→21:36)
[2017-09-19] MEDS: Valsartan 80 MG TAB PO SCH (09:40)
[2017-09-19] MEDS: Saccharomyces boulardii 250 MG CAP PO SCH (09:40)
[2017-09-19] MEDS: Senokot S 8.6-50 MG TAB PO SCH ×2 (09:40→21:31)
[2017-09-19] MEDS: traMADol HCl 50 MG TAB PO PRN (13:21)
--- NOTE | 2017-09-19 13:45 | PDOC.PN ---
- Subjective Encounter Start Date: 09/19/17 Encounter Start Time: 13:44 Subjective: hands and feet still puffy - Objective Resuscitation Status: Resuscitation Status FULL:Full Resuscitation MAR Reviewed: Yes Vital Signs & Weight: Vital Signs (12 hours) Temp Pulse Resp BP BP Pulse Ox 09/19/17 11:55 97.9 F 95 24 H 161/66 H 97 09/19/17 09:38 91 09/19/17 08:00 97.5 F L 91 20 98 09/19/17 07:49 96 09/19/17 07:47 91 20 96 09/19/17 07:41 97.5 F L 74 21 H 153/63 H 100 09/19/17 04:00 98.2 F 81 17 155/62 H 100 Weight Admit Weight 311 lb 4.8 oz Weight 290 lb 5 oz Most Recent Monitor Data Heart Rate from ECG 110 NIBP 141/77 NIBP BP-Mean 105 Respiration from ECG 20 SpO2 83 I&O: 09/18/17 09/19/17 09/20/17 06:59 06:59 06:59 Intake Total 2190 1930 Output Total 3250 2700 Balance -1060 -770 Result Diagrams: 09/18/17 07:03 09/18/17 07:03 Additional Labs: Accuchecks 09/19/17 09/19/17 09/19/17 10:09 06:00 05:39 POC Glucose 144 H 74 56 L* 09/18/17 09/18/17 19:53 17:03 POC Glucose 145 H 200 H Phys Exam - Physical Examination Neck: no JVD Respiratory: clear to auscultation bilateral Cardiovascular: no significant murmur, irregular Gastrointestinal: soft, non-tender, positive bowel sounds Musculoskeletal: edema present Dx/Plan (1) Cellulitis of both lower extremities Code(s): L03.115 - CELLULITIS OF RIGHT LOWER LIMB; L03.116 - CELLULITIS OF LEFT LOWER LIMB Status: Acute (2) Atrial fibrillation with normal ventricular rate Code(s): I48.91 - UNSPECIFIED ATRIAL FIBRILLATION Status: Chronic (3) DM type 2 (diabetes mellitus, type 2) Status: Chronic Qualifiers: Diabetes mellitus intermodal customer service insulin use: with shelter use Diabetes mellitus complication status: with kidney complications Diabetes mellitus complication detail: with chronic kidney disease Chronic kidney disease stage : stage 3 (moderate) Qualified Code(s): E11.22 - Type 2 diabetes mellitus with diabetic chronic kidney disease; N18.3 - Chronic kidney disease, stage 3 ( moderate); N18.3 - Chronic kidney disease, stage 3 (moderate); N18.3 - Chronic kidney disease, stage 3 (moderate); Z79.4 - detention (current) use of insulin; Z79.4 - buttermaker helper (current) use of insulin; Z79.4 - detention (current) use of insulin; Z79.4 - detention (current) use of insulin (4) HTN (hypertension) Code(s): I10 - ESSENTIAL (PRIMARY) HYPERTENSION Status: Chronic Qualifiers: Hypertension type: essential hypertension Qualified Code(s): I10 - Essential (primary) hypertension (5) Diastolic dysfunction Code(s): I51.9 - HEART DISEASE, UNSPECIFIED Status: Acute - Plan cont diuresis with iv lasix -: cont coreg, dig, diltizem -: cont accu/ss/long acting insulin * .
--- NOTE | 2017-09-19 17:24 | PRG ---
DATE OF SERVICE: 09/19/2017 SUBJECTIVE: Madiha is stable. OBJECTIVE: VITAL SIGNS: Have been stable. Blood pressure has been a little elevated between the 160s to 170s. Heart rates in the 80s to 100 range. Respiratory rates in the teens. There are no changes overall compared to Dr. Donovan's past notes from what I can tell. IMPRESSION: 1. Cellulitis, resolving. 2. Delirium, improved. 3. Atrial fibrillation. 4. Acute on chronic diastolic heart failure. Cardiology and the hospitalists are following her. We will follow from a distance. She is stable af ter moving out of the Intermediate Care Unit.
--- NOTE | 2017-09-19 19:53 | PDOC.CTH ---
Cardiology Progress Note - Subjective Pt. seen and eval. by me. More alert today. c/o's of foot pain. No cardiac complaints. No new events over night. - Objective Vital Signs Temp Pulse Pulse Pulse Resp BP BP 09/19/17 19:20 94 22 H 09/19/17 16:23 98.2 F 78 16 09/19/17 14:50 82 82 142/69 H 148/65 H 09/19/17 13:55 75 20 09/19/17 12:24 97.8 F 88 24 H 09/19/17 11:55 97.9 F 95 24 H 09/19/17 09:38 91 09/19/17 08:00 97.5 F L 91 20 BP BP Pulse Ox 09/19/17 19:20 91 L 09/19/17 16:23 170/78 H 90 L 09/19/17 14:50 09/19/17 13:55 97 09/19/17 12:24 145/71 H 96 09/19/17 11:55 161/66 H 97 09/19/17 09:38 09/19/17 08:00 98 Admit Weight 311 lb 4.8 oz Weight 290 lb 5 oz 09/18/17 09/19/17 09/20/17 06:59 06:59 06:59 Intake Total 2190 1930 Output Total 3250 2700 1050 Balance -1060 -770 -1050 - Physical Examination General/Neuro: alert & oriented x3 Neck: no JVD present Lungs: CTA Heart: other: - Telemetry Telemetry Rhythm: irreg. Afib. - Labs Result Diagrams: 09/18/17 07:03 09/18/17 07:03 - Assessment/Plan 1. Chronic Afib with RVR - Well controlled HR with Diltiazem 120mg PO qd and Digoxin 0.125mg PO qd and Eliquis 5mg BID. Cont. to monitor on tele. 2. Sepsis 2/2 BLE cellulitis with ulceration and drainage and possible bacteremia? - On Atbx; managed by PCP 3. HTN - Coreg 3.125mg BID , tolerating. 4. DM type 2 - managed by PCP 5. Chronic kidney disease stage 3 with Hyperkalemia - improving. 6. Chronic lymphedema in BLE - wound care tx 7. PM placement in 2004 and change out in 2015 - PM interrogation showed normal function 8. Morbid obese - MAR reviewed
[2017-09-20] MEDS: Furosemide 100 MG/10 ML VIAL SLOW IVP SCH (05:15)
[2017-09-20] MEDS: Multivitamin W/ Minerals 1 TAB PO SCH (09:00)
[2017-09-20] MEDS: Nystatin Powder 15 GM BOT TOP SCH ×2 (09:00→20:46)
[2017-09-20] MEDS: Fluconazole 100 MG TAB PO SCH (09:01)
[2017-09-20] MEDS: Metoprolol Tartrate 50 MG TAB PO SCH ×2 (09:01→20:46)
[2017-09-20] MEDS: Saccharomyces boulardii 250 MG CAP PO SCH (09:01)
[2017-09-20] MEDS: Apixaban 5 MG TAB PO SCH ×2 (09:01→20:46)
[2017-09-20] MEDS: Digoxin 0.125 MG TAB PO SCH (09:01)
[2017-09-20] MEDS: traMADol HCl 50 MG TAB PO PRN ×2 (09:02→22:48)
[2017-09-20] MEDS: Potassium Chloride 20 MEQ TAB PO SCH (09:02)
[2017-09-20] MEDS: Valsartan 80 MG TAB PO SCH (09:02)
[2017-09-20] MEDS: Carvedilol 3.125 MG TAB PO SCH ×2 (09:02→16:48)
[2017-09-20] MEDS: Gabapentin 300 MG CAP PO SCH (09:03)
[2017-09-20] MEDS: Senokot S 8.6-50 MG TAB PO SCH ×2 (09:03→20:46)
[2017-09-20] MEDS: Insulin Glargine 60 UNITS in Pre-Filled Syringe 1 EACH SC SCH ×2 (09:03→21:59)
--- NOTE | 2017-09-20 10:24 | PDOC.PN ---
- Subjective Encounter Start Date: 09/20/17 Encounter Start Time: 10:20 Subjective: alert, only complaint is neuropathic pain in feet - Objective Resuscitation Status: Resuscitation Status FULL:Full Resuscitation MAR Reviewed: Yes Vital Signs & Weight: Vital Signs (12 hours) Temp Pulse Resp BP BP Pulse Ox 09/20/17 08:43 93 L 09/20/17 07:45 68 16 90 L 09/20/17 07:25 97.9 F 81 22 H 137/62 94 L 09/20/17 04:21 99.4 F 80 22 H 148/65 H 96 09/20/17 01:06 89 18 99 09/19/17 23:30 101.2 F H 81 26 H 172/71 H 92 L Weight Admit Weight 311 lb 4.8 oz Weight 291 lb 3.2 oz Most Recent Monitor Data Heart Rate from ECG 110 NIBP 141/77 NIBP BP-Mean 105 Respiration from ECG 20 SpO2 83 I&O: 09/19/17 09/20/17 09/21/17 06:59 06:59 06:59 Intake Total 1930 1452 Output Total 2700 1950 Balance -770 -498 Result Diagrams: 09/18/17 07:03 09/18/17 07:03 Additional Labs: Accuchecks 09/20/17 09/19/17 09/19/17 06:06 20:19 17:23 POC Glucose 145 H 308 H 252 H 09/19/17 10:09 POC Glucose 144 H Phys Exam - Physical Examination Neck: no JVD Respiratory: clear to auscultation bilateral Cardiovascular: no significant murmur, irregular Gastrointestinal: soft, positive bowel sounds Musculoskeletal: edema present Dx/Plan (1) Cellulitis of both lower extremities Code(s): L03.115 - CELLULITIS OF RIGHT LOWER LIMB; L03.116 - CELLULITIS OF LEFT LOWER LIMB Status: Resolved (2) Atrial fibrillation with normal ventricular rate Code(s): I48.91 - UNSPECIFIED ATRIAL FIBRILLATION Status: Chronic (3) DM type 2 (diabetes mellitus, type 2) Status: Chronic Qualifiers: Diabetes mellitus mcfp insulin use: with mcfp use Diabetes mellitus complication status: with kidney complications Diabetes mellitus complication detail: with chronic kidney disease Chronic kidney disease stage : stage 3 (moderate) Qualified Code(s): E11.22 - Type 2 diabetes mellitus with diabetic chronic kidney disease; N18.3 - Chronic kidney disease, stage 3 ( moderate); N18.3 - Chronic kidney disease, stage 3 (moderate); N18.3 - Chronic kidney disease, stage 3 (moderate); Z79.4 - detention (current) use of insulin; Z79.4 - detention (current) use of insulin; Z79.4 - paper cone maker (current) use of insulin; Z79.4 - paper cone maker (current) use of insulin (4) HTN (hypertension) Code(s): I10 - ESSENTIAL (PRIMARY) HYPERTENSION Status: Chronic Qualifiers: Hypertension type: essential hypertension Qualified Code(s): I10 - Essential (primary) hypertension (5) Diastolic dysfunction Code(s): I51.9 - HEART DISEASE, UNSPECIFIED Status: Chronic - Plan cont wound cre -: cont coreg, anticoag, diltiazem -: cont accu/ss/ glargine ins * .
[2017-09-20] MEDS: Insulin Regular 300 UNITS/3 ML VIAL SC PRN (11:51)
--- NOTE | 2017-09-20 13:31 | PDOC.CTH ---
<Lillian Gallardo - Last Filed: 09/20/17 13:28> Cardiology Progress Note - Subjective The pt seen and examined. No overnight events. No cardiac complaints. Complains of swelling of hands. - Objective Vital Signs Temp Pulse Resp BP BP BP Pulse Ox 09/20/17 12:25 78 16 97 09/20/17 11:50 98.0 F 77 16 146/78 H 94 L 09/20/17 11:21 148/70 H 09/20/17 08:43 93 L 09/20/17 07:45 68 16 90 L 09/20/17 07:25 97.9 F 68 16 137/62 94 L 09/20/17 04:21 99.4 F 80 22 H 148/65 H 96 Admit Weight 311 lb 4.8 oz Weight 291 lb 3.2 oz 09/19/17 09/20/17 09/21/17 06:59 06:59 06:59 Intake Total 1930 1452 Output Total 2700 1950 Balance -770 -498 - Physical Examination General/Neuro: alert & oriented x3 Lungs: CTA Heart: RRR Abdomen: soft Extremities: other: (Dry dressing) - Telemetry Telemetry Rhythm: AFib 80-90s - Labs Result Diagrams: 09/18/17 07:03 09/18/17 07:03 - Assessment/Plan 1. Chronic Afib with RVR - Well controlled HR with Diltiazem 120mg PO qd, Digoxin 0.125mg PO qd, and Eliquis 5mg BID. Cont. to monitor on tele. 2. Sepsis 2/2 BLE cellulitis with ulceration and drainage and possible bacteremia? - On Atbx; managed by PCP 3. HTN - stable. 4. DM type 2 - managed by PCP 5. Chronic kidney disease stage 3 with Hyperkalemia - improving. 6. Chronic lymphedema in BLE - wound care tx 7. PM placement in 2005 and change out in 2016 - PM interrogation showed normal function 8. Morbid obese - MAR reviewed Review of Systems - Review of Systems Constitutional: reports: weakness EENTM: reports: no symptoms reported Respiratory: reports: no symptoms reported Cardiac (ROS): reports: no symptoms reported ABD/GI: reports: no symptoms reported : reports: no symptoms reported Musculoskeletal: reports: no symptoms reported <Felecia King - Last Filed: 09/20/17 18:46> Cardiology Progress Note - Objective Vital Signs Temp Pulse Resp BP BP Pulse Ox 09/20/17 16:47 99.1 F 80 24 H 151/67 H 94 L 09/20/17 12:25 78 16 97 09/20/17 11:50 98.0 F 77 16 146/78 H 94 L 09/20/17 11:21 148/70 H 09/20/17 08:43 93 L 09/20/17 07:45 68 16 90 L 09/20/17 07:25 97.9 F 68 16 137/62 94 L Admit Weight 311 lb 4.8 oz Weight 291 lb 3.2 oz 09/19/17 09/20/17 09/21/17 06:59 06:59 06:59 Intake Total 1930 1452 Output Total 2700 1950 Balance -770 -498 - Labs Result Diagrams: 09/18/17 07:03 09/18/17 07:03 - Assessment/Plan Pt. seen and eval. by me. I agree with the A/P by the CALIBRATION TECHNICIAN. She is alert today. Her is concerned that the Lyrica is causing her to be weak. He wants to decrease the dose of the medication. Irreg/irreg. Chest clear.
[2017-09-21] MEDS: Furosemide 100 MG/10 ML VIAL SLOW IVP SCH (05:15)
[2017-09-21] MEDS: Fluconazole 100 MG TAB PO SCH (09:27)
[2017-09-21] MEDS: Valsartan 80 MG TAB PO SCH (09:28)
[2017-09-21] MEDS: Multivitamin W/ Minerals 1 TAB PO SCH (09:28)
[2017-09-21] MEDS: Digoxin 0.125 MG TAB PO SCH (09:28)
[2017-09-21] MEDS: Carvedilol 3.125 MG TAB PO SCH ×2 (09:28→16:47)
[2017-09-21] MEDS: Apixaban 5 MG TAB PO SCH ×2 (09:28→20:15)
[2017-09-21] MEDS: Potassium Chloride 20 MEQ TAB PO SCH (09:28)
[2017-09-21] MEDS: Metoprolol Tartrate 50 MG TAB PO SCH ×2 (09:28→20:15)
[2017-09-21] MEDS: Saccharomyces boulardii 250 MG CAP PO SCH (09:28)
[2017-09-21] MEDS: Senokot S 8.6-50 MG TAB PO SCH ×2 (09:28→20:15)
[2017-09-21] MEDS: Nystatin Powder 15 GM BOT TOP SCH ×2 (09:29→20:15)
[2017-09-21] MEDS: Insulin Glargine 60 UNITS in Pre-Filled Syringe 1 EACH SC SCH ×2 (09:29→21:21)
--- NOTE | 2017-09-21 10:16 | PDOC.PN ---
- Subjective Encounter Start Date: 09/21/17 Encounter Start Time: 10:14 Subjective: requests rehab placement - Objective Resuscitation Status: Resuscitation Status FULL:Full Resuscitation MAR Reviewed: Yes Vital Signs & Weight: Vital Signs (12 hours) Temp Pulse Resp BP BP Pulse Ox 09/21/17 07:57 98.0 F 97 16 130/61 94 L 09/21/17 06:37 83 18 100 09/21/17 03:57 98.7 F 72 20 167/73 H 98 09/21/17 00:40 87 18 95 09/20/17 23:55 97.6 F 65 18 167/71 H 96 Weight Admit Weight 311 lb 4.8 oz Weight 294 lb 6.4 oz Most Recent Monitor Data Heart Rate from ECG 110 NIBP 141/77 NIBP BP-Mean 105 Respiration from ECG 20 SpO2 83 I&O: 09/20/17 09/21/17 09/22/17 06:59 06:59 06:59 Intake Total 1452 960 Output Total 1950 2700 Balance -946 -4879 Result Diagrams: 09/18/17 07:03 09/18/17 07:03 Additional Labs: Accuchecks 09/21/17 09/20/17 09/20/17 06:05 20:57 17:20 POC Glucose 80 220 H 184 H 09/20/17 11:06 POC Glucose 203 H Phys Exam - Physical Examination Neck: no JVD Respiratory: clear to auscultation bilateral Cardiovascular: no significant murmur, irregular Gastrointestinal: soft, positive bowel sounds Musculoskeletal: edema present deded areas bilat lower ext Dx/Plan (1) Cellulitis of both lower extremities Code(s): L03.115 - CELLULITIS OF RIGHT LOWER LIMB; L03.116 - CELLULITIS OF LEFT LOWER LIMB Status: Resolved (2) Atrial fibrillation with normal ventricular rate Code(s): I48.91 - UNSPECIFIED ATRIAL FIBRILLATION Status: Chronic (3) DM type 2 (diabetes mellitus, type 2) Status: Chronic Qualifiers: Diabetes mellitus care home insulin use: with salvage determiner use Diabetes mellitus complication status: with kidney complications Diabetes mellitus complication detail: with chronic kidney disease Chronic kidney disease stage : stage 3 (moderate) Qualified Code(s): E11.22 - Type 2 diabetes mellitus with diabetic chronic kidney disease; N18.3 - Chronic kidney disease, stage 3 ( moderate); N18.3 - Chronic kidney disease, stage 3 (moderate); N18.3 - Chronic kidney disease, stage 3 (moderate); Z79.4 - salvage determiner (current) use of insulin; Z79.4 - [facility] (current) use of insulin; Z79.4 - salvage determiner (current) use of insulin; Z79.4 - salvage determiner (current) use of insulin (4) HTN (hypertension) Code(s): I10 - ESSENTIAL (PRIMARY) HYPERTENSION Status: Chronic Qualifiers: Hypertension type: essential hypertension Qualified Code(s): I10 - Essential (primary) hypertension (5) Diastolic dysfunction Code(s): I51.9 - HEART DISEASE, UNSPECIFIED Status: Chronic - Plan rehab screen, cont wound care, -: cont anticoag, coreg, dig, diltiazem * .
--- NOTE | 2017-09-21 10:46 | PDOC.CTH ---
<Lillian Gallardo - Last Filed: 09/21/17 10:43> Cardiology Progress Note - Subjective The pt seen and examined. No overnight events. No cardiac complaints. She is more alerted today. - Objective Vital Signs Temp Pulse Resp BP BP Pulse Ox 09/21/17 07:57 98.0 F 97 16 130/61 94 L 09/21/17 06:37 83 18 100 09/21/17 03:57 98.7 F 72 20 167/73 H 98 09/21/17 00:40 87 18 95 09/20/17 23:55 97.6 F 65 18 167/71 H 96 Admit Weight 311 lb 4.8 oz Weight 294 lb 6.4 oz 09/20/17 09/21/17 09/22/17 06:59 06:59 06:59 Intake Total 1452 960 Output Total 1950 2700 Balance -498 -6660 - Physical Examination General/Neuro: other: (alerted to self) Neck: no JVD present Lungs: CTA (diminished at bases) Heart: other: (irregular) Abdomen: soft Extremities: other: (generalized edema; which improving) - Telemetry Telemetry Rhythm: Afib 90s - Labs Result Diagrams: 09/18/17 07:03 09/18/17 07:03 - Assessment/Plan 1. Chronic Afib with RVR - Well controlled HR with Diltiazem 120mg PO qd, Digoxin 0.125mg PO qd, and Eliquis 5mg BID. Cont. to monitor on tele. 2. Sepsis 2/2 BLE cellulitis with ulceration and drainage and possible bacteremia? - On Atbx; managed by PCP 3. HTN - stable. 4. DM type 2 - managed by PCP 5. Chronic kidney disease stage 3 with Hyperkalemia - improving. 6. Chronic lymphedema in BLE - wound care tx 7. PM placement in 2004 and change out in 2016 - PM interrogation showed normal function 8. Morbid obese - MAR reviewed * [id number] score: 4 (CHF, HTN, DM, female). On Eliquis 5mg BID * From Cardiac standpoint, the pt is stable to tx to Rehab. Review of Systems - Review of Systems Constitutional: reports: no symptoms reported EENTM: reports: no symptoms reported Respiratory: reports: no symptoms reported Cardiac (ROS): reports: no symptoms reported ABD/GI: reports: no symptoms reported : reports: no symptoms reported Musculoskeletal: reports: no symptoms reported <Felecia King - Last Filed: 09/21/17 20:14> Cardiology Progress Note - Objective Vital Signs Temp Pulse Pulse Pulse Resp BP BP 09/21/17 19:53 98.5 F 86 18 09/21/17 18:50 75 18 09/21/17 15:14 97.7 F 82 16 09/21/17 13:22 82 16 09/21/17 13:11 86 98 129/53 L 135/62 09/21/17 13:10 98.2 F 78 16 09/21/17 10:00 98.0 F 97 16 BP BP Pulse Ox 09/21/17 19:53 136/60 95 09/21/17 18:50 98 09/21/17 15:14 123/66 94 L 09/21/17 13:22 98 09/21/17 13:11 09/21/17 13:10 130/61 96 09/21/17 10:00 97 Admit Weight 311 lb 4.8 oz Weight 294 lb 6.4 oz 09/20/17 09/21/17 09/22/17 06:59 06:59 06:59 Intake Total 1452 960 360 Output Total 1950 1730 2750 Balance -499 -2288 -3790 - Labs Result Diagrams: 09/18/17 07:03 09/18/17 07:03 - Assessment/Plan Pt. was seen and eval. by me. I agree with the A/P by the OILSEED MEAT PRESSER. She will likely go to SNU or rehab in the next day or so.I will check her digoxin level in AM. Chest clear. Irreg/irreg.
[2017-09-21 11:40] VITALS: BMI 46.0
[2017-09-21] MEDS: traMADol HCl 50 MG TAB PO PRN (13:07)
[2017-09-21] MEDS: HYDROcodone/Acetaminophen 5/325 mg Tablet PO PRN (20:35)
[2017-09-22 05:18] LABS: Platelet Count 538 thou/uL (130-400)
[2017-09-22 05:38] LABS: Digoxin 0.43 ng/mL (0.8-2.0)
[2017-09-22] MEDS: Furosemide 100 MG/10 ML VIAL SLOW IVP SCH (05:40)
[2017-09-22 06:45] VITALS: TEMP 98.1
[2017-09-22] MEDS: Potassium Chloride 20 MEQ TAB PO SCH (08:43)
[2017-09-22] MEDS: Saccharomyces boulardii 250 MG CAP PO SCH (08:43)
[2017-09-22] MEDS: Carvedilol 3.125 MG TAB PO SCH (08:44)
[2017-09-22] MEDS: Fluconazole 100 MG TAB PO SCH (08:44)
[2017-09-22] MEDS: traMADol HCl 50 MG TAB PO PRN (08:44)
[2017-09-22] MEDS: Nystatin Powder 15 GM BOT TOP SCH (08:45)
[2017-09-22] MEDS: Valsartan 80 MG TAB PO SCH (08:45)
[2017-09-22] MEDS: Apixaban 5 MG TAB PO SCH (08:45)
[2017-09-22] MEDS: Metoprolol Tartrate 50 MG TAB PO SCH (08:45)
[2017-09-22] MEDS: Multivitamin W/ Minerals 1 TAB PO SCH (08:45)
[2017-09-22] MEDS: Digoxin 0.125 MG TAB PO SCH (08:45)
[2017-09-22] MEDS: Insulin Glargine 60 UNITS in Pre-Filled Syringe 1 EACH SC SCH (08:45)
[2017-09-22] MEDS: Senokot S 8.6-50 MG TAB PO SCH (08:52)
--- NOTE | 2017-09-22 08:55 | PDOC.CTH ---
<Lillian Gallardo - Last Filed: 09/22/17 08:54> Cardiology Progress Note - Objective Vital Signs Temp Pulse Resp BP Pulse Ox 09/22/17 07:42 98.1 F 84 16 139/63 96 09/22/17 06:47 75 16 94 L 09/22/17 04:40 98.1 F 94 16 136/80 99 09/21/17 23:10 74 16 95 Admit Weight 311 lb 4.8 oz Weight 294 lb 6.4 oz 09/21/17 09/22/17 09/23/17 06:59 06:59 06:59 Intake Total 960 900 Output Total 2700 3600 Balance -1740 -2700 - Physical Examination General/Neuro: alert & oriented x3 Neck: no JVD present Lungs: CTA Heart: RRR Abdomen: soft Extremities: other: (generalized edema) - Telemetry Telemetry Rhythm: SR - Labs Result Diagrams: 09/22/17 04:47 09/22/17 04:47 - Assessment/Plan 1. Chronic Afib with RVR - Well controlled HR with Diltiazem 120mg PO qd, Digoxin 0.125mg PO qd, and Eliquis 5mg BID. Dig level 0.43 and Cr 0.73. Cont. to monitor on tele. 2. Sepsis 2/2 BLE cellulitis with ulceration and drainage and possible bacteremia? - On Atbx; managed by PCP 3. HTN - stable. 4. DM type 2 - managed by PCP 5. Chronic kidney disease stage 3 with Hyperkalemia - improving. 6. Chronic lymphedema in BLE - wound care tx 7. PM placement in 2004 and change out in 2016 - PM interrogation showed normal function 8. Morbid obese - MAR reviewed * [id number] score: 4 (CHF, HTN, DM, female). On Eliquis 5mg BID * From Cardiac standpoint, the pt is stable to tx to Rehab. Review of Systems - Review of Systems Constitutional: reports: no symptoms reported EENTM: reports: no symptoms reported Respiratory: reports: no symptoms reported Cardiac (ROS): reports: no symptoms reported ABD/GI: reports: no symptoms reported : reports: no symptoms reported Musculoskeletal: reports: no symptoms reported <Felecia King - Last Filed: 09/22/17 13:50> Cardiology Progress Note - Objective Vital Signs Temp Pulse Resp BP Pulse Ox 09/22/17 13:40 78 18 92 L 09/22/17 12:07 98.1 F 72 20 139/60 93 L 09/22/17 08:00 98.1 F 84 16 96 09/22/17 07:42 98.1 F 84 16 139/63 96 09/22/17 06:47 75 16 94 L 09/22/17 04:40 98.1 F 94 16 136/80 99 Admit Weight 311 lb 4.8 oz Weight 294 lb 6.4 oz 09/21/17 09/22/17 09/23/17 06:59 06:59 06:59 Intake Total 960 900 Output Total 2700 3600 Balance -1740 -2700 - Labs Result Diagrams: 09/22/17 04:47 09/22/17 04:47 - Assessment/Plan Pt. seen and eval. by me. I agree with the A/P by the DIESEL FITTER MECHANIC. Chest vlear ant. Irreg /Ireg. Pt. to transfer to Rehab today.
[2017-09-22 12:35] VITALS: BP 139/60
== END 2017-09-22 15:40 | DRG 871 ==
LOC: ERS 14:16 → T4-B 19:30 → CCU 09-08 09:53 → 2NO 09-08 16:59 → IMCU/EMU 09-09 19:43 → 2NO 09-19 12:15
PROVIDERS: ADMIT Internal Medicine; ATTEND Internal Medicine
PROC: 02HV33Z Insertion of Infusion Device into Superior Vena Cava, Percutaneous Approach (ICD-10-PCS; principal; 2017-09-11)
PROC: 5A09357 Assistance with Respiratory Ventilation, Less than 24 Consecutive Hours, Continuous Positive Airway Pressure (ICD-10-PCS; 2017-09-14)
DX: A41.9 Sepsis, unspecified organism (principal); I50.33 Acute on chronic diastolic (congestive) heart failure; J96.01 Acute respiratory failure with hypoxia; G92 Toxic encephalopathy; L03.116 Cellulitis of left lower limb; L03.115 Cellulitis of right lower limb; E87.1 Hypo-osmolality and hyponatremia; E87.2 Acidosis; I13.0 Hypertensive heart and chronic kidney disease with heart failure and stage 1 through stage 4 chronic kidney disease, or unspecified chronic kidney disease; Z68.42 Body mass index [BMI] 45.0-49.9, adult; E11.22 Type 2 diabetes mellitus with diabetic chronic kidney disease; N18.3 Chronic kidney disease, stage 3 (moderate); I48.2 Chronic atrial fibrillation; E66.01 Morbid (severe) obesity due to excess calories; R65.20 Severe sepsis without septic shock; E78.5 Hyperlipidemia, unspecified; J45.20 Mild intermittent asthma, uncomplicated; K21.9 Gastro-esophageal reflux disease without esophagitis; E11.65 Type 2 diabetes mellitus with hyperglycemia; E83.42 Hypomagnesemia; I89.0 Lymphedema, not elsewhere classified; I25.10 Atherosclerotic heart disease of native coronary artery without angina pectoris; I87.2 Venous insufficiency (chronic) (peripheral); E87.5 Hyperkalemia; Z99.3 Dependence on wheelchair; Z86.718 Personal history of other venous thrombosis and embolism; Z79.4 Long term (current) use of insulin; Z79.01 Long term (current) use of anticoagulants; Z79.82 Long term (current) use of aspirin; Z79.899 Other long term (current) drug therapy; Z95.0 Presence of cardiac pacemaker; Z96.652 Presence of left artificial knee joint
CPT/HCPCS: 36415; 36416; 36569; 70450; 71045; 80048; 80053; 80162; 80202; 81001; 82140; 82565; 82607; 82746; 82805; 83605; 83735; 83880; 84100; 84443; 85014; 85018; 85025; 85049; 85610; 85730; 87040; 87086; 93005; 93010; 93306; 94640; 94660; 94760; 96365; 96367; 96375; A4216; C1751; G8978-GP-CN; G8979-GP-CK; G8987-GO-CL; G8987-GO-CM; G8988-GO-CI; G8988-GO-CK; J0696; J1160; J1630; J1644; J1650; J1815; J1940; J2060; J2270; J2543; J3010; J3370; J3475; J3480; J3486; J7050; J7620

== ENCOUNTER 2017-10-08 09:23 | Emergency (ER) | payer MEDICARE, BC ==
[2017-10-08 09:59] LABS: #Eosinphils 0.4 thou/uL (0.0-0.7); #Lymphocytes 1.6 thou/uL (1.20-3.40); %Basophils 0.2 % (0.0-1.0); %Eosinophils 5.1 % (0.0-10.0); %Lymphocytes 19.7 % (21.0-51.0); %Monocytes 11.9 % (0.0-10.0); Mean Corpuscular HGB CONC 30.2 g/dL (32.0-36.0); Mean Corpuscular Hemoglobin 25.7 pg (27.0-31.0); Mean Corpuscular Volume 85.3 fL (78.0-98.0); Mean Platelet Volume 6.9 fL (7.4-10.4); Platelet Count 354 thou/uL (130-400); RBC Distribution Width 18.7 % (11.5-14.5); Red Blood Cell (RBC) Count 4.29 mill/uL (4.20-5.40)
[2017-10-08 10:18] LABS: Bilirubin Negative (Negative); Blood, Urine Small (Negative); Clarity TURBID (Clear); Glucose, Urine (Dipstick) Negative (Negative); Leukocyte Large (Negative); Nitrite Positive (Negative); Protein, Urine (Dipstick) Trace mg/dL (Neg-Trace); Specific Gravity, Urine 1.023 (1.002-1.036); Urobilinogen 0.2 mg/dL (0.2-1.0)
[2017-10-08 10:19] LABS: Bacteria/HPF 4+ HPF (None Seen)
[2017-10-08] MEDS ORDERED: Ibuprofen 200 MG TAB ONE (10:19)
[2017-10-08 10:21] LABS: Pathc Cast-AUWi Flag 11.56 (0-2.49)
[2017-10-08 10:27] LABS: ALT (SGPT) 19 U/L (8-55); AST (SGOT) 21 U/L (5-34); Albumin 3.2 g/dL (3.4-4.8); Alkaline Phosphatase 223 U/L (40-150); Anion Gap 14 mmol/L (10-20); BUN (Urea Nitrogen) 16 mg/dL (9.8-20.1); Bilirubin, Total 0.6 mg/dL (0.2-1.2); Calc. Creatinine Clearance 0 mL/min (70-130); Calcium 9.3 mg/dL (7.8-10.44); Carbon Dioxide 22 mmol/L (23-31); Chloride 108 mmol/L (98-107); Estimated GFR-MDRD 59; Globulin 3.7 g/dL (2.4-3.5); Glucose 77 mg/dL (83-110); Potassium 4.3 mmol/L (3.5-5.1); Protein, Total 6.9 g/dL (6.0-8.3); Sodium 140 mmol/L (136-145)
[2017-10-08 10:29] LABS: CKMB 1.6 ng/mL (0-6.6); Troponin I Less than 0.010 ng/mL (< 0.028)
[2017-10-08 10:33] LABS: Hyaline Casts/LPF NONE SEEN LPF (0-3 Hyaline); Other Casts/LPF None Seen LPF (0-3 Hyaline)
[2017-10-08] MEDS ORDERED: cefTRIAXone\\ROCEPHIN 1 GM VIAL ONE (11:02)
[2017-10-08] MEDS ORDERED: Sodium Chloride 0.9% 100 ML ONE (11:02)
--- NOTE | 2017-10-08 12:26 | RAD ---
PORTABLE CHEST 1 VIEW: DATE: 10/08/17. TIME: 10:12 a.m. HISTORY: Altered mental status. FINDINGS: Comparison is made with the exam of 09/15/17. The heart size is enlarged. A left-side pacemaker device remains in place. Right upper extremity PI CC line has been removed in the interim. The lungs are expanded without lobar consolidation, pneumot horax, natividad pulmonary edema, or pleural effusions seen. Interspinal lead is again noted. IMPRESSION: No acute process. POS: JOSE
== END 2017-10-08 13:22 ==
LOC: ERS 09:23
DX: N39.0 Urinary tract infection, site not specified (principal); K21.9 Gastro-esophageal reflux disease without esophagitis; Z86.718 Personal history of other venous thrombosis and embolism; E11.9 Type 2 diabetes mellitus without complications; I48.91 Unspecified atrial fibrillation; I12.0 Hypertensive chronic kidney disease with stage 5 chronic kidney disease or end stage renal disease; N18.3 Chronic kidney disease, stage 3 (moderate); I50.9 Heart failure, unspecified; Z79.4 Long term (current) use of insulin; Z79.899 Other long term (current) drug therapy
CPT/HCPCS: 36415; 51701; 71045; 80053; 81003; 81015; 82553; 84484; 85025; 87077; 87086; 87186; 93005; 94760; 96365; A4353; J0696; J7050